=== PATIENT | male | born 1990 | race American Indian/Alaskan Native ===

== ENCOUNTER 2018-04-15 04:46 | Emergency (ER) | payer SELFPAY ==
[2018-04-15 05:45] VITALS: BP 117/71
[2018-04-15 06:18] LABS: Basophils # (Auto) 0.1 K/mm3 (0.0-0.1); Basophils % (Auto) 0.5 % (0.0-1.8); Eosinophils # (Auto) 0.3 K/mm3 (0.0-0.4); Eosinophils % (Auto) 2.4 % (0.0-4.3); Hematocrit 40.1 % (35.5-45.6); Hemoglobin 13.5 gm/dl (11.8-15.2); Lymphocytes # (Auto) 2.1 K/mm3 (1.2-5.4); Lymphocytes % (Auto) 19.4 % (13.4-35.0); Mean Corpuscular HGB Conc 34 % (32-34); Mean Corpuscular Hemoglobin 29 pg (28-32); Mean Corpuscular Volume 87 fl (84-94); Monocytes # (Auto) 0.8 K/mm3 (0.0-0.8); Monocytes % (Auto) 7.3 % (0.0-7.3); Platelet Count 321 K/mm3 (140-440); Red Blood Count 4.61 M/mm3 (3.65-5.03); Red Cell Distribution Width 13.9 % (13.2-15.2)
[2018-04-15 06:30] LABS: BUN/Creatinine Ratio 9; Blood Urea Nitrogen 9 mg/dL (9-20); Calcium 9.2 mg/dL (8.4-10.2); Hemolysis Index 5
== END 2018-04-15 09:00 | disposition left against medical advice (07) ==
LOC: EDBD → ED 04:46
DX: R56.9 Unspecified convulsions (principal); Z53.21 Procedure and treatment not carried out due to patient leaving prior to being seen by health care provider
CPT/HCPCS: 36415; 80048; 85025; G0480; 80320

== ENCOUNTER 2018-04-15 09:00 | Inpatient (IN) | payer MEDICARE, OTHER ==
[2018-04-15 09:45] LABS: Basophils # (Auto) 0.1 K/mm3 (0.0-0.1); Basophils % (Auto) 0.5 % (0.0-1.8); Eosinophils % (Auto) 0.2 % (0.0-4.3); Hematocrit 42.3 % (35.5-45.6); Lymphocytes # (Auto) 0.9 K/mm3 (1.2-5.4); Lymphocytes % (Auto) 8.7 % (13.4-35.0); Mean Corpuscular HGB Conc 33 % (32-34); Mean Corpuscular Hemoglobin 29 pg (28-32); Mean Corpuscular Volume 88 fl (84-94); Monocytes # (Auto) 0.5 K/mm3 (0.0-0.8); Platelet Count 343 K/mm3 (140-440); Red Blood Count 4.82 M/mm3 (3.65-5.03)
[2018-04-15 09:58] LABS: BUN/Creatinine Ratio 13; Blood Urea Nitrogen 13 mg/dL (9-20); Hemolysis Index 5
--- NOTE | 2018-04-15 10:32 | Emergency Department Report ---
ED General Adult HPI - General Chief complaint: Dyspnea/Respdistress Stated complaint: ROLANDO/CP Time Seen by Provider: 04/15/18 10:26 Source: patient, EMS Mode of arrival: Wheelchair Limitations: Altered Mental Status - History of Present Illness Initial comments: A 27-year-old male who presents after being brought in by EMS after patient was picked up at [facility]. Patient initially presented with a complaint of anxiety and was outside of the emergency department. Patient then went over to [facility] and called 911 and EMS states that he was sweating. Patient began breathing heavily and had an elevated heart rate. Patient currently is not answering questions. At 0745 patient was able to hold a conversation with security and patient was able to hold a conversation. Patient states that he is short of breath. Patient was answering in "yes sir" and "no sir" when asked questions. Patient was noted to be diaphoretic however. I spoke with patient's mother and states that he has a history of asthma and panic attacks and patient takes clonazepam. Patient's mother states that he has been on this therapy for the five months and his psychiatrist wants to take him off of this medication. - Related Data Allergies Allergy/AdvReac Type Severity Reaction Status Date / Time No Known Allergies Allergy Unverified 04/15/18 05:37 ED Review of Systems ROS: Stated complaint: ROLANDO/CP Other details as noted in HPI Constitutional: denies: chills, fever Eyes: denies: eye pain, eye discharge, vision change ENT: denies: ear pain, throat pain Respiratory: shortness of breath. denies: cough, wheezing Cardiovascular: denies: chest pain, palpitations Endocrine: no symptoms reported Gastrointestinal: denies: abdominal pain, nausea, diarrhea Genitourinary: denies: urgency, dysuria Musculoskeletal: denies: back pain, joint swelling, arthralgia Skin: denies: rash, lesions Neurological: denies: headache, weakness, paresthesias Psychiatric: denies: anxiety, depression Hematological/Lymphatic: denies: easy bleeding, easy bruising ED Past Medical Hx - Past Medical History Previous Medical History?: No Hx Seizures: Yes Hx Psychiatric Treatment: Yes (anxiety) - Surgical History Past Surgical History?: No - Social History Smoking Status: Never Smoker Substance Use Type: None ED Physical Exam - General Limitations: Altered Mental Status General appearance: alert, other (not answering questions; breathing heavily and periodically looks around room) - Head Head exam: Present: atraumatic, normocephalic - Eye Eye exam: Present: normal appearance - ENT ENT exam: Present: mucous membranes dry - Neck Neck exam: Present: normal inspection - Respiratory Respiratory exam: Present: normal lung sounds bilaterally. Absent: respiratory distress - Cardiovascular Cardiovascular Exam: Present: normal rhythm, tachycardia. Absent: systolic murmur, diastolic murmur, rubs, gallop - GI/Abdominal GI/Abdominal exam: Present: soft, normal bowel sounds - Rectal Rectal exam: Present: deferred - Extremities Exam Extremities exam: Present: normal inspection - Back Exam Back exam: Present: normal inspection - Neurological Exam Neurological exam: Present: other (patient moving upper and lower extremities without difficulty) - Psychiatric Psychiatric exam: Present: anxious, flat affect - Skin Skin exam: Present: warm, dry, intact, normal color. Absent: rash ED Course Vital Signs 04/15/18 04/15/18 04/15/18 09:16 12:06 13:00 Temperature 98.9 F Pulse Rate 133 H 116 H 118 H Respiratory 38 H 38 H 38 H Rate Blood Pressure 130/69 Blood Pressure 125/78 124/68 [Right] O2 Sat by Pulse 97 100 100 Oximetry O2 Sat by Pulse Oximetry [ Anterior Bilateral Throughout] 04/15/18 04/15/18 04/15/18 14:00 15:00 16:32 Temperature 98.5 F Pulse Rate 130 H 122 H 143 H Respiratory 30 H 28 H Rate Blood Pressure Blood Pressure 121/71 121/78 [Right] O2 Sat by Pulse 99 99 98 Oximetry O2 Sat by Pulse Oximetry [ Anterior Bilateral Throughout] 04/15/18 04/15/18 04/15/18 16:46 17:00 17:16 Temperature Pulse Rate 146 H 150 H 151 H Respiratory Rate Blood Pressure 120/77 132/68 128/77 Blood Pressure [Right] O2 Sat by Pulse 98 98 99 Oximetry O2 Sat by Pulse Oximetry [ Anterior Bilateral Throughout] 04/15/18 04/15/18 04/15/18 17:30 17:46 17:50 Temperature 98.0 F Pulse Rate 151 H 157 H 140 H Respiratory 30 H Rate Blood Pressure 128/77 148/92 106/50 Blood Pressure [Right] O2 Sat by Pulse 99 98 Oximetry O2 Sat by Pulse 97 Oximetry [ Anterior Bilateral Throughout] 04/15/18 04/15/18 04/15/18 17:56 18:00 18:15 Temperature Pulse Rate 141 H 138 H 148 H Respiratory Rate Blood Pressure 110/45 106/50 104/38 Blood Pressure [Right] O2 Sat by Pulse 97 Oximetry O2 Sat by Pulse Oximetry [ Anterior Bilateral Throughout] 04/15/18 04/15/18 04/15/18 18:16 18:30 18:46 Temperature Pulse Rate 141 H 152 H 157 H Respiratory Rate Blood Pressure 110/45 104/38 103/40 Blood Pressure [Right] O2 Sat by Pulse 97 98 97 Oximetry O2 Sat by Pulse Oximetry [ Anterior Bilateral Throughout] 04/15/18 04/15/18 04/15/18 19:00 19:15 19:16 Temperature Pulse Rate 146 H 152 H 153 H Respiratory Rate Blood Pressure 92/34 90/35 90/35 Blood Pressure [Right] O2 Sat by Pulse 97 97 Oximetry O2 Sat by Pulse Oximetry [ Anterior Bilateral Throughout] 04/15/18 04/15/18 04/15/18 19:30 19:45 19:46 Temperature Pulse Rate 162 H 167 H 167 H Respiratory Rate Blood Pressure 92/40 115/43 102/39 Blood Pressure [Right] O2 Sat by Pulse 98 97 Oximetry O2 Sat by Pulse Oximetry [ Anterior Bilateral Throughout] 04/15/18 04/15/18 04/15/18 20:00 20:15 20:16 Temperature Pulse Rate 169 H 168 H 169 H Respiratory Rate Blood Pressure 115/43 70/39 115/43 Blood Pressure [Right] O2 Sat by Pulse 97 97 Oximetry O2 Sat by Pulse Oximetry [ Anterior Bilateral Throughout] 04/15/18 20:28 Temperature Pulse Rate 169 H Respiratory Rate Blood Pressure 55/29 Blood Pressure [Right] O2 Sat by Pulse Oximetry O2 Sat by Pulse Oximetry [ Anterior Bilateral Throughout] - Reevaluation(s) Reevaluation #1: 04/15/18 11:51 Patient urinated in the emergency department and began to urinate in other patient's rooms. Patient continues to not speak. Patient's mother presented to the emergency department and states the patient received an Invega shot 1 week previously. Mother states that patient has a diagnoses of bipolar disorder but is not in agreement with that diagnoses. Mother also states the patient was admitted to an inpatient psych facility in [place] 6 months ago. patient has been placed on a 1013. - Central Line Placement Left Femoral Time Out Performed: Yes MD Prep: mask, gown, gloves Central Line Prep: Chlorhexidine scrub Ultrasound Used for Placement: No Central Line Lumen Inserted: triple Bloods Obtained for Lab: Yes Central Line Position: good blood return, all ports aspirated, flus, sutured in place with 3-0, sutured in place with nyl Dressing Applied: Tegaderm - Intubation Sedative: Etomidate Mg Given: 30 Laryngoscope: Stewart Size: 4 ET Tube Size: 7.5 Tube Placement Confirmation: visualized tube passing t, equal breath sounds bilat, confirmation by capnometr Patient Tolerated Procedure: well ED Medical Decision Making - Lab Data Result diagrams: 04/15/18 09:25 04/15/18 09:25 - EKG Data -: EKG Interpreted by Me EKG shows normal: sinus rhythm Rate: tachycardia - EKG Data Interpretation: normal EKG - Radiology Data Radiology results: image reviewed - Medical Decision Making Patient was noted to have an elevated salicylate level. Poison control was consulted. Patient was given an amp of bicarbonate and was started on a bicarbonate drip with 3 amps of bicarbonate in a liter bag going at 150 mL per hour. Poison control also states to hold off on intubation. Poison Control was made aware of the patient's mental status and his tachypnea being present. Patient however remains having a normal O2 saturation on room air of 99%. Poison control and specifically the longwall headgate operator recommends if possible to hold off on intubation stating that the increased respiratory rate that the patient has will be more beneficial to the patient than the patient being on the ventilator. [employer] Field Technician also states that it patient does require ventilator patient will need to have an excessive respiratory rate that matches his current respiratory rate which is currently now 38.. Nephrology was consulted regarding the patient as well. Patient had a Vas-Cath placed in right femoral region and we will be set up for dialysis. Patient to be admitted to the ICU setting. In speaking with poison control they recommended patient to have every hourly labs. These labs include a urine pH, a blood pH, salicylate level, and a CMP level. The potassium level should be 4.0 and if it is under this level that meq of potassium can be added to the bicarbonate drip. Patient also is to meet the parameter of having a urine pH of 7.5-8.0. Patient is to have a serum pH of 7.55 as well. Poison control states to continue to check a salicylate level every hourly until patient's salicylate level normalizes. Poison control will continue to check in on the patient as well. Patient continued to have tachypnea but became less responsive despite having normal oxygen saturation. patient was intubated by myself. ' Dialysis then arrived and after 20 minutes of dialysis. Patient's tachycardia worsened and patient had no pressure to correlate. patient was immediately started on levophed and this was maximed. patient then needed a second pressor and his blood pressure returned. patient to be admitted to the ICU for continued managment and treatment. - Differential Diagnosis STEMI; NSTEMI; Arrythmia; Dehdyration; electrolyte abnormality Critical Care Time: Yes Critical care time in (mins) excluding proc time.: 72 Critical care attestation.: If time is entered above; I have spent that time in minutes in the direct care of this critically ill patient, excluding procedure time. Critical care time includes time spent on direct bedside care, physician consultation, and frequent reassessments. ED Disposition Clinical Impression: Salicylate overdose, Encephalopathy Respiratory failure Qualifiers: Chronicity: acute Respiratory failure complication: hypoxia Qualified Code(s): J96.01 - Acute respiratory failure with hypoxia Disposition: 09 OP ADMIT IP TO THIS HOSP Is pt being admited?: Yes Condition: Stable Time of Disposition: 20:54
[2018-04-15] MEDS ORDERED: NACL 0.9% 1000 ML 1,000 ML IV ONE ×4 (10:47→20:13)
[2018-04-15] MEDS ORDERED: PROVENTIL IH ONE (11:01)
[2018-04-15] MEDS ORDERED: ATIVAN IV ONE ×3 (11:38→14:20)
[2018-04-15] MEDS ORDERED: ATIVAN IM STA (11:46)
[2018-04-15] MEDS ORDERED: ATIVAN ONE (11:49)
[2018-04-15] MEDS ORDERED: SODIUM BICARBONATE 150 MEQ in D5W 1,000 ML IV ONE (13:15)
[2018-04-15] MEDS ORDERED: SODIUM BICARBONATE IV STA (13:25)
[2018-04-15] MEDS ORDERED: SODIUM BICARBONATE IV ONE ×2 (14:00→18:36)
[2018-04-15 14:37] LABS: Amphetamine Screen,Urine PRESUMPTIVE NEGATIVE; Benzodiazepines Screen,Urine PRESUMPTIVE NEGATIVE; Cannabinoid Screen,Urine PRESUMPTIVE NEGATIVE; Cocaine Screen,Urine PRESUMPTIVE NEGATIVE; Methadone Screen,Urine PRESUMPTIVE NEGATIVE; Opiate Screen,Urine PRESUMPTIVE NEGATIVE
--- NOTE | 2018-04-15 14:46 | History and Physical Report ---
History of Present Illness Chief complaint: confused, unresponsive History of present illness: 27 YO Male with Bipolar Disorder, Seizure Disorder, Anxiety presents to ED for evaluation. Pt is confused, and unresponsive at time of exam. Pt is unable to provide history. Pt mother is at bedside during exam and provides history. As per mother, the patient has been under the care of a psychiatrist for the past 5 months for Panic Attacks. EMS was notified after patient was found confused, and wandering in parking lot at [facility]. Pt was confused, and diaphoretic. Pt transported to ED for further care and evaluation. Pt seen and evaluated in ED and found to have Encephalopathy, Salicylate Toxicity,Acidosis, and Acute Respiratory Failure. Pt underwent emergent dialysis catheter placement. Pt admitted to ICU. Nephrology consulted in ED for urgent dialysis. Pulmonary consulted in ED. Pt intubated, sedated and placed on vent support. Poison control notified in ED. Past History Past Medical History: other (bipolar, seizure, anxiety) Past Surgical History: No surgical history, Other (reviewed) Social history: single. denies: smoking, alcohol abuse, prescription drug abuse Medications and Allergies Allergies Allergy/AdvReac Type Severity Reaction Status Date / Time No Known Allergies Allergy Unverified 04/15/18 05:37 Active Meds: Active Medications Sodium Bicarbonate 150 meq/ (Dextrose) 1,150 mls @ 150 mls/hr IV DIRECT ONE Stop: 04/15/18 20:54 Sodium Chloride (Nacl 0.9% 1000 Ml) 1,000 mls @ 999 mls/hr IV BOLUS ONE Stop: 04/15/18 14:46 Review of Systems ROS unobtainable: due to mental status Exam - Constitutional Vitals: Temp Pulse Resp BP Pulse Ox 98.9 F 118 H 38 H 124/68 100 04/15/18 09:16 04/15/18 13:00 04/15/18 13:00 04/15/18 13:00 04/15/18 13:00 General appearance: Present: severe distress, obese - EENT Eyes: Present: miosis - Neck Neck: Present: supple, normal ROM - Respiratory Respiratory effort: labored Respiratory: bilateral: diminished, rhonchi - Cardiovascular Rhythm: other (tachycardia) Heart Sounds: Present: S1 & S2. Absent: rub, click - Extremities Extremities: pulses symmetrical, No edema Peripheral Pulses: within normal limits - Abdominal General gastrointestinal: Present: soft, non-tender, non-distended, normal bowel sounds Male genitourinary: Present: normal - Integumentary Integumentary: Present: clear, dry, clammy, decreased turgor - Musculoskeletal Musculoskeletal: generalized weakness - Psychiatric Psychiatric: no appropriate mood/affect, no intact judgment & insight, no memory intact - Neurologic Neurologic: no gait normal Results - Labs CBC & Chem 7: 04/15/18 09:25 04/15/18 09:25 Labs: Abnormal lab results 04/15/18 04/15/18 04/15/18 Range/Units 09:15 09:25 09:25 Lymph % (Auto) 8.7 L (13.4-35.0) % Lymph # 0.9 L (1.2-5.4) K/mm3 Seg Neutrophils % 85.6 H (40.0-70.0) % Seg Neutrophils # 9.3 H (1.8-7.7) K/mm3 POC ABG pH (7.35-7.45) POC ABG pCO2 (35-45) POC ABG pO2 (80-105) Sodium 136 L (137-145) mmol/L Carbon Dioxide 15 L (22-30) mmol/L Glucose 133 H (75-100) mg/dL POC Glucose 110 H (70-105) Total Creatine Kinase (55-170) units/L Salicylates (2.8-20.0) mg/dL Acetaminophen (10.0-30.0) ug/mL 04/15/18 04/15/18 04/15/18 Range/Units 10:54 10:57 10:57 Lymph % (Auto) (13.4-35.0) % Lymph # (1.2-5.4) K/mm3 Seg Neutrophils % (40.0-70.0) % Seg Neutrophils # (1.8-7.7) K/mm3 POC ABG pH (7.35-7.45) POC ABG pCO2 (35-45) POC ABG pO2 (80-105) Sodium (137-145) mmol/L Carbon Dioxide (22-30) mmol/L Glucose (75-100) mg/dL POC Glucose (70-105) Total Creatine Kinase 190 H (55-170) units/L Salicylates 104.5 H (2.8-20.0) mg/dL Acetaminophen < 5.0 L (10.0-30.0) ug/mL 04/15/18 Range/Units 14:16 Lymph % (Auto) (13.4-35.0) % Lymph # (1.2-5.4) K/mm3 Seg Neutrophils % (40.0-70.0) % Seg Neutrophils # (1.8-7.7) K/mm3 POC ABG pH 7.546 H (7.35-7.45) POC ABG pCO2 14.8 L (35-45) POC ABG pO2 112 H (80-105) Sodium (137-145) mmol/L Carbon Dioxide (22-30) mmol/L Glucose (75-100) mg/dL POC Glucose (70-105) Total Creatine Kinase (55-170) units/L Salicylates (2.8-20.0) mg/dL Acetaminophen (10.0-30.0) ug/mL Assessment and Plan - Patient Problems (1) Encephalopathy Current Visit: Yes Status: Acute Plan to address problem: CT head, neuro checks, supportive care, (2) Respiratory failure Current Visit: Yes Status: Acute Qualifiers: Chronicity: acute Respiratory failure complication: hypoxia Qualified Code(s): J96.01 - Acute respiratory failure with hypoxia Plan to address problem: Pt intubated for airway protection, Pt sedated. Pulmonary consulted in ED, wean vent as tolerated, daily SBT, The high probability of a clinically significant, sudden or life threatening deterioration of the [pulmonary, neuro, renal] system(s) required my full and direct attention, intervention and personal management. The aggregate critical care time was [65] minutes. This time is in addition to time spent performing reported procedures but includes the following: [x] Data Review and interpretation [x] Patient assessment and monitoring of vital signs [x] Documentation [x] Medication orders and management (3) Salicylate poisoning syndrome Current Visit: Yes Status: Acute Qualifiers: Encounter type: initial encounter Plan to address problem: Poison Control consulted in ED, supportive care, IV bicarbonate, serial ABG, BMP , Nephrology consulted for dialysis, Vascular service consulted for urgent dialysis catheter placement. Poison contol recommended labs: urine pH, a blood pH, salicylate level, and CMP level. Serum potassium goal: greater than or equal to 4.0. If less than 4.) then add potassium to the bicarbonate drip. A urine pH of 7.5-8.0. Patient is to have a serum pH of 7.55 as well. Poison control states to continue to check a salicylate level every hourly until patient's salicylate level normalizes. Poison control will continue to check in on the patient as well. (4) Metabolic acidosis Current Visit: Yes Status: Acute Plan to address problem: IVF resuscitation therapy, IV bicarbonate therapy, serial BMP, (5) DVT prophylaxis Current Visit: Yes Status: Acute Plan to address problem: SCD to ble while in bed.
--- NOTE | 2018-04-15 14:50 | XRay Report ---
AP CHEST: HISTORY: Shortness of breath AP view of the chest demonstrates a normal mediastinal and cardiac contour with clear lungs and normal bony and soft tissue structures. IMPRESSION: Unremarkable AP chest.
[2018-04-15] MEDS ORDERED: HEPARIN/NS 5000 UNIT/500ML(CATH LAB) 1,000 ML IR ONE (15:14)
[2018-04-15] MEDS ORDERED: VERSED ONE (15:14)
[2018-04-15] MEDS ORDERED: SUBLIMAZE ONE (15:14)
[2018-04-15] MEDS ORDERED: HEPARIN 10,000 UNITS/10 ML ONE (15:14)
[2018-04-15] MEDS ORDERED: NITROGLYCERIN SYRINGE 0 ML ONE (15:15)
[2018-04-15] MEDS ORDERED: XYLOCAINE 2% INFILTRATI ONE (15:15)
--- NOTE | 2018-04-15 15:29 | Operative Report ---
Operative Report Operative Report: Exam: Ultrasound and fluoroscopic guided placement of Vas-Cath Clinical indication: Patient with a history of altered mental status and electrolyte imbalances, combative Date: 04/15/2018 Procedure: Following an explanation of the risks, benefits and alternatives; written informed consent was obtained. Patient was brought to the injury graphic suite and placed in supine position on the examination table. Initial ultrasound evaluation of his groin demonstrated a patent right common femoral vein. Patient's groin was prepped and draped in usual sterile fashion. 1% lidocaine was used for anesthesia. Under ultrasound guidance, the right common femoral vein was cannulated with a 7 cm 18-gauge needle. A 0.035 guidewire was advanced into the IVC under fluoroscopy to document intravenous positioning. The needle was removed and following serial dilation, a 30 cm dialysis catheter was placed over the guidewire and advance centrally. The guidewire was removed. All 3 ports flushed and aspirated easily and were then locked with appropriate volumes of heparin. The catheter was securely fastened of the skin surface using 2-0 Ethilon suture and a sterile dressing applied. Patient tolerated the procedure well. There were no immediate post procedure complications. Sedation was not utilize secondary to patient's obtunded status. Continuous cardiopulmonary monitoring was utilized. Impression: 1) Ultrasound and fluoroscopic guided placement of vas cath via the right common femoral vein secondary to patient's combative state and altered mental status.
[2018-04-15] MEDS ORDERED: NACL 0.9% 100 ML IV PRN (16:14)
--- NOTE | 2018-04-15 16:15 | Consultation ---
History of Present Illness - History of Present Illness Thank you for the consultation ! Patient was evaluated today My assessment and plan are as follows; Altered mental status with elevated acetyl salicylic acid level, and a patient who deliberately took significant amount of aspirin, though difficult to find how many according to patient's mother she noticed he was taking too many aspirin tablets in the last 48 hours patient also does have metabolic acidosis hyperventilation[facility] been recommended Had a long discussion with patient's mother at the bedside at this time dialysis catheter has been placed we'll start the patient on hemodialysis for at least 4 hours At the same time I would recommend alkalization of the urine with bicarbonate containing fluid aggressive hydration and close follow-up on the renal function His prognosis is currently guarded this was clearly explained to the patient's mother Altered mental status: Slowly improving at this time aggressive hydration close monitoring of electrolytes We'll continue to follow and make recommendations from renal standpoint Patient's mother was adequately counseled and educated regarding multiple renal related issues. overall prognosis remains guarded at this time All renal related questions were answered and simple Macedonian pertinent lab studies as well as imaging results were also discussed with patient's mother We will continue to follow and make recommendations from renal standpoint. Thank you for the consultation Author: Ulysses Chu M.D. [facility], [address] [place] [address] Tel; [phone] Source of information: From patient History of present illness Patient is a 27-year-old -Tongan male with history of underlying bipolar disorder and anxiety asthma, will also has been experiencing chronic back pain for which he has been followed by Dr. Manjeet Taylor. Patient also follows up with [facility], where he is being treated for bipolar disorder, according to patient's mother who is here at the bedside, she found him taking too many aspirin tablets which were in generic form, but she does not know how many she took is breathing started becoming labored and he was brought into the ER where he was noted to have metabolic acidosis hyperventilation altered mental status and elevated acetyl salicylic acid, by the time I came to see the patient he was somewhat arousable but still was hyperventilating, and his mother was at the bedside According to the mother he has no prior history of any suicidal gesture, other than taking aspirin tablets she does not think that it did anything else His sensorium when he came in was quite altered but he is slowly waking up Poison center has been contacted, dialysis has been recommended Past medical history significant for Bipolar disorder Asthma Anxiety Current allergies: None Home medication: Reviewed Social history patient has psychiatric problems Family history unable to obtain due to altered mental status Review of systems: Patient has altered mental status Labored breathing mild tachycardia on the monitor approximately 125/minute all other review of systems negativ Physical examination General: Well-built -Tongan male Vitals: Reviewed General: No acute distress, but patient has mildly labored sherlyn HEENT: Oral mucosa moist no pallor or icterus Neck: Supple without any JVD thyromegaly or nodular mass Chest: Clear to auscultation Heart: Regular rate and rhythm S1-S2 heard no S3-S4 Abdomen: Soft nontender, bowel sounds present no renal bruit no suprapubic masses no CVA tenderness noted Extremity: Minimal edema dry skin no peripheral cyanosis Endocrine: Thyroid not enlarged Psychiatric: No agitation and aggression noted Musculoskeletal: No joint effusion noted Labs and x-rays: Reviewed from this admission Medications and Allergies Allergies Allergy/AdvReac Type Severity Reaction Status Date / Time No Known Allergies Allergy Unverified 04/15/18 05:37 Active Meds: Active Medications Albuterol (Proventil) 2.5 mg IH Q3HRT PRN PRN Reason: Shortness Of Breath Sodium Bicarbonate 150 meq/ (Dextrose) 1,150 mls @ 150 mls/hr IV DIRECT ONE Stop: 04/15/18 20:54 Last Admin: 04/15/18 13:30 Dose: 150 mls/hr Sodium Chloride (Sodium Chloride Flush Syringe 10 Ml) 10 ml IV BID ANASTASIA Sodium Chloride (Sodium Chloride Flush Syringe 10 Ml) 10 ml IV PRN PRN PRN Reason: LINE FLUSH Exam - Vital Signs Vital signs: Vital Signs Temp Pulse Resp BP Pulse Ox 98.9 F 133 H 38 H 130/69 97 04/15/18 09:16 04/15/18 09:16 04/15/18 09:16 04/15/18 09:16 04/15/18 09:16 Results - Lab Results 04/15/18 09:25 04/15/18 09:25 Most recent lab results Calcium 9.0 mg/dL (8.4-10.2) 04/15/18 09:25
[2018-04-15] MEDS ORDERED: DIPRIVAN 10 MG/ML 0 MG/0 ML BOTTLE IV ONE (17:25)
[2018-04-15] MEDS ORDERED: DIPRIVAN 10 MG/ML 1,000 MG/100 ML BOTTLE IV ONE (17:28)
[2018-04-15] MEDS: DIPRIVAN 10 MG/ML 1,000 MG/100 ML BOTTLE IV SCH (17:30)
--- NOTE | 2018-04-15 18:28 | XRay Report ---
FINAL REPORT EXAM: XR CHEST 1V AP HISTORY: s/p intubation TECHNIQUE: Frontal portable view of the chest Comparison: None FINDINGS: The tip of the endotracheal tube is projected at the inferior aspect of the clavicles. There is no evidence of focal infiltrate, pneumothorax or pleural fluid collection. The cardiac silhouette appears to be enlarged. This may be exaggerated by portable technique. The thoracic aorta and bony structures are unremarkable. IMPRESSION: 1. Tip of endotracheal tube projected in satisfactory position at the inferior aspect of the clavicles. 2. The cardiac silhouette appears to be enlarged. This may be exaggerated by portable technique.
[2018-04-15] MEDS: LEVOPHED 8 MG in NACL 0.9% 250ML 242 ML IV SCH (18:30)
[2018-04-15] MEDS ORDERED: LEVOPHED DRIP 4 MG/NS 250 ML 4 MG/250 ML BAG IV ONE ×2 (18:48→21:33)
[2018-04-15] MEDS ORDERED: NACL 0.9% 1000 ML 1,000 ML ONE ×2 (18:58→19:36)
[2018-04-15] MEDS ORDERED: INTROPIN DRIP 800 MG/D5W 250 ML 800 MG/250 ML BAG IV ONE (19:17)
[2018-04-15] MEDS ORDERED: AMIDATE IV ONE ×2 (19:19→20:14)
[2018-04-15] MEDS: Vasostrict 20 UNIT in NACL 0.9% 100 ML IV SCH (19:20)
[2018-04-15] MEDS ORDERED: NACL 0.9% 1000 ML 4,000 ML ONE (19:58)
[2018-04-15] MEDS ORDERED: INTROPIN DRIP 800 MG/D5W 250 ML 800 MG/250 ML BAG IV SCH (20:00)
[2018-04-15] MEDS ORDERED: ADRENALIN 8 MG in NACL 0.9% 250ML 242 ML IV SCH (20:00)
[2018-04-15] MEDS ORDERED: QUELICIN ONE (20:14)
[2018-04-15] MEDS ORDERED: ROMAZICON IV ONE (20:14)
[2018-04-15] MEDS ORDERED: NACL 0.9% 1000 ML 4,000 ML IV SCH (21:00)
[2018-04-16] MEDS: LEVOPHED 8 MG in NACL 0.9% 250ML 242 ML IV SCH ×4 (00:07→13:48)
[2018-04-16] MEDS: SODIUM CHLORIDE FLUSH SYRINGE 10 ML IV SCH ×2 (00:08→09:05)
[2018-04-16] MEDS: DIPRIVAN 10 MG/ML 1,000 MG/100 ML BOTTLE IV SCH ×2 (00:14→04:35)
[2018-04-16 00:42] LABS: Alanine Aminotransferase 38 units/L (7-56); Albumin 2.9 g/dL (3.9-5); BUN/Creatinine Ratio 13; Blood Urea Nitrogen 21 mg/dL (9-20); Calcium 6.3 mg/dL (8.4-10.2); Hemolysis Index 3
[2018-04-16] MEDS ORDERED: K-DUR PO ONE ×2 (01:08→21:30)
[2018-04-16] MEDS ORDERED: MOTRIN PO ONE (01:10)
--- NOTE | 2018-04-16 01:15 | Event Note ---
Case discussed with poison control Will check salicylate level q4h and other parameters as outlined in [facility] note salicylate Level came back at 50, start bicarb drip, replete potassium SIRS, start emperic antibiotics, check lactate, blood culture, give 1 dose of motrin Keep glucose between 150-200, check fingersticks q1h Case discussed with poison control The high probability of a clinically significant, sudden or life threatening deterioration of the [respiratory, hemodynamic and neurological] system(s) required my full and direct attention, intervention and personal management. The aggregate critical care time was [40] minutes. This time is in addition to time spent performing reported procedures but includes the following: [x] Data Review and interpretation [x] Patient assessment and monitoring of vital signs [x] Documentation [x] Medication orders and management Addendum Spoke with poison control again Adoption Coordinator suggested another round of hemodialysis would be appropriate salicylate levels decreasing, increased bicarbonate drip
[2018-04-16 01:27] LABS: Bilirubin,Urine NEG (Negative); Blood,Urine NEG (Negative); Color,Urine Yellow (Yellow); Urobilinogen,Urine < 2.0 mg/dL (<2.0)
[2018-04-16] MEDS: KCL 10MEQ/100ML 10 MEQ/100 ML BAG IV SCH ×4 (01:51→05:46)
[2018-04-16] MEDS ORDERED: VANCOMYCIN 2,000 MG in NACL 0.9% 500 ML 500 ML IV ONE (02:00)
[2018-04-16] MEDS ORDERED: VANCOMYCIN/NS 1 GM/250 ML 1 GM/250 ML BAG IV SCH (02:00)
[2018-04-16] MEDS: ZOSYN/NS 4.5GM/100ML 4.5 GM/100 ML VIAL IV SCH ×2 (02:08→09:14)
[2018-04-16] MEDS: SODIUM BICARBONATE 150 MEQ in D5W 1,000 ML IV SCH ×3 (02:31→19:25)
[2018-04-16] MEDS ORDERED: D50W (25GM) Syringe IV PRN (03:03)
[2018-04-16 03:20] LABS: Calcium 6.4 mg/dL (8.4-10.2)
[2018-04-16] MEDS ORDERED: POTASSIUM CHLORIDE FEEDTUBE ONE ×3 (03:20→14:00)
[2018-04-16] MEDS: D50W (25GM) Syringe IV PRN ×14 (03:35→22:57)
[2018-04-16] MEDS: Vasostrict 20 UNIT in NACL 0.9% 100 ML IV SCH (06:05)
[2018-04-16] MEDS: NACL 0.9% 1000 ML 1,000 ML IV SCH ×5 (06:09→21:40)
[2018-04-16 07:13] LABS: Calcium 6.5 mg/dL (8.4-10.2)
--- NOTE | 2018-04-16 08:47 | Progress Note ---
Subjective Interval history: Patient was seen today for follow-up on multiple renal related issues Events of this hospitalization noted Has had hemodialysis yesterday, Patient has had profound hypotension tachycardia received IV fluid Salicylate level still elevated, poison Center has already been contacted Patient denies having any chest pain pressure or shortness of breath Vitals labs intake output medications were reviewed Social history: Reviewed Allergies: Reviewed Family history: Reviewed Physical examination HEENT: Oral mucosa moist no pallor or icterus Neck: Supple no JVD Chest: Clear to auscultation anteriorly CVS: Regular rate and rhythm S1 and S2 heard Abdomen: Soft nontender no suprapubic masses no organomegaly appreciable Extremity: Dry skin less than 1+ peripheral edema Musculoskeletal: No joint effusion noted in knees and ankle Neurological: Alert awake Dermatology: No petechial rashes Psychiatry: No evidence of any agitation and aggression noted Assessment and plan Salicylate intoxication, status post hemodialysis Acute renal failure likely due to above, continue to follow and monitor renal function patient also has had profound hypotension volume depletion likely has developed acute tubular necrosis Continue with urine alkalinization, at the same time correct the potassium Please avoid Motrin with acute kidney injury Hypocalcemia continue to monitor, will give IV calcium today Hypokalemia goal potassium was around 4 check magnesium level as well Would also like to check a lactic acid level today Prognosis is guarded to poor with current comorbidities this has been clearly explained to patient's mother as of yesterday as well Continue with the supportive care for now we'll continue to follow and make recommendation from renal standpoint We'll continue to follow and make recommendation from renal standpoint Objective - Vital Signs Vital signs: Vital Signs - 12hr 04/15/18 04/15/18 04/15/18 20:48 21:00 21:15 Temperature Pulse Rate 164 H 163 H 160 H Pulse Rate [ From Monitor] Respiratory Rate Blood Pressure 68/27 68/27 71/32 O2 Sat by Pulse 98 Oximetry O2 Sat by Pulse Oximetry [ Anterior Bilateral Throughout] 04/15/18 04/15/18 04/15/18 21:16 21:30 21:45 Temperature Pulse Rate 163 H 159 H 151 H Pulse Rate [ From Monitor] Respiratory Rate Blood Pressure 67/25 71/32 77/34 O2 Sat by Pulse 98 98 Oximetry O2 Sat by Pulse Oximetry [ Anterior Bilateral Throughout] 09/19/18 09/19/18 09/19/18 21:46 22:00 22:14 Temperature 97.0 F L Pulse Rate 151 H 147 H 148 H Pulse Rate [ From Monitor] Respiratory 20 Rate Blood Pressure 70/31 77/34 95/38 O2 Sat by Pulse 98 98 Oximetry O2 Sat by Pulse 97 Oximetry [ Anterior Bilateral Throughout] 04/15/18 04/15/18 04/15/18 22:16 23:00 23:07 Temperature Pulse Rate 146 H 142 H Pulse Rate [ 140 H From Monitor] Respiratory 35 H 35 H Rate Blood Pressure 95/38 O2 Sat by Pulse 98 99 99 Oximetry O2 Sat by Pulse Oximetry [ Anterior Bilateral Throughout] 04/15/18 04/15/18 04/15/18 23:10 23:20 23:30 Temperature Pulse Rate 141 H 139 H 138 H Pulse Rate [ From Monitor] Respiratory 35 H 35 H 35 H Rate Blood Pressure 102/39 102/44 O2 Sat by Pulse 99 99 99 Oximetry O2 Sat by Pulse Oximetry [ Anterior Bilateral Throughout] 04/15/18 04/15/18 04/15/18 23:40 23:43 23:50 Temperature Pulse Rate 139 H 139 H 138 H Pulse Rate [ From Monitor] Respiratory 35 H 36 H 36 H Rate Blood Pressure 105/44 105/44 110/45 O2 Sat by Pulse 99 99 99 Oximetry O2 Sat by Pulse Oximetry [ Anterior Bilateral Throughout] 04/16/18 04/16/18 04/16/18 00:00 00:03 00:06 Temperature 101.6 F H Pulse Rate 138 H 138 H 139 H Pulse Rate [ 142 H From Monitor] Respiratory 37 H 37 H Rate Blood Pressure 110/45 104/45 109/46 O2 Sat by Pulse 99 99 99 Oximetry O2 Sat by Pulse Oximetry [ Anterior Bilateral Throughout] 04/16/18 04/16/18 04/16/18 00:10 00:20 00:30 Temperature Pulse Rate 140 H 141 H 142 H Pulse Rate [ From Monitor] Respiratory 37 H 35 H 37 H Rate Blood Pressure 107/44 107/44 109/48 O2 Sat by Pulse 99 97 98 Oximetry O2 Sat by Pulse Oximetry [ Anterior Bilateral Throughout] 04/16/18 04/16/18 04/16/18 00:40 00:50 01:00 Temperature Pulse Rate 142 H 142 H 142 H Pulse Rate [ From Monitor] Respiratory 37 H 38 H 37 H Rate Blood Pressure 111/52 111/52 112/51 O2 Sat by Pulse 97 97 97 Oximetry O2 Sat by Pulse Oximetry [ Anterior Bilateral Throughout] 04/16/18 04/16/18 04/16/18 01:10 01:20 01:30 Temperature Pulse Rate 141 H 142 H 140 H Pulse Rate [ From Monitor] Respiratory 37 H 39 H 38 H Rate Blood Pressure 115/49 113/52 101/37 O2 Sat by Pulse 97 97 97 Oximetry O2 Sat by Pulse Oximetry [ Anterior Bilateral Throughout] 04/16/18 04/16/18 04/16/18 01:40 01:50 02:00 Temperature Pulse Rate 139 H 140 H 138 H Pulse Rate [ 142 H From Monitor] Respiratory 37 H 37 H 37 H Rate Blood Pressure 102/46 109/45 102/47 O2 Sat by Pulse 97 97 97 Oximetry O2 Sat by Pulse Oximetry [ Anterior Bilateral Throughout] 04/16/18 04/16/18 04/16/18 02:10 02:20 02:30 Temperature Pulse Rate 139 H 139 H 139 H Pulse Rate [ From Monitor] Respiratory 37 H 38 H 37 H Rate Blood Pressure 102/47 108/46 104/43 O2 Sat by Pulse 96 96 96 Oximetry O2 Sat by Pulse Oximetry [ Anterior Bilateral Throughout] 04/16/18 04/16/18 04/16/18 02:40 02:50 03:00 Temperature Pulse Rate 138 H 136 H 136 H Pulse Rate [ From Monitor] Respiratory 36 H 38 H 38 H Rate Blood Pressure 114/42 106/48 116/46 O2 Sat by Pulse 97 97 97 Oximetry O2 Sat by Pulse Oximetry [ Anterior Bilateral Throughout] 04/16/18 04/16/18 04/16/18 03:10 03:20 03:30 Temperature Pulse Rate 135 H 136 H 134 H Pulse Rate [ From Monitor] Respiratory 38 H 39 H 36 H Rate Blood Pressure 107/46 111/47 111/49 O2 Sat by Pulse 97 97 97 Oximetry O2 Sat by Pulse Oximetry [ Anterior Bilateral Throughout] 04/16/18 04/16/18 04/16/18 03:35 03:40 03:50 Temperature Pulse Rate 133 H 132 H Pulse Rate [ From Monitor] Respiratory 39 H 38 H Rate Blood Pressure 111/49 118/50 116/51 O2 Sat by Pulse 97 96 96 Oximetry O2 Sat by Pulse Oximetry [ Anterior Bilateral Throughout] 04/16/18 04/16/18 04/16/18 04:00 04:10 04:20 Temperature Pulse Rate 129 H 126 H 127 H Pulse Rate [ From Monitor] Respiratory 37 H 38 H 36 H Rate Blood Pressure 119/47 110/50 112/49 O2 Sat by Pulse 96 96 96 Oximetry O2 Sat by Pulse Oximetry [ Anterior Bilateral Throughout] 04/16/18 04/16/18 04/16/18 04:30 04:40 04:50 Temperature Pulse Rate 128 H 126 H 126 H Pulse Rate [ From Monitor] Respiratory 37 H 36 H 37 H Rate Blood Pressure 110/45 102/46 106/46 O2 Sat by Pulse 95 96 96 Oximetry O2 Sat by Pulse Oximetry [ Anterior Bilateral Throughout] 04/16/18 04/16/18 04/16/18 05:00 05:10 05:20 Temperature Pulse Rate 125 H 122 H 122 H Pulse Rate [ From Monitor] Respiratory 36 H 37 H 37 H Rate Blood Pressure 107/45 103/50 107/49 O2 Sat by Pulse 96 97 96 Oximetry O2 Sat by Pulse Oximetry [ Anterior Bilateral Throughout] 04/16/18 04/16/18 04/16/18 05:30 05:40 05:50 Temperature Pulse Rate 124 H 123 H 123 H Pulse Rate [ From Monitor] Respiratory 37 H 37 H 37 H Rate Blood Pressure 106/48 101/47 100/49 O2 Sat by Pulse 96 96 96 Oximetry O2 Sat by Pulse Oximetry [ Anterior Bilateral Throughout] 04/16/18 04/16/18 04/16/18 06:00 06:10 06:20 Temperature 99.1 F Pulse Rate 123 H 123 H 123 H Pulse Rate [ 142 H From Monitor] Respiratory 36 H 37 H 38 H Rate Blood Pressure 91/46 109/49 109/49 O2 Sat by Pulse 96 96 95 Oximetry O2 Sat by Pulse Oximetry [ Anterior Bilateral Throughout] 04/16/18 04/16/18 04/16/18 06:30 06:40 06:50 Temperature Pulse Rate 123 H 123 H 121 H Pulse Rate [ From Monitor] Respiratory 36 H 37 H 38 H Rate Blood Pressure 112/48 113/49 112/50 O2 Sat by Pulse 95 95 96 Oximetry O2 Sat by Pulse Oximetry [ Anterior Bilateral Throughout] 04/16/18 04/16/18 04/16/18 07:00 07:10 07:20 Temperature Pulse Rate 122 H 123 H 124 H Pulse Rate [ From Monitor] Respiratory 37 H 36 H 38 H Rate Blood Pressure 110/50 110/50 100/55 O2 Sat by Pulse 96 95 95 Oximetry O2 Sat by Pulse Oximetry [ Anterior Bilateral Throughout] 04/16/18 04/16/18 04/16/18 07:31 07:40 07:50 Temperature Pulse Rate 124 H 124 H 123 H Pulse Rate [ From Monitor] Respiratory 36 H 36 H 38 H Rate Blood Pressure 97/46 101/50 102/52 O2 Sat by Pulse 95 95 95 Oximetry O2 Sat by Pulse Oximetry [ Anterior Bilateral Throughout] 04/16/18 04/16/18 08:00 08:10 Temperature 100.2 F H Pulse Rate 121 H 121 H Pulse Rate [ 118 H From Monitor] Respiratory 35 H 36 H Rate Blood Pressure 108/52 113/49 O2 Sat by Pulse 97 96 Oximetry O2 Sat by Pulse Oximetry [ Anterior Bilateral Throughout] - Lab 04/15/18 09:25 04/16/18 06:34 Most recent lab results Calcium 6.5 mg/dL (8.4-10.2) L 04/16/18 06:34
--- NOTE | 2018-04-16 09:28 | Progress Note ---
Assessment and Plan Assessment and plan: 1. Ventilator dependent Respiratory failure Pt intubated for airway protection/sedated Pulmonary following 2. Encephalopathy CT head neuro checks, supportive care 3. Salicylate poisoning syndrome Continue Poison Control recommendation IV bicarbonate, serial ABG, BMP Nephrology following 4. Acute Metabolic acidosis IVF resuscitation therapy IV bicarbonate therapy, serial BMP 5. Acute renal failure HD today Monitor urine output IV fluid for hydration/renal perfusion 6. Hypokalemia Replace potassium and magnesium Recheck potassium/mag level post HD GI/ DVT prophylaxis The high probability of a clinically significant, sudden or life threatening deterioration of the [pulmonary, neuro, renal] system(s) required my full and direct attention, intervention and personal management. The aggregate critical care time was [65] minutes. This time is in addition to time spent performing reported procedures but includes the following: [x] Data Review and interpretation [x] Patient assessment and monitoring of vital signs [x] Documentation [x] Medication orders and management History Interval history: Pt is intubated and sedated Hospitalist Physical - Constitutional Vitals: Temp Pulse Resp BP Pulse Ox 100.2 F H 118 H 35 H 104/47 96 04/16/18 08:00 04/16/18 09:10 04/16/18 09:10 04/16/18 09:10 04/16/18 09:10 General appearance: Present: severe distress, obese, other (intubated) - Respiratory Respiratory effort: normal, other (mild labor breathing) Respiratory: bilateral: CTA - Cardiovascular Rhythm: regular (tachy) - Extremities Extremity abnormal: edema (trace) Peripheral Pulses: within normal limits - Integumentary Integumentary: Present: clear, warm, dry - Psychiatric Psychiatric: other (unable to evaluate) Results - Labs CBC & Chem 7: 04/15/18 09:25 04/16/18 10:42 Labs: Laboratory Last Values WBC 10.9 K/mm3 (4.5-11.0) 04/15/18 09:25 RBC 4.82 M/mm3 (3.65-5.03) 04/15/18 09:25 Hgb 14.0 gm/dl (11.8-15.2) 04/15/18 09:25 Hct 42.3 % (35.5-45.6) 04/15/18 09:25 MCV 88 fl (84-94) 04/15/18 09:25 MCH 29 pg (28-32) 04/15/18 09:25 MCHC 33 % (32-34) 04/15/18 09:25 RDW 14.0 % (13.2-15.2) 04/15/18 09:25 Plt Count 343 K/mm3 (140-440) 04/15/18 09:25 Lymph % (Auto) 8.7 % (13.4-35.0) L 04/15/18 09:25 [place] % (Auto) 5.0 % (0.0-7.3) 04/15/18 09:25 Eos % (Auto) 0.2 % (0.0-4.3) 04/15/18 09:25 Baso % (Auto) 0.5 % (0.0-1.8) 04/15/18 09:25 Lymph # 0.9 K/mm3 (1.2-5.4) L 04/15/18 09:25 [place] # 0.5 K/mm3 (0.0-0.8) 04/15/18 09:25 Eos # 0.0 K/mm3 (0.0-0.4) 04/15/18 09:25 Baso # 0.1 K/mm3 (0.0-0.1) 04/15/18 09:25 Seg Neutrophils % 85.6 % (40.0-70.0) H 04/15/18 09:25 Seg Neutrophils # 9.3 K/mm3 (1.8-7.7) H 04/15/18 09:25 POC ABG pH 7.430 (7.35-7.45) 04/16/18 06:20 POC ABG pCO2 34.9 (35-45) L 04/16/18 06:20 POC ABG pO2 93 (80-105) 04/16/18 06:20 POC ABG HCO3 23.2 04/16/18 06:20 POC ABG Total CO2 24 04/16/18 06:20 POC ABG O2 Sat 98 04/16/18 06:20 POC ABG Base Excess -1 04/16/18 06:20 FiO2 30 % 04/16/18 06:20 Sodium 142 mmol/L (137-145) 04/16/18 06:34 Potassium 3.2 mmol/L (3.6-5.0) L 04/16/18 06:34 Chloride 103.5 mmol/L (98-107) 04/16/18 06:34 Carbon Dioxide 23 mmol/L (22-30) 04/16/18 06:34 Anion Gap 19 mmol/L 04/16/18 06:34 BUN 29 mg/dL (9-20) H 04/16/18 06:34 Creatinine 2.2 mg/dL (0.8-1.5) H 04/16/18 06:34 Estimated GFR 43 ml/min 04/16/18 06:34 BUN/Creatinine Ratio 13 % 04/16/18 06:34 Glucose 129 mg/dL (75-100) H 04/16/18 06:34 POC Glucose 121 (70-105) H 04/16/18 08:19 Calcium 6.5 mg/dL (8.4-10.2) L 04/16/18 06:34 Total Bilirubin < 0.20 mg/dL (0.1-1.2) 04/15/18 23:55 AST 85 units/L (5-40) H 04/15/18 23:55 ALT 38 units/L (7-56) 04/15/18 23:55 Alkaline Phosphatase 42 units/L (35-129) 04/15/18 23:55 Total Creatine Kinase 190 units/L (55-170) H 04/15/18 10:57 Troponin T < 0.010 ng/mL (0.00-0.029) 04/15/18 10:57 Total Protein 4.9 g/dL (6.3-8.2) L 04/15/18 23:55 Albumin 2.9 g/dL (3.9-5) L 04/15/18 23:55 Albumin/Globulin Ratio 1.5 % 04/15/18 23:55 Urine Color Yellow (Yellow) 04/15/18 Unknown Urine Turbidity Clear (Clear) 04/15/18 Unknown Urine pH 6.0 (5.0-7.0) 04/15/18 Unknown Ur Specific [place] 1.015 (1.003-1.030) 04/15/18 Unknown Urine Protein 100 mg/dl mg/dL (Negative) 04/15/18 Unknown Urine Glucose (UA) 50 mg/dL (Negative) 04/15/18 Unknown Urine Ketones 20 mg/dL (Negative) 04/15/18 Unknown Urine Blood Neg (Negative) 04/15/18 Unknown Urine Nitrite Neg (Negative) 04/15/18 Unknown Urine Bilirubin Neg (Negative) 04/15/18 Unknown Urine Urobilinogen < 2.0 mg/dL (<2.0) 04/15/18 Unknown Ur Leukocyte Esterase Neg (Negative) 04/15/18 Unknown Urine WBC (Auto) 4.0 /HPF (0.0-6.0) 04/15/18 Unknown Urine RBC (Auto) 2.0 /HPF (0.0-6.0) 04/15/18 Unknown Salicylates 49.2 mg/dL (2.8-20.0) H 04/16/18 06:34 Urine Opiates Screen Presumptive negative 04/15/18 Unknown Urine Methadone Screen Presumptive negative 04/15/18 Unknown Acetaminophen < 5.0 ug/mL (10.0-30.0) L 04/15/18 10:54 Ur Barbiturates Screen Presumptive negative 04/15/18 Unknown Ur Phencyclidine Scrn Presumptive negative 04/15/18 Unknown Ur Amphetamines Screen Presumptive negative 04/15/18 Unknown U Benzodiazepines Scrn Presumptive negative 04/15/18 Unknown Urine Cocaine Screen Presumptive negative 04/15/18 Unknown U Marijuana (THC) Screen Presumptive negative 04/15/18 Unknown Drugs of Abuse Note Disclamer 04/15/18 Unknown Plasma/Serum Alcohol < 0.01 % (0-0.07) 04/15/18 10:56
[2018-04-16] MEDS ORDERED: PEPCID IV SCH (10:00)
--- NOTE | 2018-04-16 10:09 | Progress Note ---
Subjective Date of service: 04/16/18 Objective Vital Signs - 12hr 04/15/18 04/15/18 04/15/18 22:14 22:16 23:00 Temperature 97.0 F L Pulse Rate 148 H 146 H Pulse Rate [ 140 H From Monitor] Respiratory 20 35 H Rate Blood Pressure 95/38 95/38 O2 Sat by Pulse 98 99 Oximetry O2 Sat by Pulse 97 Oximetry [ Anterior Bilateral Throughout] 04/15/18 04/15/18 04/15/18 23:07 23:10 23:20 Temperature Pulse Rate 142 H 141 H 139 H Pulse Rate [ From Monitor] Respiratory 35 H 35 H 35 H Rate Blood Pressure 102/39 O2 Sat by Pulse 99 99 99 Oximetry O2 Sat by Pulse Oximetry [ Anterior Bilateral Throughout] 04/15/18 04/15/18 04/15/18 23:30 23:40 23:43 Temperature Pulse Rate 138 H 139 H 139 H Pulse Rate [ From Monitor] Respiratory 35 H 35 H 36 H Rate Blood Pressure 102/44 105/44 105/44 O2 Sat by Pulse 99 99 99 Oximetry O2 Sat by Pulse Oximetry [ Anterior Bilateral Throughout] 04/15/18 04/16/18 04/16/18 23:50 00:00 00:03 Temperature 101.6 F H Pulse Rate 138 H 138 H 138 H Pulse Rate [ 142 H From Monitor] Respiratory 36 H 37 H Rate Blood Pressure 110/45 110/45 104/45 O2 Sat by Pulse 99 99 99 Oximetry O2 Sat by Pulse Oximetry [ Anterior Bilateral Throughout] 04/16/18 04/16/18 04/16/18 00:06 00:10 00:20 Temperature Pulse Rate 139 H 140 H 141 H Pulse Rate [ From Monitor] Respiratory 37 H 37 H 35 H Rate Blood Pressure 109/46 107/44 107/44 O2 Sat by Pulse 99 99 97 Oximetry O2 Sat by Pulse Oximetry [ Anterior Bilateral Throughout] 04/16/18 04/16/18 04/16/18 00:30 00:40 00:50 Temperature Pulse Rate 142 H 142 H 142 H Pulse Rate [ From Monitor] Respiratory 37 H 37 H 38 H Rate Blood Pressure 109/48 111/52 111/52 O2 Sat by Pulse 98 97 97 Oximetry O2 Sat by Pulse Oximetry [ Anterior Bilateral Throughout] 04/16/18 04/16/18 04/16/18 01:00 01:10 01:20 Temperature Pulse Rate 142 H 141 H 142 H Pulse Rate [ From Monitor] Respiratory 37 H 37 H 39 H Rate Blood Pressure 112/51 115/49 113/52 O2 Sat by Pulse 97 97 97 Oximetry O2 Sat by Pulse Oximetry [ Anterior Bilateral Throughout] 04/16/18 04/16/18 04/16/18 01:30 01:40 01:50 Temperature Pulse Rate 140 H 139 H 140 H Pulse Rate [ From Monitor] Respiratory 38 H 37 H 37 H Rate Blood Pressure 101/37 102/46 109/45 O2 Sat by Pulse 97 97 97 Oximetry O2 Sat by Pulse Oximetry [ Anterior Bilateral Throughout] 04/16/18 04/16/18 04/16/18 02:00 02:10 02:20 Temperature Pulse Rate 138 H 139 H 139 H Pulse Rate [ 142 H From Monitor] Respiratory 37 H 37 H 38 H Rate Blood Pressure 102/47 102/47 108/46 O2 Sat by Pulse 97 96 96 Oximetry O2 Sat by Pulse Oximetry [ Anterior Bilateral Throughout] 04/16/18 04/16/18 04/16/18 02:30 02:40 02:50 Temperature Pulse Rate 139 H 138 H 136 H Pulse Rate [ From Monitor] Respiratory 37 H 36 H 38 H Rate Blood Pressure 104/43 114/42 106/48 O2 Sat by Pulse 96 97 97 Oximetry O2 Sat by Pulse Oximetry [ Anterior Bilateral Throughout] 04/16/18 04/16/18 04/16/18 03:00 03:10 03:20 Temperature Pulse Rate 136 H 135 H 136 H Pulse Rate [ From Monitor] Respiratory 38 H 38 H 39 H Rate Blood Pressure 116/46 107/46 111/47 O2 Sat by Pulse 97 97 97 Oximetry O2 Sat by Pulse Oximetry [ Anterior Bilateral Throughout] 04/16/18 04/16/18 04/16/18 03:30 03:35 03:40 Temperature Pulse Rate 134 H 133 H Pulse Rate [ From Monitor] Respiratory 36 H 39 H Rate Blood Pressure 111/49 111/49 118/50 O2 Sat by Pulse 97 97 96 Oximetry O2 Sat by Pulse Oximetry [ Anterior Bilateral Throughout] 04/16/18 04/16/18 04/16/18 03:50 04:00 04:10 Temperature Pulse Rate 132 H 129 H 126 H Pulse Rate [ From Monitor] Respiratory 38 H 37 H 38 H Rate Blood Pressure 116/51 119/47 110/50 O2 Sat by Pulse 96 96 96 Oximetry O2 Sat by Pulse Oximetry [ Anterior Bilateral Throughout] 04/16/18 04/16/18 04/16/18 04:20 04:30 04:40 Temperature Pulse Rate 127 H 128 H 126 H Pulse Rate [ From Monitor] Respiratory 36 H 37 H 36 H Rate Blood Pressure 112/49 110/45 102/46 O2 Sat by Pulse 96 95 96 Oximetry O2 Sat by Pulse Oximetry [ Anterior Bilateral Throughout] 04/16/18 04/16/18 04/16/18 04:50 05:00 05:10 Temperature Pulse Rate 126 H 125 H 122 H Pulse Rate [ From Monitor] Respiratory 37 H 36 H 37 H Rate Blood Pressure 106/46 107/45 103/50 O2 Sat by Pulse 96 96 97 Oximetry O2 Sat by Pulse Oximetry [ Anterior Bilateral Throughout] 04/16/18 04/16/18 04/16/18 05:20 05:30 05:40 Temperature Pulse Rate 122 H 124 H 123 H Pulse Rate [ From Monitor] Respiratory 37 H 37 H 37 H Rate Blood Pressure 107/49 106/48 101/47 O2 Sat by Pulse 96 96 96 Oximetry O2 Sat by Pulse Oximetry [ Anterior Bilateral Throughout] 04/16/18 04/16/18 04/16/18 05:50 06:00 06:10 Temperature 99.1 F Pulse Rate 123 H 123 H 123 H Pulse Rate [ 142 H From Monitor] Respiratory 37 H 36 H 37 H Rate Blood Pressure 100/49 91/46 109/49 O2 Sat by Pulse 96 96 96 Oximetry O2 Sat by Pulse Oximetry [ Anterior Bilateral Throughout] 04/16/18 04/16/18 04/16/18 06:20 06:30 06:40 Temperature Pulse Rate 123 H 123 H 123 H Pulse Rate [ From Monitor] Respiratory 38 H 36 H 37 H Rate Blood Pressure 109/49 112/48 113/49 O2 Sat by Pulse 95 95 95 Oximetry O2 Sat by Pulse Oximetry [ Anterior Bilateral Throughout] 04/16/18 04/16/18 04/16/18 06:50 07:00 07:10 Temperature Pulse Rate 121 H 122 H 123 H Pulse Rate [ From Monitor] Respiratory 38 H 37 H 36 H Rate Blood Pressure 112/50 110/50 110/50 O2 Sat by Pulse 96 96 95 Oximetry O2 Sat by Pulse Oximetry [ Anterior Bilateral Throughout] 04/16/18 04/16/18 04/16/18 07:20 07:31 07:40 Temperature Pulse Rate 124 H 124 H 124 H Pulse Rate [ From Monitor] Respiratory 38 H 36 H 36 H Rate Blood Pressure 100/55 97/46 101/50 O2 Sat by Pulse 95 95 95 Oximetry O2 Sat by Pulse Oximetry [ Anterior Bilateral Throughout] 04/16/18 04/16/18 04/16/18 07:50 08:00 08:10 Temperature 100.2 F H Pulse Rate 123 H 121 H 121 H Pulse Rate [ 118 H From Monitor] Respiratory 38 H 35 H 36 H Rate Blood Pressure 102/52 108/52 113/49 O2 Sat by Pulse 95 97 96 Oximetry O2 Sat by Pulse Oximetry [ Anterior Bilateral Throughout] 04/16/18 04/16/18 04/16/18 08:20 08:30 08:40 Temperature Pulse Rate 121 H 120 H 118 H Pulse Rate [ From Monitor] Respiratory 37 H 36 H 35 H Rate Blood Pressure 110/48 106/52 109/57 O2 Sat by Pulse 96 96 97 Oximetry O2 Sat by Pulse Oximetry [ Anterior Bilateral Throughout] 04/16/18 04/16/18 04/16/18 08:50 09:00 09:10 Temperature Pulse Rate 119 H 120 H 118 H Pulse Rate [ From Monitor] Respiratory 37 H 38 H 35 H Rate Blood Pressure 106/53 102/51 104/47 O2 Sat by Pulse 96 96 96 Oximetry O2 Sat by Pulse Oximetry [ Anterior Bilateral Throughout] 04/16/18 04/16/18 04/16/18 09:20 09:30 09:40 Temperature Pulse Rate 117 H 117 H 118 H Pulse Rate [ From Monitor] Respiratory 36 H 36 H 36 H Rate Blood Pressure 103/50 100/59 115/52 O2 Sat by Pulse 96 97 97 Oximetry O2 Sat by Pulse Oximetry [ Anterior Bilateral Throughout] CBC and BMP: 04/15/18 09:25 04/16/18 06:34 ABG, PT/INR, D-dimer: ABG POC ABG pH 7.430 (7.35-7.45) 04/16/18 06:20 POC ABG pCO2 34.9 (35-45) L 04/16/18 06:20 POC ABG pO2 93 (80-105) 04/16/18 06:20 POC ABG HCO3 23.2 04/16/18 06:20 POC ABG Total CO2 24 04/16/18 06:20 POC ABG O2 Sat 98 04/16/18 06:20 Abnormal lab findings: Abnormal Labs 04/15/18 04/15/18 04/15/18 09:15 09:25 09:25 Lymph % (Auto) 8.7 L Lymph # 0.9 L Seg Neutrophils % 85.6 H Seg Neutrophils # 9.3 H POC ABG pH POC ABG pCO2 POC ABG pO2 Sodium 136 L Potassium Carbon Dioxide 15 L BUN Creatinine Glucose 133 H POC Glucose 110 H Calcium AST Total Creatine Kinase Total Protein Albumin Salicylates Acetaminophen 04/15/18 04/15/18 04/15/18 10:54 10:57 10:57 Lymph % (Auto) Lymph # Seg Neutrophils % Seg Neutrophils # POC ABG pH POC ABG pCO2 POC ABG pO2 Sodium Potassium Carbon Dioxide BUN Creatinine Glucose POC Glucose Calcium AST Total Creatine Kinase 190 H Total Protein Albumin Salicylates 104.5 H Acetaminophen < 5.0 L 04/15/18 04/15/18 04/15/18 14:16 15:45 18:17 Lymph % (Auto) Lymph # Seg Neutrophils % Seg Neutrophils # POC ABG pH 7.546 H 7.277 L POC ABG pCO2 14.8 L 54.1 H POC ABG pO2 112 H 153 H Sodium Potassium Carbon Dioxide BUN Creatinine Glucose POC Glucose Calcium AST Total Creatine Kinase Total Protein Albumin Salicylates 107.9 H Acetaminophen 04/15/18 04/15/18 04/15/18 20:38 23:55 23:55 Lymph % (Auto) Lymph # Seg Neutrophils % Seg Neutrophils # POC ABG pH POC ABG pCO2 POC ABG pO2 Sodium Potassium 3.0 L D Carbon Dioxide 18 L BUN 21 H Creatinine 1.6 H D Glucose POC Glucose 110 H Calcium 6.3 L D AST 85 H Total Creatine Kinase Total Protein 4.9 L Albumin 2.9 L Salicylates 50.3 H Acetaminophen 04/16/18 04/16/18 04/16/18 00:00 02:03 02:03 Lymph % (Auto) Lymph # Seg Neutrophils % Seg Neutrophils # POC ABG pH 7.517 H POC ABG pCO2 26.3 L POC ABG pO2 173 H Sodium Potassium 3.4 L Carbon Dioxide 17 L BUN 24 H Creatinine 1.8 H Glucose POC Glucose Calcium 6.4 L AST Total Creatine Kinase Total Protein Albumin Salicylates 52.4 H Acetaminophen 04/16/18 04/16/18 04/16/18 04:57 06:06 06:20 Lymph % (Auto) Lymph # Seg Neutrophils % Seg Neutrophils # POC ABG pH POC ABG pCO2 34.9 L POC ABG pO2 Sodium Potassium Carbon Dioxide BUN Creatinine Glucose POC Glucose 121 H 136 H Calcium AST Total Creatine Kinase Total Protein Albumin Salicylates Acetaminophen 04/16/18 04/16/18 04/16/18 06:34 06:34 07:08 Lymph % (Auto) Lymph # Seg Neutrophils % Seg Neutrophils # POC ABG pH POC ABG pCO2 POC ABG pO2 Sodium Potassium 3.2 L Carbon Dioxide BUN 29 H Creatinine 2.2 H Glucose 129 H POC Glucose 168 H Calcium 6.5 L AST Total Creatine Kinase Total Protein Albumin Salicylates 49.2 H Acetaminophen 04/16/18 08:19 Lymph % (Auto) Lymph # Seg Neutrophils % Seg Neutrophils # POC ABG pH POC ABG pCO2 POC ABG pO2 Sodium Potassium Carbon Dioxide BUN Creatinine Glucose POC Glucose 121 H Calcium AST Total Creatine Kinase Total Protein Albumin Salicylates Acetaminophen
--- NOTE | 2018-04-16 10:10 | Consultation ---
History of Present Illness Consult date: 04/16/18 Requesting physician: JENNIFER FINE Reason for consult: other (acute encephalopathy, salicylate poisoning, acute metabolic acidosis, THOMAS) History of present illness: History per Admitting physician, patient is intubated and cannot give a history. 27 YO Male with Bipolar Disorder, Seizure Disorder, Anxiety presents to ED for evaluation. Pt is confused, and unresponsive at time of exam. Pt is unable to provide history. Pt mother is at bedside during exam and provides history. As per mother, the patient has been under the care of a psychiatrist for the past 5 months for Panic Attacks. EMS was notified after patient was found confused, and wandering in parking lot at [facility]. Pt was confused, and diaphoretic. Pt transported to ED for further care and evaluation. Pt seen and evaluated in ED and found to have Encephalopathy, Salicylate Toxicity,Acidosis, and Acute Respiratory Failure. Pt underwent emergent dialysis catheter placement. Pt admitted to ICU. Nephrology consulted in ED for urgent dialysis. Pulmonary consulted in ED. Pt intubated, sedated and placed on vent support. Poison control notified in ED. Patient was seen and examined. Vitals, labs, medications, chart and imaging reviewed. Critically ill intubated, on multiple infusions, encephaloapthic in the ICU Discussed during bedside ICU-IDT rounds with mother in attendance. Briefly, 27 year old man with bipolar disorder, intubated for salicylate toxicity, s/p emergent HD. Past History Past Medical History: other (bipolar, seizure, anxiety) Past Surgical History: No surgical history, Other (reviewed) Social history: single. denies: smoking, alcohol abuse, prescription drug abuse Medications and Allergies Allergies Allergy/AdvReac Type Severity Reaction Status Date / Time No Known Allergies Allergy Unverified 04/15/18 05:37 Home Medications Medication Instructions Recorded Confirmed Last Taken Type Invega Sustenna IM QMONTH 04/16/18 04/09/18 History Klonopin 1 mg PO TID 04/16/18 04/16/18 04/15/18 08:00 History Active Meds: Active Medications Albuterol (Proventil) 2.5 mg IH Q3HRT PRN PRN Reason: Shortness Of Breath Dextrose (D50w (25gm) Syringe) 50 ml IV PRN PRN PRN Reason: Hypoglycemia Last Admin: 04/16/18 08:24 Dose: 50 ml Famotidine (Pepcid) 20 mg IV DAILY ANASTASIA Last Admin: 04/16/18 09:01 Dose: 20 mg Sodium Chloride (Nacl 0.9%) 100 mls @ 999 mls/hr IV CECE PRN PRN Reason: Hypotension Dopamine HCl/Dextrose (Intropin Drip 800 Mg/D5w 250 Ml) 800 mg in 250 mls @ 4.031 mls/hr IV TITR ANASTASIA; Protocol Epinephrine 8 mg/ Sodium (Chloride) 250 mls @ 3.75 mls/hr IV TITR ANASTASIA; Protocol Last Titration: 04/16/18 03:45 Dose: 0 mcg/min, 0 mls/hr Vasopressin 20 unit/ Sodium (Chloride) 101 mls @ 9.09 mls/hr IV TITR ANASTASIA; Protocol Last Admin: 04/16/18 06:05 Dose: 0.03 units/min, 9.09 mls/hr Norepinephrine 8 mg/ Sodium (Chloride) 250 mls @ 3.75 mls/hr IV TITR ANATSASIA; Protocol Last Titration: 04/16/18 08:57 Dose: 28 mcg/min, 52.5 mls/hr Propofol (Diprivan 10 Mg/Ml) 1,000 mg in 100 mls @ 3.225 mls/hr IV TITR ANASTASIA; Protocol Last Titration: 04/16/18 09:42 Dose: Infused Sodium Bicarbonate 150 meq/ (Dextrose) 1,150 mls @ 150 mls/hr IV DIRECT ANASTASIA Last Infusion: 04/16/18 06:40 Dose: 150 mls/hr Piperacillin Sod/Tazobactam Sod (Zosyn/Ns 4.5gm/100ml) 4.5 gm in 100 mls @ 200 mls/hr IV Q8H ANASTASIA; Protocol Last Admin: 04/16/18 09:14 Dose: 200 mls/hr Sodium Chloride (Nacl 0.9% 1000 Ml) 1,000 mls @ 150 mls/hr IV DIRECT ANASTASIA Last Admin: 04/16/18 08:54 Dose: 150 mls/hr Magnesium Sulfate (Magnesium Sulfate 2gm/50ml) 2 gm in 50 mls @ 25 mls/hr IV ONCE ONE Stop: 04/16/18 11:16 Sodium Chloride (Sodium Chloride Flush Syringe 10 Ml) 10 ml IV BID ANASTASIA Last Admin: 09/20/18 09:05 Dose: 10 ml Sodium Chloride (Sodium Chloride Flush Syringe 10 Ml) 10 ml IV PRN PRN PRN Reason: LINE FLUSH Review of Systems ROS unobtainable: due to endotracheal tube, due to mental status Physical Examination Vital signs: Vital Signs Temp Pulse Resp BP Pulse Ox 98.9 F 133 H 38 H 130/69 97 04/15/18 09:16 04/15/18 09:16 04/15/18 09:16 04/15/18 09:16 04/15/18 09:16 General appearance: other (tachypnic, ETT to MVS, unresponsive) Eyes: non-icteric ENT: oropharynx dry Neck: supple, no lymphadenopathy, no JVD Effort: mildly labored Ascultation: Bilateral: diminished breath sounds, rhonchi Cardiovascular: other (Tachycardia, S1,S2, no murmurs, gallops or rubs) Gastrointestinal: normoactive bowel sounds, soft, non-tender, non-distended Integumentary: normal, other (Femoral vascath and femoral CVC) Extremities: no cyanosis, no edema, pulses normal, no ischemia or petechiae Musculoskeletal: no deformities unable to assess other (unable to assess) Results - Laboratory Findings CBC and BMP: 04/15/18 09:25 04/16/18 22:50 ABG POC ABG pH 7.430 (7.35-7.45) 04/16/18 06:20 POC ABG pCO2 34.9 (35-45) L 04/16/18 06:20 POC ABG pO2 93 (80-105) 04/16/18 06:20 POC ABG HCO3 23.2 04/16/18 06:20 POC ABG Total CO2 24 04/16/18 06:20 POC ABG O2 Sat 98 04/16/18 06:20 Abnormal lab findings: Abnormal Labs 04/15/18 04/15/18 04/15/18 09:15 09:25 09:25 Lymph % (Auto) 8.7 L Lymph # 0.9 L Seg Neutrophils % 85.6 H Seg Neutrophils # 9.3 H POC ABG pH POC ABG pCO2 POC ABG pO2 Sodium 136 L Potassium Carbon Dioxide 15 L BUN Creatinine Glucose 133 H POC Glucose 110 H Calcium AST Total Creatine Kinase Total Protein Albumin Salicylates Acetaminophen 04/15/18 04/15/18 04/15/18 10:54 10:57 10:57 Lymph % (Auto) Lymph # Seg Neutrophils % Seg Neutrophils # POC ABG pH POC ABG pCO2 POC ABG pO2 Sodium Potassium Carbon Dioxide BUN Creatinine Glucose POC Glucose Calcium AST Total Creatine Kinase 190 H Total Protein Albumin Salicylates 104.5 H Acetaminophen < 5.0 L 04/15/18 04/15/18 04/15/18 14:16 15:45 18:17 Lymph % (Auto) Lymph # Seg Neutrophils % Seg Neutrophils # POC ABG pH 7.546 H 7.277 L POC ABG pCO2 14.8 L 54.1 H POC ABG pO2 112 H 153 H Sodium Potassium Carbon Dioxide BUN Creatinine Glucose POC Glucose Calcium AST Total Creatine Kinase Total Protein Albumin Salicylates 107.9 H Acetaminophen 04/15/18 04/15/18 04/15/18 20:38 23:55 23:55 Lymph % (Auto) Lymph # Seg Neutrophils % Seg Neutrophils # POC ABG pH POC ABG pCO2 POC ABG pO2 Sodium Potassium 3.0 L D Carbon Dioxide 18 L BUN 21 H Creatinine 1.6 H D Glucose POC Glucose 110 H Calcium 6.3 L D AST 85 H Total Creatine Kinase Total Protein 4.9 L Albumin 2.9 L Salicylates 50.3 H Acetaminophen 04/16/18 04/16/18 04/16/18 00:00 02:03 02:03 Lymph % (Auto) Lymph # Seg Neutrophils % Seg Neutrophils # POC ABG pH 7.517 H POC ABG pCO2 26.3 L POC ABG pO2 173 H Sodium Potassium 3.4 L Carbon Dioxide 17 L BUN 24 H Creatinine 1.8 H Glucose POC Glucose Calcium 6.4 L AST Total Creatine Kinase Total Protein Albumin Salicylates 52.4 H Acetaminophen 04/16/18 04/16/18 04/16/18 04:57 06:06 06:20 Lymph % (Auto) Lymph # Seg Neutrophils % Seg Neutrophils # POC ABG pH POC ABG pCO2 34.9 L POC ABG pO2 Sodium Potassium Carbon Dioxide BUN Creatinine Glucose POC Glucose 121 H 136 H Calcium AST Total Creatine Kinase Total Protein Albumin Salicylates Acetaminophen 04/16/18 04/16/18 04/16/18 06:34 06:34 07:08 Lymph % (Auto) Lymph # Seg Neutrophils % Seg Neutrophils # POC ABG pH POC ABG pCO2 POC ABG pO2 Sodium Potassium 3.2 L Carbon Dioxide BUN 29 H Creatinine 2.2 H Glucose 129 H POC Glucose 168 H Calcium 6.5 L AST Total Creatine Kinase Total Protein Albumin Salicylates 49.2 H Acetaminophen 04/16/18 08:19 Lymph % (Auto) Lymph # Seg Neutrophils % Seg Neutrophils # POC ABG pH POC ABG pCO2 POC ABG pO2 Sodium Potassium Carbon Dioxide BUN Creatinine Glucose POC Glucose 121 H Calcium AST Total Creatine Kinase Total Protein Albumin Salicylates Acetaminophen - Diagnostic Findings Chest x-ray: image reviewed (Bilateral alveolar edema, ETT in good position) Assessment and Plan -Acute hypoxemic respiratory failure -Salicylate poisoning -Metabolic acidosis -Acute encephalopathy -Acute renal failure -SIRS, does not appear to be sepsis related -h/o Bipolar disorder -Unclear as to intentional OD -Obesity -VAP bundle addressed -Adjust minute ventilation to keep pH 7.5, once salicylate levels normalize will resume lung protective strategies -Continue with alkalization of the urine -Serial ABGs, keep Ph 7.5 -Continue to monitor renal function -Serial CMPs, monitor closely for hepatotoxicity -All critical care bundles addressed -Turner catheter for accurate intake and output monitoring, in this critically ill patient with acute renal failure -CXRs prn -Accucheck, keep blood glucose 150-200 -Avoid hypoglycemia, hourly accuchecks -Hourly salicylate monitoring -Bicarbonate infusion -VTE prophylaxis -Stress ulcer prophylaxis -Follow blood cultures, sputum and urine cultures -Discontinue antibiotics -RD for tube feeding recommendations for nutritional support -Vasopressor support for MAP< 65 -Keep on full MVS today, will initiate SBTs in the morning -Agitation management -Replete electrolytes as indicated FULL CODE STATUS Updated mother at the bedside and all her questions were answered. The high probability of a clinically significant, sudden or life threatening deterioration of the [respiratory, renal, hemodynamic and neurological] system(s ) required my full and direct attention, intervention and personal management. The aggregate critical care time was [75] minutes. This time is in addition to time spent performing reported procedures but includes the following: [x] Data Review and interpretation [x] Patient assessment and monitoring of vital signs [x] Documentation [x] Medication orders and management
[2018-04-16] MEDS ORDERED: HEPARIN 10,000 UNITS/10 ML IV PRN (10:42)
[2018-04-16] MEDS ORDERED: NACL 0.9% 100 ML IV PRN (10:42)
[2018-04-16] MEDS ORDERED: NACL 0.9% 1000 ML 1,000 ML IV ONE (10:44)
[2018-04-16 10:45] LABS: Hepatitis B Core IgM Non-Reactive (NonReactive); Hepatitis C Virus Antibody Non-Reactive (NonReactive)
[2018-04-16 11:34] LABS: Calcium 5.8 mg/dL (8.4-10.2)
--- NOTE | 2018-04-16 11:57 | Consultation ---
History of Present Illness - Reason for Consult Consult date: 04/16/18 Reason for consult: Mental Health Evaluation Requesting physician: MARSHAL SARAVIA - Chief Complaint Chief complaint: "The patient is intubated" - History of Present Psychiatric Illness 27-year-old male who presents after being brought in by EMS after patient was picked up at [facility]. The patient initially presented with a complaint of anxiety. He left the ER and went over to [facility], called 911, and EMS stated that he was sweating. Today the patient is intubated. The patient has elevated Salicylate levels (overdose). Per collateral information from his mother Ms Chelsea Nguyen who was at the bedside, she stated that her son has a hx of Bipolar DO. She denies any previous suicide attempts by her son. Per the patient's assign nurse, he stated that the patient maybe extubated in 24 hours. Medications and Allergies Allergies Allergy/AdvReac Type Severity Reaction Status Date / Time No Known Allergies Allergy Unverified 04/15/18 05:37 Active Meds: Active Medications Albuterol (Proventil) 2.5 mg IH Q3HRT PRN PRN Reason: Shortness Of Breath Dextrose (D50w (25gm) Syringe) 50 ml IV PRN PRN PRN Reason: Hypoglycemia Last Admin: 04/16/18 10:16 Dose: 50 ml Famotidine (Pepcid) 20 mg IV DAILY ANASTASIA Last Admin: 04/16/18 09:01 Dose: 20 mg Heparin Sodium (Porcine) (Heparin) 5,000 unit SUB-Q Q8HR ANASTASIA Heparin Sodium (Porcine) (Heparin 10,000 Units/10 Ml) 1,000 unit IV CECE PRN PRN Reason: hemodialysis Sodium Chloride (Nacl 0.9%) 100 mls @ 999 mls/hr IV CECE PRN PRN Reason: Hypotension Dopamine HCl/Dextrose (Intropin Drip 800 Mg/D5w 250 Ml) 800 mg in 250 mls @ 4.031 mls/hr IV TITR ANASTASIA; Protocol Epinephrine 8 mg/ Sodium (Chloride) 250 mls @ 3.75 mls/hr IV TITR ANASTASIA; Protocol Last Titration: 04/16/18 03:45 Dose: 0 mcg/min, 0 mls/hr Vasopressin 20 unit/ Sodium (Chloride) 101 mls @ 9.09 mls/hr IV TITR ANASTASIA; Protocol Last Admin: 04/16/18 06:05 Dose: 0.03 units/min, 9.09 mls/hr Norepinephrine 8 mg/ Sodium (Chloride) 250 mls @ 3.75 mls/hr IV TITR ANASTASIA; Protocol Last Titration: 04/16/18 11:55 Dose: 24 mcg/min, 45 mls/hr Sodium Bicarbonate 150 meq/ (Dextrose) 1,150 mls @ 150 mls/hr IV DIRECT ANASTASIA Last Admin: 04/16/18 11:51 Dose: 150 mls/hr Sodium Chloride (Nacl 0.9% 1000 Ml) 1,000 mls @ 150 mls/hr IV DIRECT ANASTASIA Last Admin: 04/16/18 10:58 Dose: 150 mls/hr Magnesium Sulfate (Magnesium Sulfate 2gm/50ml) 2 gm in 50 mls @ 25 mls/hr IV ONCE ONE Stop: 04/16/18 13:59 Last Admin: 04/16/18 11:46 Dose: 25 mls/hr Fentanyl Citrate (Fentanyl Drip Premix) 2,000 mcg in 100 mls @ 5.375 mls/hr IV TITR ANASTASIA; Protocol Sodium Chloride (Nacl 0.9%) 100 mls @ 999 mls/hr IV CECE PRN PRN Reason: Hypotension Sodium Chloride (Sodium Chloride Flush Syringe 10 Ml) 10 ml IV BID ANASTASIA Last Admin: 04/16/18 09:05 Dose: 10 ml Sodium Chloride (Sodium Chloride Flush Syringe 10 Ml) 10 ml IV PRN PRN PRN Reason: LINE FLUSH Past psychiatric history - Past Medical History Past Medical History: other (Unable to obtain) Past Surgical History: Other (Unable to obtain) - past Psychiatric treatment and history psychiatric treatment history: Per his mother Ms Chelsea Nguyen, she stated that the patient has a hx of Bipolar DO. She denies a fam psy hx. - Social History Social history: lives with family (Per his mother Ms Chelsea Nguyen) Mental Status Exam - Vital signs Last Vital Signs Temp 100.2 F H 04/16/18 08:00 Pulse 116 H 04/16/18 11:50 Resp 37 H 04/16/18 11:50 BP 122/65 04/16/18 11:50 Pulse Ox 97 04/16/18 11:50 - Exam Narrative exam: Unable to complete the MSE because of the patient's condition. Results Result Diagrams: 04/15/18 09:25 04/16/18 10:42 Abnormal lab results 04/15/18 04/15/18 04/15/18 Range/Units 14:16 15:45 18:17 POC ABG pH 7.546 H 7.277 L (7.35-7.45) POC ABG pCO2 14.8 L 54.1 H (35-45) POC ABG pO2 112 H 153 H (80-105) Potassium (3.6-5.0) mmol/L Carbon Dioxide (22-30) mmol/L BUN (9-20) mg/dL Creatinine (0.8-1.5) mg/dL Glucose (75-100) mg/dL POC Glucose (70-105) Calcium (8.4-10.2) mg/dL Magnesium (1.7-2.3) mg/dL AST (5-40) units/L Total Protein (6.3-8.2) g/dL Albumin (3.9-5) g/dL Salicylates 107.9 H (2.8-20.0) mg/dL 04/15/18 04/15/18 04/15/18 Range/Units 20:38 23:55 23:55 POC ABG pH (7.35-7.45) POC ABG pCO2 (35-45) POC ABG pO2 (80-105) Potassium 3.0 L D (3.6-5.0) mmol/L Carbon Dioxide 18 L (22-30) mmol/L BUN 21 H (9-20) mg/dL Creatinine 1.6 H D (0.8-1.5) mg/dL Glucose (75-100) mg/dL POC Glucose 110 H (70-105) Calcium 6.3 L D (8.4-10.2) mg/dL Magnesium (1.7-2.3) mg/dL AST 85 H (5-40) units/L Total Protein 4.9 L (6.3-8.2) g/dL Albumin 2.9 L (3.9-5) g/dL Salicylates 50.3 H (2.8-20.0) mg/dL 04/16/18 04/16/18 04/16/18 Range/Units 00:00 02:03 02:03 POC ABG pH 7.517 H (7.35-7.45) POC ABG pCO2 26.3 L (35-45) POC ABG pO2 173 H (80-105) Potassium 3.4 L (3.6-5.0) mmol/L Carbon Dioxide 17 L (22-30) mmol/L BUN 24 H (9-20) mg/dL Creatinine 1.8 H (0.8-1.5) mg/dL Glucose (75-100) mg/dL POC Glucose (70-105) Calcium 6.4 L (8.4-10.2) mg/dL Magnesium (1.7-2.3) mg/dL AST (5-40) units/L Total Protein (6.3-8.2) g/dL Albumin (3.9-5) g/dL Salicylates 52.4 H (2.8-20.0) mg/dL 04/16/18 04/16/18 04/16/18 Range/Units 04:57 06:06 06:20 POC ABG pH (7.35-7.45) POC ABG pCO2 34.9 L (35-45) POC ABG pO2 (80-105) Potassium (3.6-5.0) mmol/L Carbon Dioxide (22-30) mmol/L BUN (9-20) mg/dL Creatinine (0.8-1.5) mg/dL Glucose (75-100) mg/dL POC Glucose 121 H 136 H (70-105) Calcium (8.4-10.2) mg/dL Magnesium (1.7-2.3) mg/dL AST (5-40) units/L Total Protein (6.3-8.2) g/dL Albumin (3.9-5) g/dL Salicylates (2.8-20.0) mg/dL 04/16/18 04/16/18 04/16/18 Range/Units 06:34 06:34 07:08 POC ABG pH (7.35-7.45) POC ABG pCO2 (35-45) POC ABG pO2 (80-105) Potassium 3.2 L (3.6-5.0) mmol/L Carbon Dioxide (22-30) mmol/L BUN 29 H (9-20) mg/dL Creatinine 2.2 H (0.8-1.5) mg/dL Glucose 129 H (75-100) mg/dL POC Glucose 168 H (70-105) Calcium 6.5 L (8.4-10.2) mg/dL Magnesium (1.7-2.3) mg/dL AST (5-40) units/L Total Protein (6.3-8.2) g/dL Albumin (3.9-5) g/dL Salicylates 49.2 H (2.8-20.0) mg/dL 04/16/18 04/16/18 04/16/18 Range/Units 08:19 10:11 10:42 POC ABG pH (7.35-7.45) POC ABG pCO2 (35-45) POC ABG pO2 (80-105) Potassium 2.8 L* (3.6-5.0) mmol/L Carbon Dioxide (22-30) mmol/L BUN 29 H (9-20) mg/dL Creatinine 2.1 H (0.8-1.5) mg/dL Glucose 171 H (75-100) mg/dL POC Glucose 121 H 133 H (70-105) Calcium 5.8 L* (8.4-10.2) mg/dL Magnesium (1.7-2.3) mg/dL AST (5-40) units/L Total Protein (6.3-8.2) g/dL Albumin (3.9-5) g/dL Salicylates (2.8-20.0) mg/dL 04/16/18 04/16/18 Range/Units 10:42 10:42 POC ABG pH (7.35-7.45) POC ABG pCO2 (35-45) POC ABG pO2 (80-105) Potassium (3.6-5.0) mmol/L Carbon Dioxide (22-30) mmol/L BUN (9-20) mg/dL Creatinine (0.8-1.5) mg/dL Glucose (75-100) mg/dL POC Glucose (70-105) Calcium (8.4-10.2) mg/dL Magnesium 1.40 L (1.7-2.3) mg/dL AST (5-40) units/L Total Protein (6.3-8.2) g/dL Albumin (3.9-5) g/dL Salicylates 45.2 H (2.8-20.0) mg/dL All other labs normal. Assessment and Plan Assessment and plan: Impression: Hx of Bipolar DO per collateral information from his mother Chelsea Nguyen. Elevated Salicylate levels (overdose). Recommendation/Plan: Continue 1013 and assess the patient in 24 hours if extubated.
[2018-04-16] MEDS ORDERED: MAGNESIUM SULFATE 2GM/50ML 2 GM/50 ML BAG IV ONE (12:00)
[2018-04-16] MEDS ORDERED: SIMPLE SYRUP FEEDTUBE PRN ×2 (13:36)
[2018-04-16] MEDS ORDERED: PANCREAZE DR 10,500 UNIT FEEDTUBE PRN (13:36)
[2018-04-16] MEDS ORDERED: SODIUM BICARBONATE FEEDTUBE PRN (13:36)
[2018-04-16] MEDS: HEPARIN SUB-Q SCH ×2 (14:00→21:40)
[2018-04-16 14:42] LABS: Hepatitis B Surface Antigen Non-Reactive (Negative)
[2018-04-16] MEDS ORDERED: CALCIUM GLUCONATE 1,000 MG in NACL 0.9% 100 ML IV ONE (15:00)
[2018-04-16] MEDS: SODIUM CHLORIDE FLUSH SYRINGE 10 ML IV PRN (18:00)
[2018-04-16] MEDS: fentaNYL DRIP Premix 2,000 MCG/100 ML BAG IV SCH (19:05)
[2018-04-16 19:53] LABS: BUN/Creatinine Ratio 12; Blood Urea Nitrogen 12 mg/dL (9-20); Hemolysis Index 5
[2018-04-17] MEDS: D50W (25GM) Syringe IV PRN ×21 (00:04→23:04)
[2018-04-17] MEDS: SODIUM CHLORIDE FLUSH SYRINGE 10 ML IV SCH ×2 (01:34→09:36)
[2018-04-17 02:25] LABS: BUN/Creatinine Ratio 10; Blood Urea Nitrogen 12 mg/dL (9-20); Calcium 7.6 mg/dL (8.4-10.2); Hemolysis Index 8
[2018-04-17] MEDS ORDERED: POTASSIUM CHLORIDE FEEDTUBE ONE ×2 (02:51→11:30)
[2018-04-17] MEDS: SODIUM BICARBONATE 150 MEQ in D5W 1,000 ML IV SCH ×2 (03:10→10:13)
[2018-04-17 03:16] LABS: BUN/Creatinine Ratio 9; Blood Urea Nitrogen 12 mg/dL (9-20); Calcium 7.1 mg/dL (8.4-10.2); Hemolysis Index 5
[2018-04-17] MEDS: NACL 0.9% 1000 ML 1,000 ML IV SCH ×2 (05:00→19:07)
[2018-04-17] MEDS: HEPARIN SUB-Q SCH ×2 (05:50→13:54)
[2018-04-17] MEDS: fentaNYL DRIP Premix 2,000 MCG/100 ML BAG IV SCH (06:02)
[2018-04-17 07:26] LABS: BUN/Creatinine Ratio 9; Blood Urea Nitrogen 11 mg/dL (9-20); Calcium 7.5 mg/dL (8.4-10.2); Hemolysis Index 6
--- NOTE | 2018-04-17 08:18 | Progress Note ---
Assessment and Plan Acute hypoxemic respiratory failure Salicylate poisoning Metabolic acidosis Acute encephalopathy Acute renal failure SIRS, does not appear to be sepsis related h/o Bipolar disorder Unclear as to intentional OD Obesity Hypokelemia - hold tube feeds - extubate - replaced potassium - discontinue groin CVL - Avoid hypoglycemia, continue hourly accuchecks, keep blood glucose 150-200 - ASA levels to q4h - discontinue bicarbonate infusion - PT/OT evaluate and treat - VAP bundle addressed - discontinue with alkalization of the urine - Stop serial ABG's - Continue to monitor renal function - All critical care bundles addressed - continue duong catheter for accurate intake and output monitoring, in this critically ill patient with acute renal failure - CXRs prn at this point - VTE prophylaxis - Stress ulcer prophylaxis - Follow blood cultures, sputum and urine cultures - Discontinued antibiotics - Agitation management - Replete electrolytes as indicated ....... FULL CODE STATUS Updated mother at the bedside and all her questions were answered. The high probability of a clinically significant, sudden or life threatening deterioration of the [respiratory, renal, hemodynamic and neurological] system(s ) required my full and direct attention, intervention and personal management. The aggregate critical care time was [40] minutes. This time is in addition to time spent performing reported procedures but includes the following: [x] Data Review and interpretation [x] Patient assessment and monitoring of vital signs [x] Documentation [x] Medication orders and management Subjective Date of service: 04/17/18 Principal diagnosis: Acute hypoxemic respiratory failure; Salicylate poisoning ; THOMAS Interval history: Patient is seen today for: Acute hypoxemic respiratory failure; Salicylate poisoning; Metabolic acidosis; Acute encephalopathy; Acute renal failure Seen and examined at bedside; 24hour events reviewed; nursing and respiratory care staff consulted; no adverse overnight events reported to me; on PSV trial and tolerating well; denies acute chest pains; mother in room; tolerating tube feeds; making urine; s/p HD/UF yesterday; ASA level now WNL; No N/V/F/C Objective Vital Signs - 12hr 04/16/18 04/16/18 04/16/18 20:20 20:31 20:40 Temperature Pulse Rate 98 H 100 H 112 H Pulse Rate [ From Monitor] Respiratory 19 14 21 Rate Blood Pressure 108/52 108/52 113/61 O2 Sat by Pulse 100 96 98 Oximetry 04/16/18 04/16/18 04/16/18 20:51 21:00 21:11 Temperature Pulse Rate 109 H 95 H 97 H Pulse Rate [ From Monitor] Respiratory 19 13 28 H Rate Blood Pressure 113/61 105/53 105/53 O2 Sat by Pulse 99 97 95 Oximetry 04/16/18 04/16/18 04/16/18 21:20 21:31 21:40 Temperature Pulse Rate 98 H 108 H 97 H Pulse Rate [ From Monitor] Respiratory 16 16 23 Rate Blood Pressure 107/55 113/61 102/49 O2 Sat by Pulse 96 96 95 Oximetry 04/16/18 04/16/18 04/16/18 21:51 22:00 22:11 Temperature Pulse Rate 100 H 93 H 97 H Pulse Rate [ 121 H From Monitor] Respiratory 24 21 19 Rate Blood Pressure 102/49 111/53 111/53 O2 Sat by Pulse 96 96 96 Oximetry 04/16/18 04/16/18 04/16/18 22:20 22:31 22:40 Temperature Pulse Rate 98 H 98 H 96 H Pulse Rate [ From Monitor] Respiratory 22 22 26 H Rate Blood Pressure 106/59 106/59 109/55 O2 Sat by Pulse 96 96 96 Oximetry 04/16/18 04/16/18 04/16/18 22:51 22:53 23:00 Temperature Pulse Rate 102 H 100 H Pulse Rate [ From Monitor] Respiratory 14 13 Rate Blood Pressure 109/55 109/55 117/60 O2 Sat by Pulse 97 97 97 Oximetry 04/16/18 04/16/18 04/16/18 23:11 23:20 23:31 Temperature Pulse Rate 98 H 96 H Pulse Rate [ From Monitor] Respiratory 18 24 Rate Blood Pressure 117/60 106/56 106/56 O2 Sat by Pulse 97 96 98 Oximetry 04/16/18 04/16/18 04/17/18 23:41 23:51 00:00 Temperature 98.1 F Pulse Rate 113 H Pulse Rate [ 126 H From Monitor] Respiratory 21 Rate Blood Pressure 132/31 132/31 108/76 O2 Sat by Pulse 100 98 97 Oximetry 04/17/18 04/17/18 04/17/18 00:11 00:20 00:31 Temperature Pulse Rate 121 H 101 H 100 H Pulse Rate [ From Monitor] Respiratory 23 16 15 Rate Blood Pressure 108/76 106/49 106/49 O2 Sat by Pulse 95 92 94 Oximetry 04/17/18 04/17/18 04/17/18 00:38 00:40 00:51 Temperature Pulse Rate 99 H 100 H Pulse Rate [ From Monitor] Respiratory 15 13 Rate Blood Pressure 106/49 106/50 106/50 O2 Sat by Pulse 96 94 95 Oximetry 04/17/18 04/17/18 04/17/18 01:00 01:11 01:20 Temperature Pulse Rate 97 H 96 H 97 H Pulse Rate [ From Monitor] Respiratory 15 15 11 L Rate Blood Pressure 114/54 114/54 105/53 O2 Sat by Pulse 95 95 95 Oximetry 04/17/18 04/17/18 04/17/18 01:31 01:40 01:51 Temperature Pulse Rate 95 H 95 H 95 H Pulse Rate [ From Monitor] Respiratory 14 17 12 Rate Blood Pressure 105/53 109/55 109/55 O2 Sat by Pulse 95 95 97 Oximetry 04/17/18 04/17/18 04/17/18 02:00 02:11 02:20 Temperature Pulse Rate 95 H 93 H 91 H Pulse Rate [ 94 H From Monitor] Respiratory 11 L 14 11 L Rate Blood Pressure 114/56 114/56 107/58 O2 Sat by Pulse 97 97 97 Oximetry 04/17/18 04/17/18 04/17/18 02:30 02:40 02:51 Temperature Pulse Rate 96 H 94 H 98 H Pulse Rate [ From Monitor] Respiratory 14 21 20 Rate Blood Pressure 107/58 113/70 113/70 O2 Sat by Pulse 97 98 100 Oximetry 04/17/18 04/17/18 04/17/18 03:00 03:11 03:20 Temperature Pulse Rate 96 H 99 H 100 H Pulse Rate [ From Monitor] Respiratory 20 12 14 Rate Blood Pressure 127/78 113/70 133/74 O2 Sat by Pulse 99 100 99 Oximetry 04/17/18 04/17/18 04/17/18 03:31 03:40 03:51 Temperature Pulse Rate 102 H 97 H 98 H Pulse Rate [ From Monitor] Respiratory 11 L 14 9 L Rate Blood Pressure 133/74 124/78 124/78 O2 Sat by Pulse 98 98 97 Oximetry 04/17/18 04/17/18 04/17/18 04:00 04:11 04:20 Temperature Pulse Rate 97 H 101 H 104 H Pulse Rate [ 131 H From Monitor] Respiratory 15 13 12 Rate Blood Pressure 122/67 122/67 122/73 O2 Sat by Pulse 98 95 98 Oximetry 04/17/18 04/17/18 04/17/18 04:31 04:36 04:40 Temperature Pulse Rate 126 H 126 H Pulse Rate [ From Monitor] Respiratory 19 17 Rate Blood Pressure 122/73 122/73 137/89 O2 Sat by Pulse 100 97 98 Oximetry 04/17/18 04/17/18 04/17/18 04:51 05:00 05:11 Temperature Pulse Rate 129 H 124 H 131 H Pulse Rate [ From Monitor] Respiratory 22 18 16 Rate Blood Pressure 137/89 137/93 137/93 O2 Sat by Pulse 98 98 97 Oximetry 04/17/18 04/17/18 04/17/18 05:20 05:31 05:40 Temperature Pulse Rate 118 H 107 H 116 H Pulse Rate [ From Monitor] Respiratory 10 L 11 L 12 Rate Blood Pressure 116/67 116/67 113/67 O2 Sat by Pulse 93 93 95 Oximetry 04/17/18 04/17/18 04/17/18 05:41 05:51 06:00 Temperature Pulse Rate 116 H 115 H 105 H Pulse Rate [ 129 H From Monitor] Respiratory 17 9 L Rate Blood Pressure 113/67 113/67 112/54 O2 Sat by Pulse 115 H 98 97 Oximetry 04/17/18 04/17/18 04/17/18 06:11 06:20 06:31 Temperature Pulse Rate 129 H 118 H 113 H Pulse Rate [ From Monitor] Respiratory 20 12 18 Rate Blood Pressure 112/54 121/61 121/61 O2 Sat by Pulse 100 97 95 Oximetry 04/17/18 04/17/18 04/17/18 06:41 06:51 07:00 Temperature Pulse Rate 131 H 120 H 111 H Pulse Rate [ From Monitor] Respiratory 19 18 20 Rate Blood Pressure 121/61 116/88 109/70 O2 Sat by Pulse 99 99 96 Oximetry 04/17/18 04/17/18 04/17/18 07:11 07:20 07:31 Temperature Pulse Rate 109 H 107 H 105 H Pulse Rate [ From Monitor] Respiratory 12 11 L 16 Rate Blood Pressure 116/88 113/65 113/65 O2 Sat by Pulse 97 97 96 Oximetry 04/17/18 04/17/18 04/17/18 07:40 07:51 08:00 Temperature 98.1 F Pulse Rate 104 H 108 H 104 H Pulse Rate [ From Monitor] Respiratory 16 14 19 Rate Blood Pressure 122/61 119/65 113/74 O2 Sat by Pulse 97 98 98 Oximetry Constitutional: other (young obese AAM, normocephalic and atraumatic without increased respiratory effort) Eyes: non-icteric ENT: oropharynx moist, other (ETT 23 cm RICK) Neck: supple, no lymphadenopathy, no JVD Effort: mildly labored Ascultation: Bilateral: diminished breath sounds, rhonchi (scant) Percussion: Bilateral: not dull Cardiovascular: regular rate and rhythm, other (S1,S2, no murmurs, gallops or rubs) Gastrointestinal: normoactive bowel sounds, soft, non-tender, non-distended, other (No palpable HSM) Integumentary: normal, other (Femoral vascath and femoral CVC) Extremities: no cyanosis, no edema, pulses normal, no ischemia or petechiae Neurologic: non-focal exam (grossly), pupils equal and round, CN II-XII normal, motor strength normal and Psychiatric: other (deppressed) CBC and BMP: 04/15/18 09:25 04/17/18 04:37 ABG, PT/INR, D-dimer: ABG POC ABG pH 7.443 (7.35-7.45) 04/17/18 05:42 POC ABG pCO2 48.3 (35-45) H 04/17/18 05:42 POC ABG pO2 68 (80-105) L 04/17/18 05:42 POC ABG HCO3 33.0 04/17/18 05:42 POC ABG Total CO2 34 04/17/18 05:42 POC ABG O2 Sat 94 04/17/18 05:42 Abnormal lab findings: Abnormal Labs 04/15/18 04/15/18 04/15/18 09:15 09:25 09:25 Lymph % (Auto) 8.7 L Lymph # 0.9 L Seg Neutrophils % 85.6 H Seg Neutrophils # 9.3 H POC ABG pH POC ABG pCO2 POC ABG pO2 Sodium 136 L Potassium Carbon Dioxide 15 L BUN Creatinine Glucose 133 H POC Glucose 110 H Calcium Magnesium AST Lactate Dehydrogenase Total Creatine Kinase Total Protein Albumin Salicylates Acetaminophen 04/15/18 04/15/18 04/15/18 10:54 10:57 10:57 Lymph % (Auto) Lymph # Seg Neutrophils % Seg Neutrophils # POC ABG pH POC ABG pCO2 POC ABG pO2 Sodium Potassium Carbon Dioxide BUN Creatinine Glucose POC Glucose Calcium Magnesium AST Lactate Dehydrogenase Total Creatine Kinase 190 H Total Protein Albumin Salicylates 104.5 H Acetaminophen < 5.0 L 04/15/18 04/15/18 04/15/18 14:16 15:45 18:17 Lymph % (Auto) Lymph # Seg Neutrophils % Seg Neutrophils # POC ABG pH 7.546 H 7.277 L POC ABG pCO2 14.8 L 54.1 H POC ABG pO2 112 H 153 H Sodium Potassium Carbon Dioxide BUN Creatinine Glucose POC Glucose Calcium Magnesium AST Lactate Dehydrogenase Total Creatine Kinase Total Protein Albumin Salicylates 107.9 H Acetaminophen 04/15/18 04/15/18 04/15/18 20:38 23:55 23:55 Lymph % (Auto) Lymph # Seg Neutrophils % Seg Neutrophils # POC ABG pH POC ABG pCO2 POC ABG pO2 Sodium Potassium 3.0 L D Carbon Dioxide 18 L BUN 21 H Creatinine 1.6 H D Glucose POC Glucose 110 H Calcium 6.3 L D Magnesium AST 85 H Lactate Dehydrogenase Total Creatine Kinase Total Protein 4.9 L Albumin 2.9 L Salicylates 50.3 H Acetaminophen 04/16/18 04/16/18 04/16/18 00:00 02:03 02:03 Lymph % (Auto) Lymph # Seg Neutrophils % Seg Neutrophils # POC ABG pH 7.517 H POC ABG pCO2 26.3 L POC ABG pO2 173 H Sodium Potassium 3.4 L Carbon Dioxide 17 L BUN 24 H Creatinine 1.8 H Glucose POC Glucose Calcium 6.4 L Magnesium AST Lactate Dehydrogenase Total Creatine Kinase Total Protein Albumin Salicylates 52.4 H Acetaminophen 04/16/18 04/16/18 04/16/18 04:57 06:06 06:20 Lymph % (Auto) Lymph # Seg Neutrophils % Seg Neutrophils # POC ABG pH POC ABG pCO2 34.9 L POC ABG pO2 Sodium Potassium Carbon Dioxide BUN Creatinine Glucose POC Glucose 121 H 136 H Calcium Magnesium AST Lactate Dehydrogenase Total Creatine Kinase Total Protein Albumin Salicylates Acetaminophen 04/16/18 04/16/18 04/16/18 06:34 06:34 07:08 Lymph % (Auto) Lymph # Seg Neutrophils % Seg Neutrophils # POC ABG pH POC ABG pCO2 POC ABG pO2 Sodium Potassium 3.2 L Carbon Dioxide BUN 29 H Creatinine 2.2 H Glucose 129 H POC Glucose 168 H Calcium 6.5 L Magnesium AST Lactate Dehydrogenase Total Creatine Kinase Total Protein Albumin Salicylates 49.2 H Acetaminophen 04/16/18 04/16/18 04/16/18 08:19 09:01 10:11 Lymph % (Auto) Lymph # Seg Neutrophils % Seg Neutrophils # POC ABG pH POC ABG pCO2 POC ABG pO2 Sodium Potassium Carbon Dioxide BUN Creatinine Glucose POC Glucose 121 H 166 H 133 H Calcium Magnesium AST Lactate Dehydrogenase Total Creatine Kinase Total Protein Albumin Salicylates Acetaminophen 04/16/18 04/16/18 04/16/18 10:42 10:42 10:42 Lymph % (Auto) Lymph # Seg Neutrophils % Seg Neutrophils # POC ABG pH POC ABG pCO2 POC ABG pO2 Sodium Potassium 2.8 L* Carbon Dioxide BUN 29 H Creatinine 2.1 H Glucose 171 H POC Glucose Calcium 5.8 L* Magnesium 1.40 L AST Lactate Dehydrogenase Total Creatine Kinase Total Protein Albumin Salicylates 45.2 H Acetaminophen 04/16/18 04/16/18 04/16/18 12:00 13:06 14:00 Lymph % (Auto) Lymph # Seg Neutrophils % Seg Neutrophils # POC ABG pH POC ABG pCO2 POC ABG pO2 Sodium Potassium Carbon Dioxide BUN Creatinine Glucose POC Glucose 134 H 133 H 151 H Calcium Magnesium AST Lactate Dehydrogenase Total Creatine Kinase Total Protein Albumin Salicylates Acetaminophen 04/16/18 04/16/18 04/16/18 15:48 17:15 17:53 Lymph % (Auto) Lymph # Seg Neutrophils % Seg Neutrophils # POC ABG pH POC ABG pCO2 POC ABG pO2 Sodium Potassium Carbon Dioxide BUN Creatinine Glucose POC Glucose 128 H 119 H 140 H Calcium Magnesium AST Lactate Dehydrogenase Total Creatine Kinase Total Protein Albumin Salicylates Acetaminophen 04/16/18 04/16/18 04/16/18 19:00 19:03 19:10 Lymph % (Auto) Lymph # Seg Neutrophils % Seg Neutrophils # POC ABG pH POC ABG pCO2 POC ABG pO2 Sodium Potassium 2.8 L* 3.0 L Carbon Dioxide BUN Creatinine Glucose 103 H POC Glucose Calcium 8.0 L D Magnesium 1.50 L AST Lactate Dehydrogenase 556 H Total Creatine Kinase Total Protein Albumin Salicylates Acetaminophen 04/16/18 04/16/18 04/16/18 19:21 20:21 21:35 Lymph % (Auto) Lymph # Seg Neutrophils % Seg Neutrophils # POC ABG pH POC ABG pCO2 POC ABG pO2 Sodium Potassium Carbon Dioxide BUN Creatinine Glucose POC Glucose 114 H 116 H 128 H Calcium Magnesium AST Lactate Dehydrogenase Total Creatine Kinase Total Protein Albumin Salicylates Acetaminophen 04/16/18 04/16/18 04/16/18 22:43 22:50 22:53 Lymph % (Auto) Lymph # Seg Neutrophils % Seg Neutrophils # POC ABG pH 7.471 H POC ABG pCO2 46.9 H POC ABG pO2 Sodium Potassium 2.7 L* Carbon Dioxide 31 H BUN Creatinine Glucose 113 H POC Glucose 114 H Calcium 7.6 L Magnesium AST Lactate Dehydrogenase Total Creatine Kinase Total Protein Albumin Salicylates Acetaminophen 04/17/18 04/17/18 04/17/18 01:23 01:32 02:23 Lymph % (Auto) Lymph # Seg Neutrophils % Seg Neutrophils # POC ABG pH POC ABG pCO2 POC ABG pO2 Sodium Potassium 2.7 L* Carbon Dioxide 33 H BUN Creatinine Glucose 126 H POC Glucose 125 H 140 H Calcium 7.1 L Magnesium AST Lactate Dehydrogenase Total Creatine Kinase Total Protein Albumin Salicylates Acetaminophen 04/17/18 04/17/18 04/17/18 03:21 04:37 05:42 Lymph % (Auto) Lymph # Seg Neutrophils % Seg Neutrophils # POC ABG pH POC ABG pCO2 48.3 H POC ABG pO2 68 L Sodium Potassium 3.0 L Carbon Dioxide 33 H BUN Creatinine Glucose POC Glucose 149 H Calcium 7.5 L Magnesium AST Lactate Dehydrogenase Total Creatine Kinase Total Protein Albumin Salicylates Acetaminophen 04/17/18 06:23 Lymph % (Auto) Lymph # Seg Neutrophils % Seg Neutrophils # POC ABG pH POC ABG pCO2 POC ABG pO2 Sodium Potassium Carbon Dioxide BUN Creatinine Glucose POC Glucose 113 H Calcium Magnesium AST Lactate Dehydrogenase Total Creatine Kinase Total Protein Albumin Salicylates Acetaminophen Chest x-ray: image reviewed (ETT riding a little high; no focal infiltrate) Allied health notes reviewed: nursing
--- NOTE | 2018-04-17 08:19 | Progress Note ---
Assessment and Plan Assessment and plan: 1. Ventilator dependent Respiratory failure Pulm following, weaning trial started plan for extubation today 2. Encephalopathy continue neuro checks Decrease sedation 3. Salicylate poisoning syndrome Continue Poison Control recommendation IV bicarbonate, serial ABG, BMP 4. Acute Metabolic acidosis (due to sallicylate poisoning) IV bicarbonate therapy Monitor daily BMP 5. Acute renal failure (resolved) Continue IV fluid for hydration/renal perfusion 6. Hypokalemia Replace potassium and magnesium Recheck potassium/mag level post HD GI/ DVT prophylaxis The high probability of a clinically significant, sudden or life threatening deterioration of the system(s) required my full and direct attention, intervention and personal management. The aggregate critical care time was [35] minutes. This time is in addition to time spent performing reported procedures but includes the following: [x] Data Review and interpretation [x] Patient assessment and monitoring of vital signs [x] Documentation [x] Medication orders and management History Interval history: Pt is intubated and anxious in bed, pulling in restraint, attempt to pull out tube Hospitalist Physical - Constitutional Vitals: Temp Pulse Resp BP Pulse Ox 98.1 F 104 H 19 113/74 98 04/17/18 08:00 04/17/18 08:00 04/17/18 08:00 04/17/18 08:00 04/17/18 08:00 General appearance: Present: severe distress, obese, other (intubated) - EENT Eyes: Present: EOM intact - Neck Neck: Present: normal ROM - Respiratory Respiratory effort: normal - Cardiovascular Rhythm: regular Heart Sounds: Present: S1 & S2 - Extremities Extremities: normal color Extremity abnormal: edema (trace) Peripheral Pulses: within normal limits - Abdominal General gastrointestinal: tender, non-distended - Integumentary Integumentary: Present: warm, dry - Psychiatric Psychiatric: agitated - Neurologic Neurologic: moves all extremities Results - Labs CBC & Chem 7: 04/15/18 09:25 04/17/18 04:37 Labs: Laboratory Last Values WBC 10.9 K/mm3 (4.5-11.0) 04/15/18 09:25 RBC 4.82 M/mm3 (3.65-5.03) 04/15/18 09:25 Hgb 14.0 gm/dl (11.8-15.2) 04/15/18 09:25 Hct 42.3 % (35.5-45.6) 04/15/18 09:25 MCV 88 fl (84-94) 04/15/18 09:25 MCH 29 pg (28-32) 04/15/18 09:25 MCHC 33 % (32-34) 04/15/18 09:25 RDW 14.0 % (13.2-15.2) 04/15/18 09:25 Plt Count 343 K/mm3 (140-440) 04/15/18 09:25 Lymph % (Auto) 8.7 % (13.4-35.0) L 04/15/18 09:25 [place] % (Auto) 5.0 % (0.0-7.3) 04/15/18 09:25 Eos % (Auto) 0.2 % (0.0-4.3) 04/15/18 09:25 Baso % (Auto) 0.5 % (0.0-1.8) 04/15/18 09:25 Lymph # 0.9 K/mm3 (1.2-5.4) L 04/15/18 09:25 [place] # 0.5 K/mm3 (0.0-0.8) 04/15/18 09:25 Eos # 0.0 K/mm3 (0.0-0.4) 04/15/18 09:25 Baso # 0.1 K/mm3 (0.0-0.1) 04/15/18 09:25 Seg Neutrophils % 85.6 % (40.0-70.0) H 04/15/18 09:25 Seg Neutrophils # 9.3 K/mm3 (1.8-7.7) H 04/15/18 09:25 POC ABG pH 7.443 (7.35-7.45) 04/17/18 05:42 POC ABG pCO2 48.3 (35-45) H 04/17/18 05:42 POC ABG pO2 68 (80-105) L 04/17/18 05:42 POC ABG HCO3 33.0 04/17/18 05:42 POC ABG Total CO2 34 04/17/18 05:42 POC ABG O2 Sat 94 04/17/18 05:42 POC ABG Base Excess 9 04/17/18 05:42 FiO2 30 % 04/17/18 05:42 Sodium 142 mmol/L (137-145) 04/17/18 04:37 Potassium 3.0 mmol/L (3.6-5.0) L 04/17/18 04:37 Chloride 101.9 mmol/L (98-107) 04/17/18 04:37 Carbon Dioxide 33 mmol/L (22-30) H 04/17/18 04:37 Anion Gap 10 mmol/L 04/17/18 04:37 BUN 11 mg/dL (9-20) 04/17/18 04:37 Creatinine 1.2 mg/dL (0.8-1.5) 04/17/18 04:37 Estimated GFR > 60 ml/min 04/17/18 04:37 BUN/Creatinine Ratio 9 % 04/17/18 04:37 Glucose 91 mg/dL (75-100) 04/17/18 04:37 POC Glucose 113 (70-105) H 04/17/18 06:23 Lactic Acid 1.60 mmol/L (0.7-2.0) 04/16/18 10:42 Calcium 7.5 mg/dL (8.4-10.2) L 04/17/18 04:37 Magnesium 1.50 mg/dL (1.7-2.3) L 04/16/18 19:03 Total Bilirubin < 0.20 mg/dL (0.1-1.2) 04/15/18 23:55 AST 85 units/L (5-40) H 04/15/18 23:55 ALT 38 units/L (7-56) 04/15/18 23:55 Alkaline Phosphatase 42 units/L (35-129) 04/15/18 23:55 Lactate Dehydrogenase 556 units/L (91-180) H 04/16/18 19:00 Total Creatine Kinase 190 units/L (55-170) H 04/15/18 10:57 Troponin T < 0.010 ng/mL (0.00-0.029) 04/15/18 10:57 Total Protein 4.9 g/dL (6.3-8.2) L 04/15/18 23:55 Albumin 2.9 g/dL (3.9-5) L 04/15/18 23:55 Albumin/Globulin Ratio 1.5 % 04/15/18 23:55 Urine Color Yellow (Yellow) 04/15/18 Unknown Urine Turbidity Clear (Clear) 04/15/18 Unknown Urine pH 6.0 (5.0-7.0) 04/15/18 Unknown Ur Specific [place] 1.015 (1.003-1.030) 04/15/18 Unknown Urine Protein 100 mg/dl mg/dL (Negative) 04/15/18 Unknown Urine Glucose (UA) 50 mg/dL (Negative) 04/15/18 Unknown Urine Ketones 20 mg/dL (Negative) 04/15/18 Unknown Urine Blood Neg (Negative) 04/15/18 Unknown Urine Nitrite Neg (Negative) 04/15/18 Unknown Urine Bilirubin Neg (Negative) 04/15/18 Unknown Urine Urobilinogen < 2.0 mg/dL (<2.0) 04/15/18 Unknown Ur Leukocyte Esterase Neg (Negative) 04/15/18 Unknown Urine WBC (Auto) 4.0 /HPF (0.0-6.0) 04/15/18 Unknown Urine RBC (Auto) 2.0 /HPF (0.0-6.0) 04/15/18 Unknown Salicylates 15.1 mg/dL (2.8-20.0) 04/17/18 04:37 Urine Opiates Screen Presumptive negative 04/15/18 Unknown Urine Methadone Screen Presumptive negative 04/15/18 Unknown Acetaminophen < 5.0 ug/mL (10.0-30.0) L 04/15/18 10:54 Ur Barbiturates Screen Presumptive negative 04/15/18 Unknown Ur Phencyclidine Scrn Presumptive negative 04/15/18 Unknown Ur Amphetamines Screen Presumptive negative 04/15/18 Unknown U Benzodiazepines Scrn Presumptive negative 04/15/18 Unknown Urine Cocaine Screen Presumptive negative 04/15/18 Unknown U Marijuana (THC) Screen Presumptive negative 04/15/18 Unknown Drugs of Abuse Note Disclamer 04/15/18 Unknown Plasma/Serum Alcohol < 0.01 % (0-0.07) 04/15/18 10:56 Hep Bs Antigen Non-reactive (Negative) 04/15/18 15:45 Hep B Core IgM Ab Non-reactive (NonReactive) 04/15/18 15:45 Hepatitis C Antibody Non-reactive (NonReactive) 04/15/18 15:45
--- NOTE | 2018-04-17 08:56 | XRay Report ---
AP CHEST: HISTORY: Endotracheal tube position The endotracheal tube terminates 6 cm superior to the tomasa. A nasogastric tube is followed to the mid stomach. Minor segmental atelectasis has developed since 04/15/18. Otherwise, the lungs are clear. Normal heart and mediastinal structures. IMPRESSION: Adequate positioning of lines and tubes. Minor segmental atelectasis in the left lower lobe.
[2018-04-17] MEDS: PEPCID IV SCH (09:07)
[2018-04-17] MEDS ORDERED: ATIVAN IV PRN (10:48)
[2018-04-17] MEDS ORDERED: DILAUDID IV PRN (10:48)
[2018-04-17] MEDS ORDERED: VASELINE LIP THERAPY TP PRN (10:48)
[2018-04-17] MEDS ORDERED: ARTIFICIAL TEARS OPHTH OINT OU PRN (10:48)
--- NOTE | 2018-04-17 11:19 | Progress Note ---
Subjective Principal diagnosis: Acute hypoxemic respiratory failure; Salicylate poisoning ; THOMAS Interval history: Patient was seen today for follow-up on multiple renal related issues Events of this hospitalization noted, remains on vent Mother at the bedside Received 2 dialysis treatments Vitals labs intake output medications were reviewed Social history: Reviewed Allergies: Reviewed Family history: Reviewed Physical examination HEENT: Oral mucosa moist no pallor or icterus Neck: Supple no JVD Chest: Clear to auscultation anteriorly CVS: Regular rate and rhythm S1 and S2 heard Abdomen: Soft nontender no suprapubic masses no organomegaly appreciable Extremity: Dry skin less than 1+ peripheral edema Musculoskeletal: No joint effusion noted in knees and ankle Neurological: Alert awake Dermatology: No petechial rashes Psychiatry: No evidence of any agitation and aggression noted Assessment and plan Salicylate intoxication status post to hemodialysis treatment patient is clinically doing better Acute kidney injury due to hypotension volume depletion salicylate intoxication renal function appears to be stable patient is nonoliguric Had a long discussion with patient's mother who was counseled and educated about the renal care plan I do not see any indication for renal replacement therapy today Will need to monitor renal function Hypotension: Currently doing better Respiratory failure intubated clinically more stable Hypokalemia: To monitor and follow, suggest correction to around 4.0 please replace and follow History of bipolar disorder admitted with salicylate toxicity metabolic acidosis , We'll continue to follow and make recommendation from renal standpoint Objective - Vital Signs Vital signs: Vital Signs - 12hr 04/16/18 04/16/18 04/16/18 23:20 23:31 23:41 Temperature Pulse Rate 96 H Pulse Rate [ From Monitor] Respiratory 24 Rate Blood Pressure 106/56 106/56 132/31 O2 Sat by Pulse 96 98 100 Oximetry 04/16/18 04/17/18 04/17/18 23:51 00:00 00:11 Temperature 98.1 F Pulse Rate 113 H 121 H Pulse Rate [ 126 H From Monitor] Respiratory 21 23 Rate Blood Pressure 132/31 108/76 108/76 O2 Sat by Pulse 98 97 95 Oximetry 04/17/18 04/17/18 04/17/18 00:20 00:31 00:38 Temperature Pulse Rate 101 H 100 H Pulse Rate [ From Monitor] Respiratory 16 15 Rate Blood Pressure 106/49 106/49 106/49 O2 Sat by Pulse 92 94 96 Oximetry 04/17/18 04/17/1818 00:40 00:51 01:00 Temperature Pulse Rate 99 H 100 H 97 H Pulse Rate [ From Monitor] Respiratory 15 13 15 Rate Blood Pressure 106/50 106/50 114/54 O2 Sat by Pulse 94 95 95 Oximetry 04/17/18 04/17/18 04/17/18 01:11 01:20 01:31 Temperature Pulse Rate 96 H 97 H 95 H Pulse Rate [ From Monitor] Respiratory 15 11 L 14 Rate Blood Pressure 114/54 105/53 105/53 O2 Sat by Pulse 95 95 95 Oximetry 04/17/18 04/17/18 04/17/18 01:40 01:51 02:00 Temperature Pulse Rate 95 H 95 H 95 H Pulse Rate [ 94 H From Monitor] Respiratory 17 12 11 L Rate Blood Pressure 109/55 109/55 114/56 O2 Sat by Pulse 95 97 97 Oximetry 04/17/18 04/17/18 04/17/18 02:11 02:20 02:30 Temperature Pulse Rate 93 H 91 H 96 H Pulse Rate [ From Monitor] Respiratory 14 11 L 14 Rate Blood Pressure 114/56 107/58 107/58 O2 Sat by Pulse 97 97 97 Oximetry 04/17/18 04/17/18 04/17/18 02:40 02:51 03:00 Temperature Pulse Rate 94 H 98 H 96 H Pulse Rate [ From Monitor] Respiratory 21 20 20 Rate Blood Pressure 113/70 113/70 127/78 O2 Sat by Pulse 98 100 99 Oximetry 04/17/18 04/17/18 04/17/18 03:11 03:20 03:31 Temperature Pulse Rate 99 H 100 H 102 H Pulse Rate [ From Monitor] Respiratory 12 14 11 L Rate Blood Pressure 113/70 133/74 133/74 O2 Sat by Pulse 100 99 98 Oximetry 04/17/18 04/17/18 04/17/18 03:40 03:51 04:00 Temperature Pulse Rate 97 H 98 H 97 H Pulse Rate [ 131 H From Monitor] Respiratory 14 9 L 15 Rate Blood Pressure 124/78 124/78 122/67 O2 Sat by Pulse 98 97 98 Oximetry 04/17/18 04/17/18 04/17/18 04:11 04:20 04:31 Temperature Pulse Rate 101 H 104 H 126 H Pulse Rate [ From Monitor] Respiratory 13 12 19 Rate Blood Pressure 122/67 122/73 122/73 O2 Sat by Pulse 95 98 100 Oximetry 04/17/18 04/17/18 04/17/18 04:36 04:40 04:51 Temperature Pulse Rate 126 H 129 H Pulse Rate [ From Monitor] Respiratory 17 22 Rate Blood Pressure 122/73 137/89 137/89 O2 Sat by Pulse 97 98 98 Oximetry 04/17/18 04/17/18 04/17/18 05:00 05:11 05:20 Temperature Pulse Rate 124 H 131 H 118 H Pulse Rate [ From Monitor] Respiratory 18 16 10 L Rate Blood Pressure 137/93 137/93 116/67 O2 Sat by Pulse 98 97 93 Oximetry 04/17/18 04/17/18 04/17/18 05:31 05:40 05:41 Temperature Pulse Rate 107 H 116 H 116 H Pulse Rate [ From Monitor] Respiratory 11 L 12 Rate Blood Pressure 116/67 113/67 113/67 O2 Sat by Pulse 93 95 115 H Oximetry 04/17/18 04/17/18 04/17/18 05:51 06:00 06:11 Temperature Pulse Rate 115 H 105 H 129 H Pulse Rate [ 129 H From Monitor] Respiratory 17 9 L 20 Rate Blood Pressure 113/67 112/54 112/54 O2 Sat by Pulse 98 97 100 Oximetry 04/17/18 04/17/18 04/17/18 06:20 06:31 06:41 Temperature Pulse Rate 118 H 113 H 131 H Pulse Rate [ From Monitor] Respiratory 12 18 19 Rate Blood Pressure 121/61 121/61 121/61 O2 Sat by Pulse 97 95 99 Oximetry 04/17/18 04/17/18 04/17/18 06:51 07:00 07:11 Temperature Pulse Rate 120 H 111 H 109 H Pulse Rate [ From Monitor] Respiratory 18 20 12 Rate Blood Pressure 116/88 109/70 116/88 O2 Sat by Pulse 99 96 97 Oximetry 04/17/18 04/17/18 04/17/18 07:20 07:31 07:40 Temperature Pulse Rate 107 H 105 H 104 H Pulse Rate [ From Monitor] Respiratory 11 L 16 16 Rate Blood Pressure 113/65 113/65 122/61 O2 Sat by Pulse 97 96 97 Oximetry 04/17/18 04/17/18 04/17/18 07:51 08:00 08:11 Temperature 98.1 F Pulse Rate 108 H 104 H 106 H Pulse Rate [ 111 H From Monitor] Respiratory 14 19 15 Rate Blood Pressure 119/65 113/74 113/74 O2 Sat by Pulse 98 98 97 Oximetry 04/17/18 04/17/18 04/17/18 08:20 08:31 08:40 Temperature Pulse Rate 105 H 102 H 114 H Pulse Rate [ From Monitor] Respiratory 18 17 12 Rate Blood Pressure 118/76 118/76 128/74 O2 Sat by Pulse 99 97 Oximetry 04/17/18 04/17/18 04/17/18 08:51 09:00 09:11 Temperature Pulse Rate 99 H 107 H 117 H Pulse Rate [ From Monitor] Respiratory 16 19 13 Rate Blood Pressure 128/74 136/70 128/74 O2 Sat by Pulse 98 98 100 Oximetry 04/17/18 04/17/18 04/17/18 09:20 09:31 09:40 Temperature Pulse Rate 114 H 117 H 112 H Pulse Rate [ From Monitor] Respiratory 15 18 16 Rate Blood Pressure 141/81 141/81 142/77 O2 Sat by Pulse 100 100 98 Oximetry 04/17/18 04/17/18 04/17/18 09:51 10:00 10:11 Temperature Pulse Rate 119 H 118 H 113 H Pulse Rate [ 115 H From Monitor] Respiratory 16 16 14 Rate Blood Pressure 142/77 139/78 139/78 O2 Sat by Pulse 99 99 98 Oximetry 04/17/18 04/17/18 04/17/18 10:20 10:31 10:40 Temperature Pulse Rate 105 H 102 H 107 H Pulse Rate [ From Monitor] Respiratory 11 L 13 14 Rate Blood Pressure 134/71 134/71 137/81 O2 Sat by Pulse 97 98 100 Oximetry 04/17/18 04/17/18 10:51 11:00 Temperature Pulse Rate 115 H 111 H Pulse Rate [ From Monitor] Respiratory 16 14 Rate Blood Pressure 137/81 132/72 O2 Sat by Pulse 99 98 Oximetry - Lab 04/15/18 09:25 04/17/18 04:37 Most recent lab results Calcium 7.5 mg/dL (8.4-10.2) L 04/17/18 04:37 Magnesium 1.50 mg/dL (1.7-2.3) L 04/16/18 19:03
[2018-04-17] MEDS ORDERED: HALDOL IV PRN (12:31)
--- NOTE | 2018-04-17 13:25 | Progress Note ---
Subjective - Reason for Consult Consult date: 04/17/18 Reason for consult: Psychiatry Follow-up - Chief Complaint Chief complaint: "The patient is lethargic" 27-year-old male who presents after being brought in by EMS after patient was picked up at [facility]. The patient initially presented with a complaint of anxiety. He left the ER and went over to [facility], called 911, and EMS stated that he was sweating. Today the patient is lethargic. Per the patient's assigned nurse, he stated that the patient was recently extubated. Currently, the patient was receiving O2 by face mask. Mental Status Exam - Vital signs Last Vital Signs Temp 98.8 F 04/17/18 12:00 Pulse 116 H 04/17/18 12:00 Resp 19 04/17/18 12:00 BP 125/74 04/17/18 12:00 Pulse Ox 98 04/17/18 12:00 - Exam Narrative exam: Unable to complete the MSE because of the patient's condition. Assessment and Plan Impression: Hx of Bipolar DO per collateral information from his mother Chelsea Nguyen. Elevated Salicylate levels (overdose). Today the patient is lethargic and was recently extubated. The patient is receiving O2 by face mask. Recommendation/Plan: Continue 1013 and assess the patient in 24 hours.
[2018-04-17] MEDS: SODIUM CHLORIDE FLUSH SYRINGE 10 ML IV PRN (13:54)
[2018-04-17] MEDS ORDERED: D10W 1,000 ML IV SCH (16:00)
[2018-04-17] MEDS: ATIVAN IV PRN (20:39)
[2018-04-18] MEDS: PEPCID IV SCH ×3 (00:51→23:50)
[2018-04-18] MEDS: HEPARIN SUB-Q SCH ×4 (00:52→23:49)
[2018-04-18] MEDS: D50W (25GM) Syringe IV PRN (01:04)
[2018-04-18] MEDS: NACL 0.9% 1000 ML 1,000 ML IV SCH (01:21)
[2018-04-18] MEDS: ATIVAN IV PRN ×2 (04:39→06:02)
[2018-04-18 05:08] LABS: BUN/Creatinine Ratio 6; Blood Urea Nitrogen 5 mg/dL (9-20); Calcium 7.3 mg/dL (8.4-10.2); Hemolysis Index 3
[2018-04-18] MEDS ORDERED: MAGNESIUM SULFATE 3 GM in NACL 0.9% 100 ML IV ONE (05:48)
[2018-04-18] MEDS: KCL 10MEQ/100ML 10 MEQ/100 ML BAG IV SCH ×2 (06:00→09:25)
--- NOTE | 2018-04-18 07:43 | Progress Note ---
Assessment and Plan Impression: * Salicylate toxicity secondary to intention overdose * Acute kidney injury secondary to #1 * Metabolic acidosis/respiratory alkalosis secondary to #1 * Hypokalemia * Bipolar disorder Plan: * No further indication for dialysis at present - last treatment was 2 days ago * Will d/c bicarb gtt; start NS 75ml/hour - ?po intake * Replete lytes prn - note order for K IV and po replacement * Will remove femoral vascath today - discussed with HD RN * Avoid potential nephrotoxins * Dose medications for renal function * Mother at bedside - updated Subjective Date of service: 04/18/18 Principal diagnosis: Acute hypoxemic respiratory failure; Salicylate poisoning ; THOMAS Interval history: No acute events overnight. Objective - Vital Signs Vital signs: Vital Signs - 12hr 04/17/18 04/17/18 04/17/18 19:51 20:00 20:10 Temperature 100 F H Pulse Rate 107 H 102 H 133 H Pulse Rate [ 108 H From Monitor] Respiratory 20 19 23 Rate Blood Pressure 143/84 139/88 139/88 O2 Sat by Pulse 100 100 99 Oximetry 04/17/18 04/17/18 04/17/18 20:20 20:31 20:40 Temperature Pulse Rate 121 H 128 H 114 H Pulse Rate [ From Monitor] Respiratory 22 23 22 Rate Blood Pressure 151/94 139/88 129/73 O2 Sat by Pulse 97 95 97 Oximetry 04/17/18 04/17/18 04/17/18 20:51 21:00 21:11 Temperature Pulse Rate 106 H 107 H 110 H Pulse Rate [ From Monitor] Respiratory 21 21 19 Rate Blood Pressure 129/73 133/81 133/81 O2 Sat by Pulse 99 100 100 Oximetry 04/17/18 04/17/18 04/17/18 21:20 21:31 21:40 Temperature Pulse Rate 115 H 106 H 111 H Pulse Rate [ From Monitor] Respiratory 24 22 22 Rate Blood Pressure 139/88 133/81 144/78 O2 Sat by Pulse 97 99 99 Oximetry 04/17/18 04/17/18 04/17/18 21:51 22:00 22:11 Temperature Pulse Rate 105 H 109 H 111 H Pulse Rate [ 110 H From Monitor] Respiratory 21 20 22 Rate Blood Pressure 144/78 141/75 141/75 O2 Sat by Pulse 99 95 99 Oximetry 04/17/18 04/17/18 04/17/18 22:20 22:31 22:40 Temperature Pulse Rate 106 H 113 H 107 H Pulse Rate [ From Monitor] Respiratory 21 22 21 Rate Blood Pressure 136/71 136/71 139/76 O2 Sat by Pulse 98 99 97 Oximetry 04/17/18 04/17/18 04/17/18 22:51 23:01 23:11 Temperature Pulse Rate 109 H 129 H 120 H Pulse Rate [ From Monitor] Respiratory 21 22 25 H Rate Blood Pressure 139/76 142/75 142/75 O2 Sat by Pulse 99 97 98 Oximetry 04/17/18 04/17/18 04/17/18 23:20 23:31 23:40 Temperature Pulse Rate 120 H 119 H 116 H Pulse Rate [ From Monitor] Respiratory 25 H 23 23 Rate Blood Pressure 134/82 134/82 133/84 O2 Sat by Pulse 99 98 98 Oximetry 04/17/18 04/18/18 04/18/18 23:51 00:00 00:03 Temperature 98.6 F Pulse Rate 109 H 115 H 111 H Pulse Rate [ 115 H From Monitor] Respiratory 22 24 21 Rate Blood Pressure 133/84 141/88 133/84 O2 Sat by Pulse 98 100 98 Oximetry 04/18/18 04/18/18 04/18/18 00:11 00:20 00:31 Temperature Pulse Rate 116 H 113 H 105 H Pulse Rate [ From Monitor] Respiratory 22 23 21 Rate Blood Pressure 133/84 133/97 141/88 O2 Sat by Pulse 99 100 100 Oximetry 04/18/18 04/18/18 04/18/18 00:41 00:51 01:00 Temperature Pulse Rate 125 H 111 H 110 H Pulse Rate [ From Monitor] Respiratory 20 23 21 Rate Blood Pressure 140/83 140/83 140/83 O2 Sat by Pulse 97 98 100 Oximetry 04/18/18 04/18/18 04/18/18 01:11 01:20 01:31 Temperature Pulse Rate 123 H 123 H 121 H Pulse Rate [ From Monitor] Respiratory 22 25 H 25 H Rate Blood Pressure 140/83 135/84 135/84 O2 Sat by Pulse 97 97 95 Oximetry 04/18/18 04/18/18 04/18/18 01:40 01:51 02:00 Temperature 100 F H Pulse Rate 117 H 117 H 115 H Pulse Rate [ From Monitor] Respiratory 22 21 21 Rate Blood Pressure 138/69 138/69 137/75 O2 Sat by Pulse 96 97 97 Oximetry 04/18/18 04/18/18 04/18/18 02:11 02:20 02:31 Temperature Pulse Rate 119 H 105 H 105 H Pulse Rate [ From Monitor] Respiratory 18 19 21 Rate Blood Pressure 138/69 145/81 145/81 O2 Sat by Pulse 99 98 99 Oximetry 04/18/18 04/18/18 04/18/18 02:40 02:51 03:00 Temperature Pulse Rate 101 H 102 H 112 H Pulse Rate [ From Monitor] Respiratory 21 20 22 Rate Blood Pressure 139/82 139/82 153/93 O2 Sat by Pulse 100 100 98 Oximetry 04/18/18 04/18/18 04/18/18 03:11 03:21 03:30 Temperature Pulse Rate 123 H 122 H 111 H Pulse Rate [ From Monitor] Respiratory 23 33 H 20 Rate Blood Pressure 153/93 153/93 146/75 O2 Sat by Pulse 97 97 97 Oximetry 04/18/18 04/18/18 04/18/18 03:40 03:51 04:00 Temperature 100.1 F H Pulse Rate 107 H 110 H 112 H Pulse Rate [ 102 H From Monitor] Respiratory 21 20 20 Rate Blood Pressure 130/72 130/72 133/64 O2 Sat by Pulse 99 99 98 Oximetry 04/18/18 04/18/18 04/18/18 04:11 04:20 04:31 Temperature Pulse Rate 110 H 104 H 100 H Pulse Rate [ From Monitor] Respiratory 20 21 20 Rate Blood Pressure 133/64 132/71 132/71 O2 Sat by Pulse 98 99 100 Oximetry 04/18/18 04/18/18 04/18/18 04:40 04:51 05:00 Temperature Pulse Rate 99 H 107 H 103 H Pulse Rate [ From Monitor] Respiratory 20 22 21 Rate Blood Pressure 134/77 134/77 129/81 O2 Sat by Pulse 100 97 100 Oximetry 04/18/18 04/18/18 04/18/18 05:11 05:20 05:31 Temperature Pulse Rate 102 H 102 H 100 H Pulse Rate [ From Monitor] Respiratory 22 21 20 Rate Blood Pressure 134/77 126/77 126/77 O2 Sat by Pulse 99 100 100 Oximetry 04/18/18 04/18/18 04/18/18 05:40 05:51 06:01 Temperature Pulse Rate 101 H 99 H 123 H Pulse Rate [ From Monitor] Respiratory 20 21 26 H Rate Blood Pressure 135/82 135/82 157/80 O2 Sat by Pulse 100 100 95 Oximetry 04/18/18 04/18/18 04/18/18 06:11 06:20 06:31 Temperature Pulse Rate 110 H 109 H 136 H Pulse Rate [ From Monitor] Respiratory 25 H 23 27 H Rate Blood Pressure 157/80 126/65 126/65 O2 Sat by Pulse 95 95 96 Oximetry 04/18/18 04/18/18 04/18/18 06:40 06:51 07:00 Temperature Pulse Rate 106 H 102 H 105 H Pulse Rate [ From Monitor] Respiratory 22 22 28 H Rate Blood Pressure 126/57 126/57 133/64 O2 Sat by Pulse 96 97 97 Oximetry - General Appearance General appearance: well-developed, well-nourished EENT: ATNC Respiratory: Present: Clear to Ascultation Cardiology: regular, S1S2 Gastrointestinal: normal, no tenderness, no distended Integumentary: no rash, warm and dry Neurologic: other (lethargic) Psychiatric: cooperative - Lab 04/15/18 09:25 04/18/18 04:25 Most recent lab results Calcium 7.3 mg/dL (8.4-10.2) L 04/18/18 04:25 Magnesium 1.60 mg/dL (1.7-2.3) L 04/18/18 04:25
[2018-04-18] MEDS: SODIUM CHLORIDE FLUSH SYRINGE 10 ML IV SCH ×3 (09:39→23:50)
--- NOTE | 2018-04-18 10:14 | Progress Note ---
Assessment and Plan Assessment and plan: 1. s/p extubation day 2 (O2 sat stable in 3L via NC) 2. Encephalopathy/lethargy continue neuro checks Decrease sedation 3. Salicylate poisoning syndrome Continue Poison Control recommendation IV bicarbonate, serial ABG, BMP 4. Hypokalemia Replace potassium and magnesium Recheck potassium/mag level today 5. H/o bipolar disorder Resume home meds GI/ DVT prophylaxis The high probability of a clinically significant, sudden or life threatening deterioration of the system(s) required my full and direct attention, intervention and personal management. The aggregate critical care time was [30] minutes. This time is in addition to time spent performing reported procedures but includes the following: [x] Data Review and interpretation [x] Patient assessment and monitoring of vital signs [x] Documentation [x] Medication orders and management History Interval history: Pt is lethargic and disoriented, O2 at 3L NC, sat stable Hospitalist Physical - Constitutional Vitals: Temp Pulse Resp BP Pulse Ox 98.1 F 97 H 26 H 125/76 100 04/18/18 08:00 04/18/18 09:00 04/18/18 09:00 04/18/18 09:00 04/18/18 10:00 General appearance: Present: mild distress, obese, other (intubated) - EENT Eyes: Present: PERRL, EOM intact - Neck Neck: Present: normal ROM - Respiratory Respiratory effort: normal (even and unlabor ) - Cardiovascular Rhythm: regular - Extremities Extremities: No edema - Abdominal General gastrointestinal: non-tender, non-distended - Integumentary Integumentary: Present: warm, dry - Psychiatric Psychiatric: other (unable to evaluate) - Neurologic Neurologic: moves all extremities Results - Labs CBC & Chem 7: 04/15/18 09:25 04/18/18 04:25 Labs: Laboratory Last Values WBC 10.9 K/mm3 (4.5-11.0) 04/15/18 09:25 RBC 4.82 M/mm3 (3.65-5.03) 04/15/18 09:25 Hgb 14.0 gm/dl (11.8-15.2) 04/15/18 09:25 Hct 42.3 % (35.5-45.6) 04/15/18 09:25 MCV 88 fl (84-94) 04/15/18 09:25 MCH 29 pg (28-32) 04/15/18 09:25 MCHC 33 % (32-34) 04/15/18 09:25 RDW 14.0 % (13.2-15.2) 04/15/18 09:25 Plt Count 343 K/mm3 (140-440) 04/15/18 09:25 Lymph % (Auto) 8.7 % (13.4-35.0) L 04/15/18 09:25 [place] % (Auto) 5.0 % (0.0-7.3) 04/15/18 09:25 Eos % (Auto) 0.2 % (0.0-4.3) 04/15/18 09:25 Baso % (Auto) 0.5 % (0.0-1.8) 04/15/18 09:25 Lymph # 0.9 K/mm3 (1.2-5.4) L 04/15/18 09:25 [place] # 0.5 K/mm3 (0.0-0.8) 04/15/18 09:25 Eos # 0.0 K/mm3 (0.0-0.4) 04/15/18 09:25 Baso # 0.1 K/mm3 (0.0-0.1) 04/15/18 09:25 Seg Neutrophils % 85.6 % (40.0-70.0) H 04/15/18 09:25 Seg Neutrophils # 9.3 K/mm3 (1.8-7.7) H 04/15/18 09:25 POC ABG pH 7.443 (7.35-7.45) 04/17/18 05:42 POC ABG pCO2 48.3 (35-45) H 04/17/18 05:42 POC ABG pO2 68 (80-105) L 04/17/18 05:42 POC ABG HCO3 33.0 04/17/18 05:42 POC ABG Total CO2 34 04/17/18 05:42 POC ABG O2 Sat 94 04/17/18 05:42 POC ABG Base Excess 9 04/17/18 05:42 FiO2 30 % 04/17/18 05:42 Sodium 145 mmol/L (137-145) 04/18/18 04:25 Potassium 2.8 mmol/L (3.6-5.0) L* 04/18/18 04:25 Chloride 106.9 mmol/L (98-107) 04/18/18 04:25 Carbon Dioxide 31 mmol/L (22-30) H 04/18/18 04:25 Anion Gap 10 mmol/L 04/18/18 04:25 BUN 5 mg/dL (9-20) L 04/18/18 04:25 Creatinine 0.9 mg/dL (0.8-1.5) 04/18/18 04:25 Estimated GFR > 60 ml/min 04/18/18 04:25 BUN/Creatinine Ratio 6 % 04/18/18 04:25 Glucose 87 mg/dL (75-100) 04/18/18 04:25 POC Glucose 83 (70-105) 04/18/18 06:15 Lactic Acid 1.60 mmol/L (0.7-2.0) 04/16/18 10:42 Calcium 7.3 mg/dL (8.4-10.2) L 04/18/18 04:25 Magnesium 1.60 mg/dL (1.7-2.3) L 04/18/18 04:25 Total Bilirubin < 0.20 mg/dL (0.1-1.2) 04/15/18 23:55 AST 85 units/L (5-40) H 04/15/18 23:55 ALT 38 units/L (7-56) 04/15/18 23:55 Alkaline Phosphatase 42 units/L (35-129) 04/15/18 23:55 Lactate Dehydrogenase 556 units/L (91-180) H 04/16/18 19:00 Total Creatine Kinase 190 units/L (55-170) H 04/15/18 10:57 Troponin T < 0.010 ng/mL (0.00-0.029) 04/15/18 10:57 Total Protein 4.9 g/dL (6.3-8.2) L 04/15/18 23:55 Albumin 2.9 g/dL (3.9-5) L 04/15/18 23:55 Albumin/Globulin Ratio 1.5 % 04/15/18 23:55 Urine Color Yellow (Yellow) 04/15/18 Unknown Urine Turbidity Clear (Clear) 04/15/18 Unknown Urine pH 6.0 (5.0-7.0) 04/15/18 Unknown Ur Specific [place] 1.015 (1.003-1.030) 04/15/18 Unknown Urine Protein 100 mg/dl mg/dL (Negative) 04/15/18 Unknown Urine Glucose (UA) 50 mg/dL (Negative) 04/15/18 Unknown Urine Ketones 20 mg/dL (Negative) 04/15/18 Unknown Urine Blood Neg (Negative) 04/15/18 Unknown Urine Nitrite Neg (Negative) 04/15/18 Unknown Urine Bilirubin Neg (Negative) 04/15/18 Unknown Urine Urobilinogen < 2.0 mg/dL (<2.0) 04/15/18 Unknown Ur Leukocyte Esterase Neg (Negative) 04/15/18 Unknown Urine WBC (Auto) 4.0 /HPF (0.0-6.0) 04/15/18 Unknown Urine RBC (Auto) 2.0 /HPF (0.0-6.0) 04/15/18 Unknown Salicylates 15.1 mg/dL (2.8-20.0) 04/17/18 04:37 Urine Opiates Screen Presumptive negative 04/15/18 Unknown Urine Methadone Screen Presumptive negative 04/15/18 Unknown Acetaminophen < 5.0 ug/mL (10.0-30.0) L 04/15/18 10:54 Ur Barbiturates Screen Presumptive negative 04/15/18 Unknown Ur Phencyclidine Scrn Presumptive negative 04/15/18 Unknown Ur Amphetamines Screen Presumptive negative 04/15/18 Unknown U Benzodiazepines Scrn Presumptive negative 04/15/18 Unknown Urine Cocaine Screen Presumptive negative 04/15/18 Unknown U Marijuana (THC) Screen Presumptive negative 04/15/18 Unknown Drugs of Abuse Note Disclamer 04/15/18 Unknown Plasma/Serum Alcohol < 0.01 % (0-0.07) 04/15/18 10:56 Hep Bs Antigen Non-reactive (Negative) 04/15/18 15:45 Hep B Core IgM Ab Non-reactive (NonReactive) 04/15/18 15:45 Hepatitis C Antibody Non-reactive (NonReactive) 04/15/18 15:45
[2018-04-18] MEDS: K-DUR PO SCH ×3 (14:38→18:02)
--- NOTE | 2018-04-18 15:56 | Progress Note ---
Assessment and Plan Acute hypoxemic respiratory failure Salicylate poisoning Metabolic acidosis Acute encephalopathy Acute renal failure SIRS, does not appear to be sepsis related h/o Bipolar disorder Unclear as to intentional OD Obesity Hypokelemia - advance diet - discontinued groin CVL - stop hourly accuchecks - ASA levels reducing - discontinued bicarbonate infusion - PT/OT evaluate and treat - VAP bundle addressed - Stopped serial ABG's - Continue to monitor renal function - All critical care bundles addressed - continue duong catheter for accurate intake and output monitoring, in this critically ill patient with acute renal failure (d/c when ok with nephrology) - CXRs prn at this point - VTE prophylaxis - Stress ulcer prophylaxis - Follow blood cultures, sputum and urine cultures - Discontinued antibiotics - Agitation management - Replete electrolytes as indicated ....transfer to medical floor on 101 status ok with sitter ....... FULL CODE STATUS Subjective Date of service: 04/18/18 Principal diagnosis: Acute hypoxemic respiratory failure; Salicylate poisoning ; THOMAS Interval history: Patient is seen today for: Acute hypoxemic respiratory failure; Salicylate poisoning; Metabolic acidosis; Acute encephalopathy; Acute renal failure Seen and examined at bedside; 24hour events reviewed; nursing and respiratory care staff consulted; no adverse overnight events reported to me; doing much better; remains on supplemental oxygen; No N/V/F/C; still with some tangential thoughts. Objective Vital Signs - 12hr 04/18/18 04/18/18 04/18/18 04:00 04:11 04:20 Temperature 100.1 F H Pulse Rate 112 H 110 H 104 H Pulse Rate [ 102 H From Monitor] Respiratory 20 20 21 Rate Blood Pressure 133/64 133/64 132/71 O2 Sat by Pulse 98 98 99 Oximetry 04/18/18 04/18/18 04/18/18 04:31 04:40 04:51 Temperature Pulse Rate 100 H 99 H 107 H Pulse Rate [ From Monitor] Respiratory 20 20 22 Rate Blood Pressure 132/71 134/77 134/77 O2 Sat by Pulse 100 100 97 Oximetry 04/18/18 04/18/18 04/18/18 05:00 05:11 05:20 Temperature Pulse Rate 103 H 102 H 102 H Pulse Rate [ From Monitor] Respiratory 21 22 21 Rate Blood Pressure 129/81 134/77 126/77 O2 Sat by Pulse 100 99 100 Oximetry 04/18/18 04/18/18 04/18/18 05:31 05:40 05:51 Temperature Pulse Rate 100 H 101 H 99 H Pulse Rate [ From Monitor] Respiratory 20 20 21 Rate Blood Pressure 126/77 135/82 135/82 O2 Sat by Pulse 100 100 100 Oximetry 04/18/18 04/18/18 04/18/18 06:01 06:11 06:20 Temperature Pulse Rate 123 H 110 H 109 H Pulse Rate [ From Monitor] Respiratory 26 H 25 H 23 Rate Blood Pressure 157/80 157/80 126/65 O2 Sat by Pulse 95 95 95 Oximetry 04/18/18 04/18/18 04/18/18 06:31 06:40 06:51 Temperature Pulse Rate 136 H 106 H 102 H Pulse Rate [ From Monitor] Respiratory 27 H 22 22 Rate Blood Pressure 126/65 126/57 126/57 O2 Sat by Pulse 96 96 97 Oximetry 04/18/18 04/18/18 04/18/18 07:00 07:31 08:00 Temperature 98.1 F Pulse Rate 105 H 96 H 102 H Pulse Rate [ 94 H From Monitor] Respiratory 28 H 21 22 Rate Blood Pressure 133/64 127/67 128/84 O2 Sat by Pulse 97 99 97 Oximetry 04/18/18 04/18/18 04/18/18 08:31 09:00 09:31 Temperature Pulse Rate 96 H 97 H 92 H Pulse Rate [ From Monitor] Respiratory 24 26 H 22 Rate Blood Pressure 133/88 125/76 122/73 O2 Sat by Pulse 99 97 98 Oximetry 04/18/18 04/18/18 04/18/18 10:00 10:31 11:00 Temperature Pulse Rate 98 H 97 H 96 H Pulse Rate [ From Monitor] Respiratory 18 22 20 Rate Blood Pressure 126/78 129/74 119/71 O2 Sat by Pulse 99 100 99 Oximetry 04/18/18 04/18/18 04/18/18 11:31 12:00 12:31 Temperature 98.9 F Pulse Rate 94 H 111 H 90 Pulse Rate [ From Monitor] Respiratory 22 18 22 Rate Blood Pressure 111/81 112/78 128/71 O2 Sat by Pulse 95 94 94 Oximetry 04/18/18 04/18/18 13:01 13:31 Temperature Pulse Rate 100 H 96 H Pulse Rate [ From Monitor] Respiratory 27 H 25 H Rate Blood Pressure 139/84 142/72 O2 Sat by Pulse 97 93 Oximetry Constitutional: other (young obese AAM, normocephalic and atraumatic without increased respiratory effort) Eyes: non-icteric ENT: oropharynx moist, other (extubated) Neck: supple, no lymphadenopathy, no JVD, other (no thyromegaly) Effort: mildly labored Ascultation: Bilateral: diminished breath sounds, rhonchi (scant) Percussion: Bilateral: not dull Cardiovascular: regular rate and rhythm, other (S1,S2, no murmurs, gallops or rubs) Gastrointestinal: normoactive bowel sounds, soft, non-tender, non-distended, other (No palpable HSM) Integumentary: normal, other (Femoral vascath and femoral CVC) Extremities: no cyanosis, no edema, pulses normal, no ischemia or petechiae Neurologic: non-focal exam (grossly), pupils equal and round, CN II-XII normal, motor strength normal and Psychiatric: mood appropriate CBC and BMP: 04/15/18 09:25 04/19/18 10:39 ABG, PT/INR, D-dimer: ABG POC ABG pH 7.443 (7.35-7.45) 04/17/18 05:42 POC ABG pCO2 48.3 (35-45) H 04/17/18 05:42 POC ABG pO2 68 (80-105) L 04/17/18 05:42 POC ABG HCO3 33.0 04/17/18 05:42 POC ABG Total CO2 34 04/17/18 05:42 POC ABG O2 Sat 94 04/17/18 05:42 Abnormal lab findings: Abnormal Labs 04/15/18 04/15/18 04/15/18 09:15 09:25 09:25 Lymph % (Auto) 8.7 L Lymph # 0.9 L Seg Neutrophils % 85.6 H Seg Neutrophils # 9.3 H POC ABG pH POC ABG pCO2 POC ABG pO2 Sodium 136 L Potassium Carbon Dioxide 15 L BUN Creatinine Glucose 133 H POC Glucose 110 H Calcium Magnesium AST Lactate Dehydrogenase Total Creatine Kinase Total Protein Albumin Salicylates Acetaminophen 04/15/18 04/15/18 04/15/18 10:54 10:57 10:57 Lymph % (Auto) Lymph # Seg Neutrophils % Seg Neutrophils # POC ABG pH POC ABG pCO2 POC ABG pO2 Sodium Potassium Carbon Dioxide BUN Creatinine Glucose POC Glucose Calcium Magnesium AST Lactate Dehydrogenase Total Creatine Kinase 190 H Total Protein Albumin Salicylates 104.5 H Acetaminophen < 5.0 L 04/15/18 04/15/18 04/15/18 14:16 15:45 18:17 Lymph % (Auto) Lymph # Seg Neutrophils % Seg Neutrophils # POC ABG pH 7.546 H 7.277 L POC ABG pCO2 14.8 L 54.1 H POC ABG pO2 112 H 153 H Sodium Potassium Carbon Dioxide BUN Creatinine Glucose POC Glucose Calcium Magnesium AST Lactate Dehydrogenase Total Creatine Kinase Total Protein Albumin Salicylates 107.9 H Acetaminophen 04/15/18 04/15/18 04/15/18 20:38 23:55 23:55 Lymph % (Auto) Lymph # Seg Neutrophils % Seg Neutrophils # POC ABG pH POC ABG pCO2 POC ABG pO2 Sodium Potassium 3.0 L D Carbon Dioxide 18 L BUN 21 H Creatinine 1.6 H D Glucose POC Glucose 110 H Calcium 6.3 L D Magnesium AST 85 H Lactate Dehydrogenase Total Creatine Kinase Total Protein 4.9 L Albumin 2.9 L Salicylates 50.3 H Acetaminophen 04/16/18 04/16/18 04/16/18 00:00 02:03 02:03 Lymph % (Auto) Lymph # Seg Neutrophils % Seg Neutrophils # POC ABG pH 7.517 H POC ABG pCO2 26.3 L POC ABG pO2 173 H Sodium Potassium 3.4 L Carbon Dioxide 17 L BUN 24 H Creatinine 1.8 H Glucose POC Glucose Calcium 6.4 L Magnesium AST Lactate Dehydrogenase Total Creatine Kinase Total Protein Albumin Salicylates 52.4 H Acetaminophen 04/16/18 04/16/18 04/16/18 04:57 06:06 06:20 Lymph % (Auto) Lymph # Seg Neutrophils % Seg Neutrophils # POC ABG pH POC ABG pCO2 34.9 L POC ABG pO2 Sodium Potassium Carbon Dioxide BUN Creatinine Glucose POC Glucose 121 H 136 H Calcium Magnesium AST Lactate Dehydrogenase Total Creatine Kinase Total Protein Albumin Salicylates Acetaminophen 04/16/18 04/16/18 04/16/18 06:34 06:34 07:08 Lymph % (Auto) Lymph # Seg Neutrophils % Seg Neutrophils # POC ABG pH POC ABG pCO2 POC ABG pO2 Sodium Potassium 3.2 L Carbon Dioxide BUN 29 H Creatinine 2.2 H Glucose 129 H POC Glucose 168 H Calcium 6.5 L Magnesium AST Lactate Dehydrogenase Total Creatine Kinase Total Protein Albumin Salicylates 49.2 H Acetaminophen 04/16/18 04/16/18 04/16/18 08:19 09:01 10:11 Lymph % (Auto) Lymph # Seg Neutrophils % Seg Neutrophils # POC ABG pH POC ABG pCO2 POC ABG pO2 Sodium Potassium Carbon Dioxide BUN Creatinine Glucose POC Glucose 121 H 166 H 133 H Calcium Magnesium AST Lactate Dehydrogenase Total Creatine Kinase Total Protein Albumin Salicylates Acetaminophen 04/16/18 04/16/18 04/16/18 10:42 10:42 10:42 Lymph % (Auto) Lymph # Seg Neutrophils % Seg Neutrophils # POC ABG pH POC ABG pCO2 POC ABG pO2 Sodium Potassium 2.8 L* Carbon Dioxide BUN 29 H Creatinine 2.1 H Glucose 171 H POC Glucose Calcium 5.8 L* Magnesium 1.40 L AST Lactate Dehydrogenase Total Creatine Kinase Total Protein Albumin Salicylates 45.2 H Acetaminophen 04/16/18 04/16/18 04/16/18 12:00 13:06 14:00 Lymph % (Auto) Lymph # Seg Neutrophils % Seg Neutrophils # POC ABG pH POC ABG pCO2 POC ABG pO2 Sodium Potassium Carbon Dioxide BUN Creatinine Glucose POC Glucose 134 H 133 H 151 H Calcium Magnesium AST Lactate Dehydrogenase Total Creatine Kinase Total Protein Albumin Salicylates Acetaminophen 04/16/18 04/16/18 04/16/18 15:48 17:15 17:53 Lymph % (Auto) Lymph # Seg Neutrophils % Seg Neutrophils # POC ABG pH POC ABG pCO2 POC ABG pO2 Sodium Potassium Carbon Dioxide BUN Creatinine Glucose POC Glucose 128 H 119 H 140 H Calcium Magnesium AST Lactate Dehydrogenase Total Creatine Kinase Total Protein Albumin Salicylates Acetaminophen 04/16/18 04/16/18 04/16/18 19:00 19:03 19:10 Lymph % (Auto) Lymph # Seg Neutrophils % Seg Neutrophils # POC ABG pH POC ABG pCO2 POC ABG pO2 Sodium Potassium 2.8 L* 3.0 L Carbon Dioxide BUN Creatinine Glucose 103 H POC Glucose Calcium 8.0 L D Magnesium 1.50 L AST Lactate Dehydrogenase 556 H Total Creatine Kinase Total Protein Albumin Salicylates Acetaminophen 04/16/18 04/16/18 04/16/18 19:21 20:21 21:35 Lymph % (Auto) Lymph # Seg Neutrophils % Seg Neutrophils # POC ABG pH POC ABG pCO2 POC ABG pO2 Sodium Potassium Carbon Dioxide BUN Creatinine Glucose POC Glucose 114 H 116 H 128 H Calcium Magnesium AST Lactate Dehydrogenase Total Creatine Kinase Total Protein Albumin Salicylates Acetaminophen 04/16/18 04/16/18 04/16/18 22:43 22:50 22:53 Lymph % (Auto) Lymph # Seg Neutrophils % Seg Neutrophils # POC ABG pH 7.471 H POC ABG pCO2 46.9 H POC ABG pO2 Sodium Potassium 2.7 L* Carbon Dioxide 31 H BUN Creatinine Glucose 113 H POC Glucose 114 H Calcium 7.6 L Magnesium AST Lactate Dehydrogenase Total Creatine Kinase Total Protein Albumin Salicylates Acetaminophen 04/17/18 04/17/18 04/17/18 01:23 01:32 02:23 Lymph % (Auto) Lymph # Seg Neutrophils % Seg Neutrophils # POC ABG pH POC ABG pCO2 POC ABG pO2 Sodium Potassium 2.7 L* Carbon Dioxide 33 H BUN Creatinine Glucose 126 H POC Glucose 125 H 140 H Calcium 7.1 L Magnesium AST Lactate Dehydrogenase Total Creatine Kinase Total Protein Albumin Salicylates Acetaminophen 04/17/18 04/17/18 04/17/18 03:21 04:37 05:42 Lymph % (Auto) Lymph # Seg Neutrophils % Seg Neutrophils # POC ABG pH POC ABG pCO2 48.3 H POC ABG pO2 68 L Sodium Potassium 3.0 L Carbon Dioxide 33 H BUN Creatinine Glucose POC Glucose 149 H Calcium 7.5 L Magnesium AST Lactate Dehydrogenase Total Creatine Kinase Total Protein Albumin Salicylates Acetaminophen 04/17/18 04/17/18 04/17/18 06:23 07:38 08:59 Lymph % (Auto) Lymph # Seg Neutrophils % Seg Neutrophils # POC ABG pH POC ABG pCO2 POC ABG pO2 Sodium Potassium Carbon Dioxide BUN Creatinine Glucose POC Glucose 113 H 113 H 132 H Calcium Magnesium AST Lactate Dehydrogenase Total Creatine Kinase Total Protein Albumin Salicylates Acetaminophen 04/17/18 04/17/18 04/17/18 11:05 11:52 15:50 Lymph % (Auto) Lymph # Seg Neutrophils % Seg Neutrophils # POC ABG pH POC ABG pCO2 POC ABG pO2 Sodium Potassium Carbon Dioxide BUN Creatinine Glucose POC Glucose 114 H 121 H 110 H Calcium Magnesium AST Lactate Dehydrogenase Total Creatine Kinase Total Protein Albumin Salicylates Acetaminophen 04/17/18 04/18/18 04/18/18 19:24 00:03 04:25 Lymph % (Auto) Lymph # Seg Neutrophils % Seg Neutrophils # POC ABG pH POC ABG pCO2 POC ABG pO2 Sodium Potassium 2.8 L* Carbon Dioxide 31 H BUN 5 L Creatinine Glucose POC Glucose 141 H 189 H Calcium 7.3 L Magnesium 1.60 L AST Lactate Dehydrogenase Total Creatine Kinase Total Protein Albumin Salicylates Acetaminophen 04/18/18 09:06 Lymph % (Auto) Lymph # Seg Neutrophils % Seg Neutrophils # POC ABG pH POC ABG pCO2 POC ABG pO2 Sodium Potassium Carbon Dioxide BUN Creatinine Glucose POC Glucose 113 H Calcium Magnesium AST Lactate Dehydrogenase Total Creatine Kinase Total Protein Albumin Salicylates Acetaminophen Chest x-ray: image reviewed (no new infiltrate) Allied health notes reviewed: nursing
--- NOTE | 2018-04-18 20:00 | Progress Note ---
Subjective - Reason for Consult Consult date: 04/18/18 Reason for consult: follow up - Chief Complaint Chief complaint: unintelligible 27-year-old male who presents after being brought in by EMS after patient was picked up at [facility]. The patient initially presented with a complaint of anxiety. He left the ER and went over to [facility], called 911, and EMS stated that he was sweating. He is in the critical care unit. His nurse reports him to be "impulsive." She denies him to be physically aggressive. - Exam Narrative exam: Unable to complete the MSE. He is incoherent and unable to participate in interview. Assessment and Plan Impression: Hx of Bipolar DO per collateral information from his mother Chelsea Nguyen. Elevated Salicylate levels (overdose). Recommendation/Plan: Continue 1013 and assess the patient in 24 hours. Mental Status Exam - Vital signs Last Vital Signs Temp 99.5 F 04/18/18 16:00 Pulse 120 H 04/18/18 18:00 Resp 27 H 04/18/18 18:00 BP 150/96 04/18/18 18:00 Pulse Ox 99 04/18/18 18:00
[2018-04-19] MEDS: HEPARIN SUB-Q SCH ×3 (07:02→21:16)
--- NOTE | 2018-04-19 07:56 | Progress Note ---
Assessment and Plan -Acute hypoxemic respiratory failure, extubated -Salicylate poisoning -Metabolic acidosis -Acute encephalopathy -Acute renal failure -SIRS, does not appear to be sepsis related -h/o Bipolar disorder -Unclear as to intentional OD -Obesity - Psych evaluation for disposition - advance diet - discontinued groin CVL - stop hourly accuchecks - ASA levels reducing - discontinued bicarbonate infusion - PT/OT evaluate and treat - VAP bundle addressed - Stopped serial ABG's - Continue to monitor renal function - CXRs prn at this point - VTE prophylaxis - Stress ulcer prophylaxis - Monitor off antibiotics - Agitation management - Replete electrolytes as indicated FULL CODE STATUS Subjective Date of service: 04/19/18 Principal diagnosis: Acute hypoxemic respiratory failure; Salicylate poisoning ; THOMAS Objective Vital Signs - 12hr 04/18/18 04/18/18 04/18/18 20:00 20:31 21:01 Pulse Rate 98 H 106 H 106 H Respiratory 22 18 26 H Rate Blood Pressure O2 Sat by Pulse 99 98 99 Oximetry 04/18/18 04/18/18 04/18/18 21:31 22:01 22:31 Pulse Rate 105 H 100 H 109 H Respiratory 27 H 18 24 Rate Blood Pressure 124/85 O2 Sat by Pulse 98 99 100 Oximetry 04/18/18 04/18/18 04/18/18 23:00 23:31 23:38 Pulse Rate 120 H 104 H 96 H Respiratory 16 22 Rate Blood Pressure 85/69 O2 Sat by Pulse 99 98 Oximetry 04/19/18 04/19/18 04/19/18 00:01 00:20 06:42 Pulse Rate 102 H 91 H Respiratory 24 Rate Blood Pressure 131/83 141/87 O2 Sat by Pulse 100 98 Oximetry Constitutional: other (young obese AAM, normocephalic and atraumatic without increased respiratory effort) Eyes: non-icteric ENT: oropharynx moist, other (ETT 23 cm RICK) Neck: supple, no lymphadenopathy, no JVD Effort: mildly labored Ascultation: Bilateral: diminished breath sounds, rhonchi (scant) Percussion: Bilateral: not dull Cardiovascular: regular rate and rhythm, other (S1,S2, no murmurs, gallops or rubs) Gastrointestinal: normoactive bowel sounds, soft, non-tender, non-distended, other (No palpable HSM) Integumentary: normal, other (Femoral vascath and femoral CVC) Extremities: no cyanosis, no edema, pulses normal, no ischemia or petechiae Neurologic: non-focal exam (grossly), pupils equal and round, CN II-XII normal, motor strength normal and Psychiatric: other (deppressed) CBC and BMP: 04/15/18 09:25 04/21/18 05:43 ABG, PT/INR, D-dimer: ABG POC ABG pH 7.443 (7.35-7.45) 04/17/18 05:42 POC ABG pCO2 48.3 (35-45) H 04/17/18 05:42 POC ABG pO2 68 (80-105) L 04/17/18 05:42 POC ABG HCO3 33.0 04/17/18 05:42 POC ABG Total CO2 34 04/17/18 05:42 POC ABG O2 Sat 94 04/17/18 05:42 Abnormal lab findings: Abnormal Labs 04/15/18 04/15/18 04/15/18 09:15 09:25 09:25 Lymph % (Auto) 8.7 L Lymph # 0.9 L Seg Neutrophils % 85.6 H Seg Neutrophils # 9.3 H POC ABG pH POC ABG pCO2 POC ABG pO2 Sodium 136 L Potassium Carbon Dioxide 15 L BUN Creatinine Glucose 133 H POC Glucose 110 H Calcium Magnesium AST Lactate Dehydrogenase Total Creatine Kinase Total Protein Albumin Salicylates Acetaminophen 04/15/18 04/15/18 04/15/18 10:54 10:57 10:57 Lymph % (Auto) Lymph # Seg Neutrophils % Seg Neutrophils # POC ABG pH POC ABG pCO2 POC ABG pO2 Sodium Potassium Carbon Dioxide BUN Creatinine Glucose POC Glucose Calcium Magnesium AST Lactate Dehydrogenase Total Creatine Kinase 190 H Total Protein Albumin Salicylates 104.5 H Acetaminophen < 5.0 L 04/15/18 04/15/18 04/15/18 14:16 15:45 18:17 Lymph % (Auto) Lymph # Seg Neutrophils % Seg Neutrophils # POC ABG pH 7.546 H 7.277 L POC ABG pCO2 14.8 L 54.1 H POC ABG pO2 112 H 153 H Sodium Potassium Carbon Dioxide BUN Creatinine Glucose POC Glucose Calcium Magnesium AST Lactate Dehydrogenase Total Creatine Kinase Total Protein Albumin Salicylates 107.9 H Acetaminophen 04/15/18 04/15/18 04/15/18 20:38 23:55 23:55 Lymph % (Auto) Lymph # Seg Neutrophils % Seg Neutrophils # POC ABG pH POC ABG pCO2 POC ABG pO2 Sodium Potassium 3.0 L D Carbon Dioxide 18 L BUN 21 H Creatinine 1.6 H D Glucose POC Glucose 110 H Calcium 6.3 L D Magnesium AST 85 H Lactate Dehydrogenase Total Creatine Kinase Total Protein 4.9 L Albumin 2.9 L Salicylates 50.3 H Acetaminophen 04/16/18 04/16/18 04/16/18 00:00 02:03 02:03 Lymph % (Auto) Lymph # Seg Neutrophils % Seg Neutrophils # POC ABG pH 7.517 H POC ABG pCO2 26.3 L POC ABG pO2 173 H Sodium Potassium 3.4 L Carbon Dioxide 17 L BUN 24 H Creatinine 1.8 H Glucose POC Glucose Calcium 6.4 L Magnesium AST Lactate Dehydrogenase Total Creatine Kinase Total Protein Albumin Salicylates 52.4 H Acetaminophen 04/16/18 04/16/18 04/16/18 04:57 06:06 06:20 Lymph % (Auto) Lymph # Seg Neutrophils % Seg Neutrophils # POC ABG pH POC ABG pCO2 34.9 L POC ABG pO2 Sodium Potassium Carbon Dioxide BUN Creatinine Glucose POC Glucose 121 H 136 H Calcium Magnesium AST Lactate Dehydrogenase Total Creatine Kinase Total Protein Albumin Salicylates Acetaminophen 04/16/18 04/16/18 04/16/18 06:34 06:34 07:08 Lymph % (Auto) Lymph # Seg Neutrophils % Seg Neutrophils # POC ABG pH POC ABG pCO2 POC ABG pO2 Sodium Potassium 3.2 L Carbon Dioxide BUN 29 H Creatinine 2.2 H Glucose 129 H POC Glucose 168 H Calcium 6.5 L Magnesium AST Lactate Dehydrogenase Total Creatine Kinase Total Protein Albumin Salicylates 49.2 H Acetaminophen 04/16/18 04/16/18 04/16/18 08:19 09:01 10:11 Lymph % (Auto) Lymph # Seg Neutrophils % Seg Neutrophils # POC ABG pH POC ABG pCO2 POC ABG pO2 Sodium Potassium Carbon Dioxide BUN Creatinine Glucose POC Glucose 121 H 166 H 133 H Calcium Magnesium AST Lactate Dehydrogenase Total Creatine Kinase Total Protein Albumin Salicylates Acetaminophen 04/16/18 04/16/18 04/16/18 10:42 10:42 10:42 Lymph % (Auto) Lymph # Seg Neutrophils % Seg Neutrophils # POC ABG pH POC ABG pCO2 POC ABG pO2 Sodium Potassium 2.8 L* Carbon Dioxide BUN 29 H Creatinine 2.1 H Glucose 171 H POC Glucose Calcium 5.8 L* Magnesium 1.40 L AST Lactate Dehydrogenase Total Creatine Kinase Total Protein Albumin Salicylates 45.2 H Acetaminophen 04/16/18 04/16/18 04/16/18 12:00 13:06 14:00 Lymph % (Auto) Lymph # Seg Neutrophils % Seg Neutrophils # POC ABG pH POC ABG pCO2 POC ABG pO2 Sodium Potassium Carbon Dioxide BUN Creatinine Glucose POC Glucose 134 H 133 H 151 H Calcium Magnesium AST Lactate Dehydrogenase Total Creatine Kinase Total Protein Albumin Salicylates Acetaminophen 04/16/18 04/16/18 04/16/18 15:48 17:15 17:53 Lymph % (Auto) Lymph # Seg Neutrophils % Seg Neutrophils # POC ABG pH POC ABG pCO2 POC ABG pO2 Sodium Potassium Carbon Dioxide BUN Creatinine Glucose POC Glucose 128 H 119 H 140 H Calcium Magnesium AST Lactate Dehydrogenase Total Creatine Kinase Total Protein Albumin Salicylates Acetaminophen 04/16/18 04/16/18 04/16/18 19:00 19:03 19:10 Lymph % (Auto) Lymph # Seg Neutrophils % Seg Neutrophils # POC ABG pH POC ABG pCO2 POC ABG pO2 Sodium Potassium 2.8 L* 3.0 L Carbon Dioxide BUN Creatinine Glucose 103 H POC Glucose Calcium 8.0 L D Magnesium 1.50 L AST Lactate Dehydrogenase 556 H Total Creatine Kinase Total Protein Albumin Salicylates Acetaminophen 04/16/18 04/16/18 04/16/18 19:21 20:21 21:35 Lymph % (Auto) Lymph # Seg Neutrophils % Seg Neutrophils # POC ABG pH POC ABG pCO2 POC ABG pO2 Sodium Potassium Carbon Dioxide BUN Creatinine Glucose POC Glucose 114 H 116 H 128 H Calcium Magnesium AST Lactate Dehydrogenase Total Creatine Kinase Total Protein Albumin Salicylates Acetaminophen 04/16/18 04/16/18 04/16/18 22:43 22:50 22:53 Lymph % (Auto) Lymph # Seg Neutrophils % Seg Neutrophils # POC ABG pH 7.471 H POC ABG pCO2 46.9 H POC ABG pO2 Sodium Potassium 2.7 L* Carbon Dioxide 31 H BUN Creatinine Glucose 113 H POC Glucose 114 H Calcium 7.6 L Magnesium AST Lactate Dehydrogenase Total Creatine Kinase Total Protein Albumin Salicylates Acetaminophen 09/21/18 09/21/18 09/21/18 01:23 01:32 02:23 Lymph % (Auto) Lymph # Seg Neutrophils % Seg Neutrophils # POC ABG pH POC ABG pCO2 POC ABG pO2 Sodium Potassium 2.7 L* Carbon Dioxide 33 H BUN Creatinine Glucose 126 H POC Glucose 125 H 140 H Calcium 7.1 L Magnesium AST Lactate Dehydrogenase Total Creatine Kinase Total Protein Albumin Salicylates Acetaminophen 04/17/18 04/17/18 04/17/18 03:21 04:37 05:42 Lymph % (Auto) Lymph # Seg Neutrophils % Seg Neutrophils # POC ABG pH POC ABG pCO2 48.3 H POC ABG pO2 68 L Sodium Potassium 3.0 L Carbon Dioxide 33 H BUN Creatinine Glucose POC Glucose 149 H Calcium 7.5 L Magnesium AST Lactate Dehydrogenase Total Creatine Kinase Total Protein Albumin Salicylates Acetaminophen 04/17/18 04/17/18 04/17/18 06:23 07:38 08:59 Lymph % (Auto) Lymph # Seg Neutrophils % Seg Neutrophils # POC ABG pH POC ABG pCO2 POC ABG pO2 Sodium Potassium Carbon Dioxide BUN Creatinine Glucose POC Glucose 113 H 113 H 132 H Calcium Magnesium AST Lactate Dehydrogenase Total Creatine Kinase Total Protein Albumin Salicylates Acetaminophen 04/17/18 04/17/18 04/17/18 11:05 11:52 15:50 Lymph % (Auto) Lymph # Seg Neutrophils % Seg Neutrophils # POC ABG pH POC ABG pCO2 POC ABG pO2 Sodium Potassium Carbon Dioxide BUN Creatinine Glucose POC Glucose 114 H 121 H 110 H Calcium Magnesium AST Lactate Dehydrogenase Total Creatine Kinase Total Protein Albumin Salicylates Acetaminophen 04/17/18 04/18/18 04/18/18 19:24 00:03 04:25 Lymph % (Auto) Lymph # Seg Neutrophils % Seg Neutrophils # POC ABG pH POC ABG pCO2 POC ABG pO2 Sodium Potassium 2.8 L* Carbon Dioxide 31 H BUN 5 L Creatinine Glucose POC Glucose 141 H 189 H Calcium 7.3 L Magnesium 1.60 L AST Lactate Dehydrogenase Total Creatine Kinase Total Protein Albumin Salicylates Acetaminophen 04/18/18 04/18/18 09:06 18:48 Lymph % (Auto) Lymph # Seg Neutrophils % Seg Neutrophils # POC ABG pH POC ABG pCO2 POC ABG pO2 Sodium Potassium 3.4 L D Carbon Dioxide BUN Creatinine Glucose POC Glucose 113 H Calcium Magnesium AST Lactate Dehydrogenase Total Creatine Kinase Total Protein Albumin Salicylates Acetaminophen Allied health notes reviewed: nursing
--- NOTE | 2018-04-19 10:02 | Progress Note ---
Assessment and Plan Assessment and plan: Suicidal attempt 1013, mental health consult 1. s/p extubation day 2 (O2 sat stable in 3L via NC) 2. acute toxic Encephalopathy/lethargy due to aspirin od, improving 3. Salicylate poisoning syndrome Continue Poison Control recommendation received HD and IV bicarbonate, improved 4. Hypokalemia and hypokalemia replaced 5. bipolar disorder mental health consult History Interval history: patient remains disorganized denies cp, sob, vomiting, or fever Hospitalist Physical - Constitutional Vitals: Temp Pulse Resp BP Pulse Ox 99.5 F 91 H 24 141/87 98 04/18/18 16:00 04/19/18 06:42 04/19/18 00:01 04/19/18 06:42 04/19/18 06:42 General appearance: Present: well-nourished - EENT Eyes: Present: PERRL ENT: hearing intact - Neck Neck: Present: supple - Respiratory Respiratory effort: normal Respiratory: bilateral: CTA - Cardiovascular Rhythm: regular Heart Sounds: Present: S1 & S2 - Extremities Extremities: no ischemia Peripheral Pulses: within normal limits - Abdominal General gastrointestinal: soft, non-tender - Integumentary Integumentary: Present: clear, warm - Psychiatric Psychiatric: no appropriate mood/affect, no intact judgment & insight, other ( disorganized) - Neurologic Neurologic: CNII-XII intact, no focal deficits, moves all extremities Results - Labs CBC & Chem 7: 04/15/18 09:25 04/21/18 05:43 Labs: Laboratory Last Values WBC 10.9 K/mm3 (4.5-11.0) 04/15/18 09:25 RBC 4.82 M/mm3 (3.65-5.03) 04/15/18 09:25 Hgb 14.0 gm/dl (11.8-15.2) 04/15/18 09:25 Hct 42.3 % (35.5-45.6) 04/15/18 09:25 MCV 88 fl (84-94) 04/15/18 09:25 MCH 29 pg (28-32) 04/15/18 09:25 MCHC 33 % (32-34) 04/15/18 09:25 RDW 14.0 % (13.2-15.2) 04/15/18 09:25 Plt Count 343 K/mm3 (140-440) 04/15/18 09:25 Lymph % (Auto) 8.7 % (13.4-35.0) L 04/15/18 09:25 Harper % (Auto) 5.0 % (0.0-7.3) 04/15/18 09:25 Eos % (Auto) 0.2 % (0.0-4.3) 04/15/18 09:25 Baso % (Auto) 0.5 % (0.0-1.8) 04/15/18 09:25 Lymph # 0.9 K/mm3 (1.2-5.4) L 04/15/18 09:25 Harper # 0.5 K/mm3 (0.0-0.8) 04/15/18 09:25 Eos # 0.0 K/mm3 (0.0-0.4) 04/15/18 09:25 Baso # 0.1 K/mm3 (0.0-0.1) 04/15/18 09:25 Seg Neutrophils % 85.6 % (40.0-70.0) H 04/15/18 09:25 Seg Neutrophils # 9.3 K/mm3 (1.8-7.7) H 04/15/18 09:25 POC ABG pH 7.443 (7.35-7.45) 04/17/18 05:42 POC ABG pCO2 48.3 (35-45) H 04/17/18 05:42 POC ABG pO2 68 (80-105) L 04/17/18 05:42 POC ABG HCO3 33.0 04/17/18 05:42 POC ABG Total CO2 34 04/17/18 05:42 POC ABG O2 Sat 94 04/17/18 05:42 POC ABG Base Excess 9 04/17/18 05:42 FiO2 30 % 04/17/18 05:42 Sodium 145 mmol/L (137-145) 04/18/18 04:25 Potassium 3.4 mmol/L (3.6-5.0) L D 04/18/18 18:48 Chloride 106.9 mmol/L (98-107) 04/18/18 04:25 Carbon Dioxide 31 mmol/L (22-30) H 04/18/18 04:25 Anion Gap 10 mmol/L 04/18/18 04:25 BUN 5 mg/dL (9-20) L 04/18/18 04:25 Creatinine 0.9 mg/dL (0.8-1.5) 04/18/18 04:25 Estimated GFR > 60 ml/min 04/18/18 04:25 BUN/Creatinine Ratio 6 % 04/18/18 04:25 Glucose 87 mg/dL (75-100) 04/18/18 04:25 POC Glucose 90 (70-105) 04/18/18 16:28 Lactic Acid 1.60 mmol/L (0.7-2.0) 04/16/18 10:42 Calcium 7.3 mg/dL (8.4-10.2) L 04/18/18 04:25 Magnesium 1.60 mg/dL (1.7-2.3) L 04/18/18 04:25 Total Bilirubin < 0.20 mg/dL (0.1-1.2) 04/15/18 23:55 AST 85 units/L (5-40) H 04/15/18 23:55 ALT 38 units/L (7-56) 04/15/18 23:55 Alkaline Phosphatase 42 units/L (35-129) 04/15/18 23:55 Lactate Dehydrogenase 556 units/L (91-180) H 04/16/18 19:00 Total Creatine Kinase 190 units/L (55-170) H 04/15/18 10:57 Troponin T < 0.010 ng/mL (0.00-0.029) 04/15/18 10:57 Total Protein 4.9 g/dL (6.3-8.2) L 04/15/18 23:55 Albumin 2.9 g/dL (3.9-5) L 04/15/18 23:55 Albumin/Globulin Ratio 1.5 % 04/15/18 23:55 Urine Color Yellow (Yellow) 04/15/18 Unknown Urine Turbidity Clear (Clear) 04/15/18 Unknown Urine pH 6.0 (5.0-7.0) 04/15/18 Unknown Ur Specific [place] 1.015 (1.003-1.030) 04/15/18 Unknown Urine Protein 100 mg/dl mg/dL (Negative) 04/15/18 Unknown Urine Glucose (UA) 50 mg/dL (Negative) 04/15/18 Unknown Urine Ketones 20 mg/dL (Negative) 04/15/18 Unknown Urine Blood Neg (Negative) 04/15/18 Unknown Urine Nitrite Neg (Negative) 04/15/18 Unknown Urine Bilirubin Neg (Negative) 04/15/18 Unknown Urine Urobilinogen < 2.0 mg/dL (<2.0) 04/15/18 Unknown Ur Leukocyte Esterase Neg (Negative) 04/15/18 Unknown Urine WBC (Auto) 4.0 /HPF (0.0-6.0) 04/15/18 Unknown Urine RBC (Auto) 2.0 /HPF (0.0-6.0) 04/15/18 Unknown Salicylates 15.1 mg/dL (2.8-20.0) 04/17/18 04:37 Urine Opiates Screen Presumptive negative 04/15/18 Unknown Urine Methadone Screen Presumptive negative 04/15/18 Unknown Acetaminophen < 5.0 ug/mL (10.0-30.0) L 04/15/18 10:54 Ur Barbiturates Screen Presumptive negative 04/15/18 Unknown Ur Phencyclidine Scrn Presumptive negative 04/15/18 Unknown Ur Amphetamines Screen Presumptive negative 04/15/18 Unknown U Benzodiazepines Scrn Presumptive negative 04/15/18 Unknown Urine Cocaine Screen Presumptive negative 04/15/18 Unknown U Marijuana (THC) Screen Presumptive negative 04/15/18 Unknown Drugs of Abuse Note Disclamer 04/15/18 Unknown Plasma/Serum Alcohol < 0.01 % (0-0.07) 04/15/18 10:56 Hep Bs Antigen Non-reactive (Negative) 04/15/18 15:45 Hep B Core IgM Ab Non-reactive (NonReactive) 04/15/18 15:45 Hepatitis C Antibody Non-reactive (NonReactive) 04/15/18 15:45
[2018-04-19 11:48] LABS: BUN/Creatinine Ratio 12; Blood Urea Nitrogen 7 mg/dL (9-20); Hemolysis Index 0
[2018-04-19] MEDS: PEPCID IV SCH ×2 (12:36→21:55)
[2018-04-19] MEDS: SODIUM CHLORIDE FLUSH SYRINGE 10 ML IV SCH ×2 (12:37→21:25)
--- NOTE | 2018-04-19 18:49 | Progress Note ---
Assessment and Plan Impression: * Salicylate toxicity secondary to intention overdose * Acute kidney injury secondary to #1 * Metabolic acidosis/respiratory alkalosis secondary to #1 * Hypokalemia * Bipolar disorder Plan: * No further indication for dialysis at present - last treatment was 3 days ago * Femoral vas cath removed yesterday * Replete lytes prn * Avoid potential nephrotoxins * Dose medications for renal function * Will follow peripherally Subjective Date of service: 04/19/18 Principal diagnosis: Acute hypoxemic respiratory failure; Salicylate poisoning ; THOMAS Interval history: Patient transferred to floor. Objective - Vital Signs Vital signs: Vital Signs - 12hr 04/19/18 04/19/18 04/19/18 10:00 12:36 17:35 Temperature 98.7 F 99.3 F Pulse Rate 87 93 H Respiratory 16 18 Rate Blood Pressure 135/92 119/73 O2 Sat by Pulse 100 96 100 Oximetry - General Appearance General appearance: well-developed, well-nourished EENT: ATNC Respiratory: Present: Clear to Ascultation Cardiology: regular, S1S2 Gastrointestinal: normal, no tenderness, no distended Integumentary: no rash, warm and dry Musculoskeletal: other (no edema) Psychiatric: cooperative - Lab 04/15/18 09:25 04/19/18 10:39 Most recent lab results Calcium 8.0 mg/dL (8.4-10.2) L 04/19/18 10:39 Magnesium 1.70 mg/dL (1.7-2.3) 04/19/18 10:39
[2018-04-19] MEDS: NACL 0.9% 1000 ML 1,000 ML IV SCH (19:24)
--- NOTE | 2018-04-19 19:29 | Progress Note ---
Subjective - Reason for Consult Consult date: 04/19/18 Reason for consult: follow up - Chief Complaint Chief complaint: "panic attacks" 27-year-old male who presents after being brought in by EMS after patient was picked up at [facility]. The patient initially presented with a complaint of anxiety. He left the ER and went over to [facility], called 911, and EMS stated that he was sweating. He was in the critical care unit and now the medical floor for aspirin overdose. He is on 1013. He is disorganized in thought process and was able to provide some information. He states he took invega sustenna but cannot remember how long ago. He denies having schizophrenia or bipolar but states he was told that previously. He states he has panic attacks and denies depression. He cannot explain why he overdosed on aspirin. - Exam Narrative exam: Unable to complete the MSE. He is disorganized in thought process. Assessment and Plan Impression: Hx of Bipolar DO per collateral information from his mother Chelsea Nguyen. Elevated Salicylate levels (overdose)-now normal levels. Recommendation/Plan: Continue 1013 and transfer to inpatient psychiatric facility once medically cleared. start zyprexa 5mg hs for psychosis Mental Status Exam - Vital signs Last Vital Signs Temp 99.3 F 04/19/18 17:35 Pulse 93 H 04/19/18 17:35 Resp 18 04/19/18 17:35 BP 119/73 04/19/18 17:35 Pulse Ox 100 04/19/18 17:35
[2018-04-19] MEDS: PROVENTIL IH PRN (20:55)
[2018-04-20 07:18] LABS: Hepatitis A Antibody IgM NonReactive (NonReactive)
[2018-04-20] MEDS: PEPCID IV SCH ×2 (12:00→21:27)
[2018-04-20] MEDS: HEPARIN SUB-Q SCH ×3 (12:00→21:28)
[2018-04-20] MEDS: SODIUM CHLORIDE FLUSH SYRINGE 10 ML IV SCH ×2 (12:01→21:28)
--- NOTE | 2018-04-20 13:35 | Progress Note ---
Assessment and Plan Acute hypoxemic respiratory failure Salicylate poisoning Metabolic acidosis Acute encephalopathy Acute renal failure SIRS, does not appear to be sepsis related h/o Bipolar disorder Unclear as to intentional OD Obesity Hypokelemia - Psych evaluation for disposition - advance diet - discontinued groin CVL - stopped hourly accuchecks - ASA levels reducing - discontinued bicarbonate infusion - PT/OT evaluate and treat - VAP bundle addressed - Stopped serial ABG's - Continue to monitor renal function - CXRs prn at this point - VTE prophylaxis - Stress ulcer prophylaxis - Follow blood cultures, sputum and urine cultures - Discontinued antibiotics - Agitation management - Replete electrolytes as indicated ....... FULL CODE STATUS Subjective Date of service: 04/20/18 Principal diagnosis: Acute hypoxemic respiratory failure; Salicylate poisoning ; THOMAS Interval history: Patient is seen today for: Acute hypoxemic respiratory failure; Salicylate poisoning; Metabolic acidosis; Acute encephalopathy; Acute renal failure Seen and examined at bedside; 24hour events reviewed; nursing and respiratory care staff consulted; no adverse overnight events reported to me; doing much better; resting peacefully in bed; sitter watching; not agitated; wants to know when he can go home; making urine Objective Vital Signs - 12hr 04/20/18 05:30 Temperature 98.6 F Pulse Rate 91 H Respiratory 18 Rate Blood Pressure 131/74 O2 Sat by Pulse 96 Oximetry Constitutional: no acute distress, other (young obese AAM, normocephalic and atraumatic without increased respiratory effort) Eyes: non-icteric ENT: oropharynx moist, other (extubated) Neck: supple, no lymphadenopathy, no JVD, other (no thyromegaly) Effort: mildly labored Ascultation: Bilateral: diminished breath sounds, rhonchi (scant) Percussion: Bilateral: not dull Cardiovascular: regular rate and rhythm, other (S1,S2, no murmurs, gallops or rubs) Gastrointestinal: normoactive bowel sounds, soft, non-tender, non-distended, other (No palpable HSM) Integumentary: normal, other (Femoral vascath and femoral CVC) Extremities: no cyanosis, no edema, pulses normal, no ischemia or petechiae Neurologic: non-focal exam (grossly), pupils equal and round, CN II-XII normal, motor strength normal and Psychiatric: mood appropriate, affect normal CBC and BMP: 04/15/18 09:25 04/21/18 05:43 ABG, PT/INR, D-dimer: ABG POC ABG pH 7.443 (7.35-7.45) 04/17/18 05:42 POC ABG pCO2 48.3 (35-45) H 04/17/18 05:42 POC ABG pO2 68 (80-105) L 04/17/18 05:42 POC ABG HCO3 33.0 04/17/18 05:42 POC ABG Total CO2 34 04/17/18 05:42 POC ABG O2 Sat 94 04/17/18 05:42 Abnormal lab findings: Abnormal Labs 04/15/18 04/15/18 04/15/18 09:15 09:25 09:25 Lymph % (Auto) 8.7 L Lymph # 0.9 L Seg Neutrophils % 85.6 H Seg Neutrophils # 9.3 H POC ABG pH POC ABG pCO2 POC ABG pO2 Sodium 136 L Potassium Chloride Carbon Dioxide 15 L BUN Creatinine Glucose 133 H POC Glucose 110 H Calcium Magnesium AST Lactate Dehydrogenase Total Creatine Kinase Total Protein Albumin Salicylates Acetaminophen 04/15/18 04/15/18 04/15/18 10:54 10:57 10:57 Lymph % (Auto) Lymph # Seg Neutrophils % Seg Neutrophils # POC ABG pH POC ABG pCO2 POC ABG pO2 Sodium Potassium Chloride Carbon Dioxide BUN Creatinine Glucose POC Glucose Calcium Magnesium AST Lactate Dehydrogenase Total Creatine Kinase 190 H Total Protein Albumin Salicylates 104.5 H Acetaminophen < 5.0 L 04/15/18 04/15/18 04/15/18 14:16 15:45 18:17 Lymph % (Auto) Lymph # Seg Neutrophils % Seg Neutrophils # POC ABG pH 7.546 H 7.277 L POC ABG pCO2 14.8 L 54.1 H POC ABG pO2 112 H 153 H Sodium Potassium Chloride Carbon Dioxide BUN Creatinine Glucose POC Glucose Calcium Magnesium AST Lactate Dehydrogenase Total Creatine Kinase Total Protein Albumin Salicylates 107.9 H Acetaminophen 04/15/18 04/15/18 04/15/18 20:38 23:55 23:55 Lymph % (Auto) Lymph # Seg Neutrophils % Seg Neutrophils # POC ABG pH POC ABG pCO2 POC ABG pO2 Sodium Potassium 3.0 L D Chloride Carbon Dioxide 18 L BUN 21 H Creatinine 1.6 H D Glucose POC Glucose 110 H Calcium 6.3 L D Magnesium AST 85 H Lactate Dehydrogenase Total Creatine Kinase Total Protein 4.9 L Albumin 2.9 L Salicylates 50.3 H Acetaminophen 04/16/18 04/16/18 04/16/18 00:00 02:03 02:03 Lymph % (Auto) Lymph # Seg Neutrophils % Seg Neutrophils # POC ABG pH 7.517 H POC ABG pCO2 26.3 L POC ABG pO2 173 H Sodium Potassium 3.4 L Chloride Carbon Dioxide 17 L BUN 24 H Creatinine 1.8 H Glucose POC Glucose Calcium 6.4 L Magnesium AST Lactate Dehydrogenase Total Creatine Kinase Total Protein Albumin Salicylates 52.4 H Acetaminophen 04/16/18 04/16/18 04/16/18 04:57 06:06 06:20 Lymph % (Auto) Lymph # Seg Neutrophils % Seg Neutrophils # POC ABG pH POC ABG pCO2 34.9 L POC ABG pO2 Sodium Potassium Chloride Carbon Dioxide BUN Creatinine Glucose POC Glucose 121 H 136 H Calcium Magnesium AST Lactate Dehydrogenase Total Creatine Kinase Total Protein Albumin Salicylates Acetaminophen 04/16/18 04/16/18 04/16/18 06:34 06:34 07:08 Lymph % (Auto) Lymph # Seg Neutrophils % Seg Neutrophils # POC ABG pH POC ABG pCO2 POC ABG pO2 Sodium Potassium 3.2 L Chloride Carbon Dioxide BUN 29 H Creatinine 2.2 H Glucose 129 H POC Glucose 168 H Calcium 6.5 L Magnesium AST Lactate Dehydrogenase Total Creatine Kinase Total Protein Albumin Salicylates 49.2 H Acetaminophen 04/16/18 04/16/18 04/16/18 08:19 09:01 10:11 Lymph % (Auto) Lymph # Seg Neutrophils % Seg Neutrophils # POC ABG pH POC ABG pCO2 POC ABG pO2 Sodium Potassium Chloride Carbon Dioxide BUN Creatinine Glucose POC Glucose 121 H 166 H 133 H Calcium Magnesium AST Lactate Dehydrogenase Total Creatine Kinase Total Protein Albumin Salicylates Acetaminophen 04/16/18 04/16/18 04/16/18 10:42 10:42 10:42 Lymph % (Auto) Lymph # Seg Neutrophils % Seg Neutrophils # POC ABG pH POC ABG pCO2 POC ABG pO2 Sodium Potassium 2.8 L* Chloride Carbon Dioxide BUN 29 H Creatinine 2.1 H Glucose 171 H POC Glucose Calcium 5.8 L* Magnesium 1.40 L AST Lactate Dehydrogenase Total Creatine Kinase Total Protein Albumin Salicylates 45.2 H Acetaminophen 0904/16/18 04/16/18 12:00 13:06 14:00 Lymph % (Auto) Lymph # Seg Neutrophils % Seg Neutrophils # POC ABG pH POC ABG pCO2 POC ABG pO2 Sodium Potassium Chloride Carbon Dioxide BUN Creatinine Glucose POC Glucose 134 H 133 H 151 H Calcium Magnesium AST Lactate Dehydrogenase Total Creatine Kinase Total Protein Albumin Salicylates Acetaminophen 04/16/18 04/16/18 04/16/18 15:48 17:15 17:53 Lymph % (Auto) Lymph # Seg Neutrophils % Seg Neutrophils # POC ABG pH POC ABG pCO2 POC ABG pO2 Sodium Potassium Chloride Carbon Dioxide BUN Creatinine Glucose POC Glucose 128 H 119 H 140 H Calcium Magnesium AST Lactate Dehydrogenase Total Creatine Kinase Total Protein Albumin Salicylates Acetaminophen 04/16/18 04/16/18 04/16/18 19:00 19:03 19:10 Lymph % (Auto) Lymph # Seg Neutrophils % Seg Neutrophils # POC ABG pH POC ABG pCO2 POC ABG pO2 Sodium Potassium 2.8 L* 3.0 L Chloride Carbon Dioxide BUN Creatinine Glucose 103 H POC Glucose Calcium 8.0 L D Magnesium 1.50 L AST Lactate Dehydrogenase 556 H Total Creatine Kinase Total Protein Albumin Salicylates Acetaminophen 04/16/18 04/16/18 04/16/18 19:21 20:21 21:35 Lymph % (Auto) Lymph # Seg Neutrophils % Seg Neutrophils # POC ABG pH POC ABG pCO2 POC ABG pO2 Sodium Potassium Chloride Carbon Dioxide BUN Creatinine Glucose POC Glucose 114 H 116 H 128 H Calcium Magnesium AST Lactate Dehydrogenase Total Creatine Kinase Total Protein Albumin Salicylates Acetaminophen 04/16/18 04/16/18 04/16/18 22:43 22:50 22:53 Lymph % (Auto) Lymph # Seg Neutrophils % Seg Neutrophils # POC ABG pH 7.471 H POC ABG pCO2 46.9 H POC ABG pO2 Sodium Potassium 2.7 L* Chloride Carbon Dioxide 31 H BUN Creatinine Glucose 113 H POC Glucose 114 H Calcium 7.6 L Magnesium AST Lactate Dehydrogenase Total Creatine Kinase Total Protein Albumin Salicylates Acetaminophen 04/17/18 04/17/18 04/17/18 01:23 01:32 02:23 Lymph % (Auto) Lymph # Seg Neutrophils % Seg Neutrophils # POC ABG pH POC ABG pCO2 POC ABG pO2 Sodium Potassium 2.7 L* Chloride Carbon Dioxide 33 H BUN Creatinine Glucose 126 H POC Glucose 125 H 140 H Calcium 7.1 L Magnesium AST Lactate Dehydrogenase Total Creatine Kinase Total Protein Albumin Salicylates Acetaminophen 04/17/18 04/17/18 04/17/18 03:21 04:37 05:42 Lymph % (Auto) Lymph # Seg Neutrophils % Seg Neutrophils # POC ABG pH POC ABG pCO2 48.3 H POC ABG pO2 68 L Sodium Potassium 3.0 L Chloride Carbon Dioxide 33 H BUN Creatinine Glucose POC Glucose 149 H Calcium 7.5 L Magnesium AST Lactate Dehydrogenase Total Creatine Kinase Total Protein Albumin Salicylates Acetaminophen 04/17/18 04/17/18 04/17/18 06:23 07:38 08:59 Lymph % (Auto) Lymph # Seg Neutrophils % Seg Neutrophils # POC ABG pH POC ABG pCO2 POC ABG pO2 Sodium Potassium Chloride Carbon Dioxide BUN Creatinine Glucose POC Glucose 113 H 113 H 132 H Calcium Magnesium AST Lactate Dehydrogenase Total Creatine Kinase Total Protein Albumin Salicylates Acetaminophen 04/17/18 04/17/18 04/17/18 11:05 11:52 15:50 Lymph % (Auto) Lymph # Seg Neutrophils % Seg Neutrophils # POC ABG pH POC ABG pCO2 POC ABG pO2 Sodium Potassium Chloride Carbon Dioxide BUN Creatinine Glucose POC Glucose 114 H 121 H 110 H Calcium Magnesium AST Lactate Dehydrogenase Total Creatine Kinase Total Protein Albumin Salicylates Acetaminophen 04/17/18 04/18/18 04/18/18 19:24 00:03 04:25 Lymph % (Auto) Lymph # Seg Neutrophils % Seg Neutrophils # POC ABG pH POC ABG pCO2 POC ABG pO2 Sodium Potassium 2.8 L* Chloride Carbon Dioxide 31 H BUN 5 L Creatinine Glucose POC Glucose 141 H 189 H Calcium 7.3 L Magnesium 1.60 L AST Lactate Dehydrogenase Total Creatine Kinase Total Protein Albumin Salicylates Acetaminophen 04/18/18 04/18/18 04/19/18 09:06 18:48 10:39 Lymph % (Auto) Lymph # Seg Neutrophils % Seg Neutrophils # POC ABG pH POC ABG pCO2 POC ABG pO2 Sodium Potassium 3.4 L D Chloride 109.2 H Carbon Dioxide BUN 7 L Creatinine 0.6 L Glucose POC Glucose 113 H Calcium 8.0 L Magnesium AST Lactate Dehydrogenase Total Creatine Kinase Total Protein Albumin Salicylates Acetaminophen Allied health notes reviewed: nursing
--- NOTE | 2018-04-20 14:30 | Progress Note ---
Subjective - Reason for Consult Consult date: 04/20/18 Reason for consult: Psychiatry Follow-up - Chief Complaint Chief complaint: "I don't need to be here" 27-year-old male who presents after being brought in by EMS after patient was picked up at [facility]. The patient initially presented with a complaint of anxiety. He left the ER and went over to [facility], called 911, and EMS stated that he was sweating. He was in the critical care unit and now the medical floor for aspirin overdose. Today the patient is cooperative, but disorganized during the assessment. He had to be redirected several times during the interview to keep him on topic. Per collateral information from his mother, she stated that her son receive the monthly Invega injection, last administration 28 Mar 2018 ([facility]). He was asked several times about his actions (aspirin overdose) prior to his admission, but he could not elaborate. He denies SI/HI's and AVH' s. Mental Status Exam - Vital signs Last Vital Signs Temp 98.6 F 04/20/18 05:30 Pulse 91 H 04/20/18 05:30 Resp 18 04/20/18 05:30 BP 131/74 04/20/18 05:30 Pulse Ox 96 04/20/18 05:30 - Exam Narrative exam: MSE: Appearance: cooperative Behavior: regular eye contact Speech: pressured speech Mood: "anxious" Affect: congruent to mood Thought Process: disorganized Thought Content: denies SI/HI's and AVH's Motor Activity: ambulatory Cognition: A/O x 3 Insight: poor Judgment: poor Assessment and Plan Impression: Hx of Bipolar DO per collateral information from his mother Chelsea Nguyen. Unspecified Anxiety DO. Intentional vs unintentional overdose. Today the patient is cooperative, but disorganized during the assessment. Recommendation/Plan: Continue 1013 with placement to inpatient psy services once medically clear. Continue Zyprexa 5 mg PO HS for psychosis and start Buspar 7.5 mg PO BID for anxiety. Discussed possible metabolic side effects of Zyprexa with the patient. The patient receive the monthly Invega injection, last administration 28 Mar 2018 per his mother Ms Chelsea Nguyen.
[2018-04-20] MEDS: NACL 0.9% 1000 ML 1,000 ML IV SCH (17:29)
--- NOTE | 2018-04-20 17:29 | Progress Note ---
Assessment and Plan Assessment and plan: Suicidal attempt 1013, mental health consult 1.Acute hypoxic resp failure was on MV and now extubated for numerous days 2. acute toxic Encephalopathy/lethargy due to aspirin od, improving 3. Salicylate poisoning syndrome has completed Poison Control recommendation received HD and IV bicarbonate, improved 4. Hypokalemia and hypokalemia replaced 5. bipolar disorder mental health consult History Interval history: patient remains disorganized denies cp, sob, vomiting, or fever Hospitalist Physical - Physical exam Narrative exam: General appearance: Present: well-nourished - EENT Eyes: Present: PERRL ENT: hearing intact - Neck Neck: Present: supple - Respiratory Respiratory effort: normal Respiratory: bilateral: CTA - Cardiovascular Rhythm: regular Heart Sounds: Present: S1 & S2 - Extremities Extremities: no ischemia Peripheral Pulses: within normal limits - Abdominal General gastrointestinal: soft, non-tender - Integumentary Integumentary: Present: clear, warm - Psychiatric Psychiatric: no appropriate mood/affect, no intact judgment & insight, other ( disorganized) - Neurologic Neurologic: CNII-XII intact, no focal deficits, moves all extremities - Constitutional Vitals: Temp Pulse Resp BP Pulse Ox 99.2 F 89 18 135/80 99 04/20/18 17:15 04/20/18 17:15 04/20/18 17:15 04/20/18 17:15 04/20/18 17:15 General appearance: Present: mild distress, obese, other (intubated) Results - Labs CBC & Chem 7: 04/15/18 09:25 04/21/18 05:43 Labs: Laboratory Last Values WBC 10.9 K/mm3 (4.5-11.0) 04/15/18 09:25 RBC 4.82 M/mm3 (3.65-5.03) 04/15/18 09:25 Hgb 14.0 gm/dl (11.8-15.2) 04/15/18 09:25 Hct 42.3 % (35.5-45.6) 04/15/18 09:25 MCV 88 fl (84-94) 04/15/18 09:25 MCH 29 pg (28-32) 04/15/18 09:25 MCHC 33 % (32-34) 04/15/18 09:25 RDW 14.0 % (13.2-15.2) 04/15/18 09:25 Plt Count 343 K/mm3 (140-440) 04/15/18 09:25 Lymph % (Auto) 8.7 % (13.4-35.0) L 04/15/18 09:25 [place] % (Auto) 5.0 % (0.0-7.3) 04/15/18 09:25 Eos % (Auto) 0.2 % (0.0-4.3) 04/15/18 09:25 Baso % (Auto) 0.5 % (0.0-1.8) 04/15/18 09:25 Lymph # 0.9 K/mm3 (1.2-5.4) L 04/15/18 09:25 [place] # 0.5 K/mm3 (0.0-0.8) 04/15/18 09:25 Eos # 0.0 K/mm3 (0.0-0.4) 04/15/18 09:25 Baso # 0.1 K/mm3 (0.0-0.1) 04/15/18 09:25 Seg Neutrophils % 85.6 % (40.0-70.0) H 04/15/18 09:25 Seg Neutrophils # 9.3 K/mm3 (1.8-7.7) H 04/15/18 09:25 POC ABG pH 7.443 (7.35-7.45) 04/17/18 05:42 POC ABG pCO2 48.3 (35-45) H 04/17/18 05:42 POC ABG pO2 68 (80-105) L 04/17/18 05:42 POC ABG HCO3 33.0 04/17/18 05:42 POC ABG Total CO2 34 04/17/18 05:42 POC ABG O2 Sat 94 04/17/18 05:42 POC ABG Base Excess 9 04/17/18 05:42 FiO2 30 % 04/17/18 05:42 Sodium 140 mmol/L (137-145) 04/19/18 10:39 Potassium 3.6 mmol/L (3.6-5.0) 04/19/18 10:39 Chloride 109.2 mmol/L (98-107) H 04/19/18 10:39 Carbon Dioxide 22 mmol/L (22-30) D 04/19/18 10:39 Anion Gap 12 mmol/L 04/19/18 10:39 BUN 7 mg/dL (9-20) L 04/19/18 10:39 Creatinine 0.6 mg/dL (0.8-1.5) L 04/19/18 10:39 Estimated GFR > 60 ml/min 04/19/18 10:39 BUN/Creatinine Ratio 12 % 04/19/18 10:39 Glucose 94 mg/dL (75-100) 04/19/18 10:39 POC Glucose 90 (70-105) 04/18/18 16:28 Lactic Acid 1.60 mmol/L (0.7-2.0) 04/16/18 10:42 Calcium 8.0 mg/dL (8.4-10.2) L 04/19/18 10:39 Magnesium 1.70 mg/dL (1.7-2.3) 04/19/18 10:39 Total Bilirubin < 0.20 mg/dL (0.1-1.2) 04/15/18 23:55 AST 85 units/L (5-40) H 04/15/18 23:55 ALT 38 units/L (7-56) 04/15/18 23:55 Alkaline Phosphatase 42 units/L (35-129) 04/15/18 23:55 Lactate Dehydrogenase 556 units/L (91-180) H 04/16/18 19:00 Total Creatine Kinase 190 units/L (55-170) H 04/15/18 10:57 Troponin T < 0.010 ng/mL (0.00-0.029) 04/15/18 10:57 Total Protein 4.9 g/dL (6.3-8.2) L 04/15/18 23:55 Albumin 2.9 g/dL (3.9-5) L 04/15/18 23:55 Albumin/Globulin Ratio 1.5 % 04/15/18 23:55 Urine Color Yellow (Yellow) 04/15/18 Unknown Urine Turbidity Clear (Clear) 04/15/18 Unknown Urine pH 6.0 (5.0-7.0) 04/15/18 Unknown Ur Specific [place] 1.015 (1.003-1.030) 04/15/18 Unknown Urine Protein 100 mg/dl mg/dL (Negative) 04/15/18 Unknown Urine Glucose (UA) 50 mg/dL (Negative) 04/15/18 Unknown Urine Ketones 20 mg/dL (Negative) 04/15/18 Unknown Urine Blood Neg (Negative) 04/15/18 Unknown Urine Nitrite Neg (Negative) 04/15/18 Unknown Urine Bilirubin Neg (Negative) 04/15/18 Unknown Urine Urobilinogen < 2.0 mg/dL (<2.0) 04/15/18 Unknown Ur Leukocyte Esterase Neg (Negative) 04/15/18 Unknown Urine WBC (Auto) 4.0 /HPF (0.0-6.0) 04/15/18 Unknown Urine RBC (Auto) 2.0 /HPF (0.0-6.0) 04/15/18 Unknown Salicylates 15.1 mg/dL (2.8-20.0) 04/17/18 04:37 Urine Opiates Screen Presumptive negative 04/15/18 Unknown Urine Methadone Screen Presumptive negative 04/15/18 Unknown Acetaminophen < 5.0 ug/mL (10.0-30.0) L 04/15/18 10:54 Ur Barbiturates Screen Presumptive negative 04/15/18 Unknown Ur Phencyclidine Scrn Presumptive negative 04/15/18 Unknown Ur Amphetamines Screen Presumptive negative 04/15/18 Unknown U Benzodiazepines Scrn Presumptive negative 04/15/18 Unknown Urine Cocaine Screen Presumptive negative 04/15/18 Unknown U Marijuana (THC) Screen Presumptive negative 04/15/18 Unknown Drugs of Abuse Note Disclamer 04/15/18 Unknown Plasma/Serum Alcohol < 0.01 % (0-0.07) 04/15/18 10:56 Hepatitis A IgM Ab Nonreactive (NonReactive) 04/15/18 15:45 Hep Bs Antigen Non-reactive (Negative) 04/15/18 15:45 Hep B Core IgM Ab Non-reactive (NonReactive) 04/15/18 15:45 Hepatitis C Antibody Non-reactive (NonReactive) 04/15/18 15:45
[2018-04-20] MEDS: BUSPAR PO SCH (21:26)
[2018-04-20 22:50] VITALS: BP 123/71
[2018-04-21] MEDS: HEPARIN SUB-Q SCH ×3 (06:06→22:29)
[2018-04-21 06:35] LABS: BUN/Creatinine Ratio 9; Blood Urea Nitrogen 6 mg/dL (9-20); Calcium 8.3 mg/dL (8.4-10.2); Hemolysis Index 2
[2018-04-21] MEDS: PEPCID PO SCH ×2 (10:49→22:28)
[2018-04-21] MEDS: SODIUM CHLORIDE FLUSH SYRINGE 10 ML IV SCH ×2 (10:52→22:31)
[2018-04-21] MEDS: BUSPAR PO SCH ×3 (10:53→22:28)
--- NOTE | 2018-04-21 14:16 | Progress Note ---
Assessment and Plan Assessment and plan: Suicidal attempt 1013, mental health consult 1.Acute hypoxic resp failure was on MV and now extubated for numerous days 2. acute toxic Encephalopathy/lethargy due to aspirin od, improving 3. Salicylate poisoning syndrome has completed Poison Control recommendation received HD and IV bicarbonate, improved 4. Hypokalemia and hypokalemia replaced 5. bipolar disorder mental health consult Elevated LFTs and Pancreatic enzyme levels expected outcome from aspirin toxicity -asymptomatic NTD Medically optimized for transfer to inpatient psych. History Interval history: patient remains disorganized denies cp, sob, vomiting, or fever Hospitalist Physical - Physical exam Narrative exam: General appearance: Present: well-nourished - EENT Eyes: Present: PERRL ENT: hearing intact - Neck Neck: Present: supple - Respiratory Respiratory effort: normal Respiratory: bilateral: CTA - Cardiovascular Rhythm: regular Heart Sounds: Present: S1 & S2 - Extremities Extremities: no ischemia Peripheral Pulses: within normal limits - Abdominal General gastrointestinal: soft, non-tender - Integumentary Integumentary: Present: clear, warm - Psychiatric Psychiatric: no appropriate mood/affect, no intact judgment & insight, other ( disorganized) - Neurologic Neurologic: CNII-XII intact, no focal deficits, moves all extremities - Constitutional Vitals: Temp Pulse Resp BP Pulse Ox 98.5 F 98 H 18 123/71 100 04/20/18 22:46 04/20/18 22:46 04/20/18 22:46 04/20/18 22:46 04/21/18 10:00 General appearance: Present: mild distress, obese, other (intubated) Results - Labs CBC & Chem 7: 04/15/18 09:25 04/21/18 05:43 Labs: Laboratory Last Values WBC 10.9 K/mm3 (4.5-11.0) 04/15/18 09:25 RBC 4.82 M/mm3 (3.65-5.03) 04/15/18 09:25 Hgb 14.0 gm/dl (11.8-15.2) 04/15/18 09:25 Hct 42.3 % (35.5-45.6) 04/15/18 09:25 MCV 88 fl (84-94) 04/15/18 09:25 MCH 29 pg (28-32) 04/15/18 09:25 MCHC 33 % (32-34) 04/15/18 09:25 RDW 14.0 % (13.2-15.2) 04/15/18 09:25 Plt Count 343 K/mm3 (140-440) 04/15/18 09:25 Lymph % (Auto) 8.7 % (13.4-35.0) L 04/15/18 09:25 [place] % (Auto) 5.0 % (0.0-7.3) 04/15/18 09:25 Eos % (Auto) 0.2 % (0.0-4.3) 04/15/18 09:25 Baso % (Auto) 0.5 % (0.0-1.8) 04/15/18 09:25 Lymph # 0.9 K/mm3 (1.2-5.4) L 04/15/18 09:25 [place]rell # 0.5 K/mm3 (0.0-0.8) 04/15/18 09:25 Eos # 0.0 K/mm3 (0.0-0.4) 04/15/18 09:25 Baso # 0.1 K/mm3 (0.0-0.1) 04/15/18 09:25 Seg Neutrophils % 85.6 % (40.0-70.0) H 04/15/18 09:25 Seg Neutrophils # 9.3 K/mm3 (1.8-7.7) H 04/15/18 09:25 POC ABG pH 7.443 (7.35-7.45) 04/17/18 05:42 POC ABG pCO2 48.3 (35-45) H 04/17/18 05:42 POC ABG pO2 68 (80-105) L 04/17/18 05:42 POC ABG HCO3 33.0 04/17/18 05:42 POC ABG Total CO2 34 04/17/18 05:42 POC ABG O2 Sat 94 04/17/18 05:42 POC ABG Base Excess 9 04/17/18 05:42 FiO2 30 % 04/17/18 05:42 Sodium 137 mmol/L (137-145) 04/21/18 05:43 Potassium 4.0 mmol/L (3.6-5.0) 04/21/18 05:43 Chloride 104.1 mmol/L (98-107) 04/21/18 05:43 Carbon Dioxide 21 mmol/L (22-30) L 04/21/18 05:43 Anion Gap 16 mmol/L 04/21/18 05:43 BUN 6 mg/dL (9-20) L 04/21/18 05:43 Creatinine 0.7 mg/dL (0.8-1.5) L 04/21/18 05:43 Estimated GFR > 60 ml/min 04/21/18 05:43 BUN/Creatinine Ratio 9 % 04/21/18 05:43 Glucose 94 mg/dL (75-100) 04/21/18 05:43 POC Glucose 90 (70-105) 04/18/18 16:28 Lactic Acid 1.60 mmol/L (0.7-2.0) 04/16/18 10:42 Calcium 8.3 mg/dL (8.4-10.2) L 04/21/18 05:43 Magnesium 1.90 mg/dL (1.7-2.3) 04/21/18 05:43 Total Bilirubin < 0.20 mg/dL (0.1-1.2) 04/15/18 23:55 AST 85 units/L (5-40) H 04/15/18 23:55 ALT 38 units/L (7-56) 04/15/18 23:55 Alkaline Phosphatase 42 units/L (35-129) 04/15/18 23:55 Lactate Dehydrogenase 556 units/L (91-180) H 04/16/18 19:00 Total Creatine Kinase 190 units/L (55-170) H 04/15/18 10:57 Troponin T < 0.010 ng/mL (0.00-0.029) 04/15/18 10:57 Total Protein 4.9 g/dL (6.3-8.2) L 04/15/18 23:55 Albumin 2.9 g/dL (3.9-5) L 04/15/18 23:55 Albumin/Globulin Ratio 1.5 % 04/15/18 23:55 Urine Color Yellow (Yellow) 04/15/18 Unknown Urine Turbidity Clear (Clear) 04/15/18 Unknown Urine pH 6.0 (5.0-7.0) 04/15/18 Unknown Ur Specific [place] 1.015 (1.003-1.030) 04/15/18 Unknown Urine Protein 100 mg/dl mg/dL (Negative) 04/15/18 Unknown Urine Glucose (UA) 50 mg/dL (Negative) 04/15/18 Unknown Urine Ketones 20 mg/dL (Negative) 04/15/18 Unknown Urine Blood Neg (Negative) 04/15/18 Unknown Urine Nitrite Neg (Negative) 04/15/18 Unknown Urine Bilirubin Neg (Negative) 04/15/18 Unknown Urine Urobilinogen < 2.0 mg/dL (<2.0) 04/15/18 Unknown Ur Leukocyte Esterase Neg (Negative) 04/15/18 Unknown Urine WBC (Auto) 4.0 /HPF (0.0-6.0) 04/15/18 Unknown Urine RBC (Auto) 2.0 /HPF (0.0-6.0) 04/15/18 Unknown Salicylates 15.1 mg/dL (2.8-20.0) 04/17/18 04:37 Urine Opiates Screen Presumptive negative 04/15/18 Unknown Urine Methadone Screen Presumptive negative 04/15/18 Unknown Acetaminophen < 5.0 ug/mL (10.0-30.0) L 04/15/18 10:54 Ur Barbiturates Screen Presumptive negative 04/15/18 Unknown Ur Phencyclidine Scrn Presumptive negative 04/15/18 Unknown Ur Amphetamines Screen Presumptive negative 04/15/18 Unknown U Benzodiazepines Scrn Presumptive negative 04/15/18 Unknown Urine Cocaine Screen Presumptive negative 04/15/18 Unknown U Marijuana (THC) Screen Presumptive negative 04/15/18 Unknown Drugs of Abuse Note Disclamer 04/15/18 Unknown Plasma/Serum Alcohol < 0.01 % (0-0.07) 04/15/18 10:56 Hepatitis A IgM Ab Nonreactive (NonReactive) 04/15/18 15:45 Hep Bs Antigen Non-reactive (Negative) 04/15/18 15:45 Hep B Core IgM Ab Non-reactive (NonReactive) 04/15/18 15:45 Hepatitis C Antibody Non-reactive (NonReactive) 04/15/18 15:45
--- NOTE | 2018-04-21 14:29 | Progress Note ---
Subjective - Reason for Consult Consult date: 04/21/18 Reason for consult: Psychiatry Follow-up - Chief Complaint Chief complaint: "The patient rambling" 27-year-old male who presents after being brought in by EMS after patient was picked up at [facility]. The patient initially presented with a complaint of anxiety. He left the ER and went over to [facility], called 911, and EMS stated that he was sweating. He was in the critical care unit and now the medical floor for aspirin overdose. Today the patient is cooperative, but still disorganized during the assessment. His answers to questions isn't logical. He rambles on when asked questions. He stated that he isn't sleeping at night. He denies Si/HI 's and AVH's. He denies any side effects of his medications. Mental Status Exam - Vital signs Last Vital Signs Temp 98.5 F 04/20/18 22:46 Pulse 98 H 04/20/18 22:46 Resp 18 04/20/18 22:46 BP 123/71 04/20/18 22:46 Pulse Ox 100 04/21/18 10:00 - Exam Narrative exam: MSE: Appearance: cooperative Behavior: regular eye contact Speech: pressured speech, rambling Mood: "I'm okay" Affect: flat Thought Process: tangential, disorganized Thought Content: denies SI/HI's and AVH's Motor Activity: ambulatory Cognition: A/O x 3 Insight: poor Judgment: poor Assessment and Plan Impression: Hx of Bipolar DO per collateral information from his mother Chelsea Nguyen. Unspecified Anxiety DO. Intentional vs unintentional overdose. Manic symptoms. Today the patient is cooperativ, but still disorganized during the assessment. Recommendation/Plan: Continue 1013 with placement to inpatient psy services once medically clear. Increase Zyprexa to 10 mg PO HS for psychosis, and Buspar 7.5 mg PO BID for anxiety. Discussed possible metabolic side effects of Zyprexa with the patient. The patient receive the monthly Invega injection, last administration 28 Mar 2018 per his mother Ms Chelsea Nguyen.
--- NOTE | 2018-04-21 16:22 | Progress Note ---
Assessment and Plan -Acute hypoxemic respiratory failure, extubated -Salicylate poisoning -Metabolic acidosis -Acute encephalopathy -Acute renal failure -SIRS, does not appear to be sepsis related -h/o Bipolar disorder -Unclear as to intentional OD -Obesity - Psych evaluation for disposition - advance diet - discontinued groin CVL - stop hourly accuchecks - ASA levels reducing - discontinued bicarbonate infusion - PT/OT evaluate and treat - VAP bundle addressed - Stopped serial ABG's - Continue to monitor renal function - CXRs prn at this point - VTE prophylaxis - Stress ulcer prophylaxis - Monitor off antibiotics - Agitation management - Replete electrolytes as indicated FULL CODE STATUS Subjective Date of service: 04/21/18 Principal diagnosis: Acute hypoxemic respiratory failure; Salicylate poisoning ; THOMAS Objective Vital Signs - 12hr 04/21/18 10:00 O2 Sat by Pulse 100 Oximetry Constitutional: other (young obese AAM, normocephalic and atraumatic without increased respiratory effort) Eyes: non-icteric ENT: oropharynx moist, other (ETT 23 cm RICK) Neck: supple, no lymphadenopathy, no JVD Effort: mildly labored Ascultation: Bilateral: diminished breath sounds, rhonchi (scant) Percussion: Bilateral: not dull Cardiovascular: regular rate and rhythm, other (S1,S2, no murmurs, gallops or rubs) Gastrointestinal: normoactive bowel sounds, soft, non-tender, non-distended, other (No palpable HSM) Integumentary: normal, other (Femoral vascath and femoral CVC) Extremities: no cyanosis, no edema, pulses normal, no ischemia or petechiae Neurologic: non-focal exam (grossly), pupils equal and round, CN II-XII normal, motor strength normal and Psychiatric: other (deppressed) CBC and BMP: 04/15/18 09:25 04/21/18 05:43 ABG, PT/INR, D-dimer: ABG POC ABG pH 7.443 (7.35-7.45) 04/17/18 05:42 POC ABG pCO2 48.3 (35-45) H 04/17/18 05:42 POC ABG pO2 68 (80-105) L 04/17/18 05:42 POC ABG HCO3 33.0 04/17/18 05:42 POC ABG Total CO2 34 04/17/18 05:42 POC ABG O2 Sat 94 04/17/18 05:42 Abnormal lab findings: Abnormal Labs 04/15/18 04/15/18 04/15/18 09:15 09:25 09:25 Lymph % (Auto) 8.7 L Lymph # 0.9 L Seg Neutrophils % 85.6 H Seg Neutrophils # 9.3 H POC ABG pH POC ABG pCO2 POC ABG pO2 Sodium 136 L Potassium Chloride Carbon Dioxide 15 L BUN Creatinine Glucose 133 H POC Glucose 110 H Calcium Magnesium AST Lactate Dehydrogenase Total Creatine Kinase Total Protein Albumin Salicylates Acetaminophen 04/15/18 04/15/18 04/15/18 10:54 10:57 10:57 Lymph % (Auto) Lymph # Seg Neutrophils % Seg Neutrophils # POC ABG pH POC ABG pCO2 POC ABG pO2 Sodium Potassium Chloride Carbon Dioxide BUN Creatinine Glucose POC Glucose Calcium Magnesium AST Lactate Dehydrogenase Total Creatine Kinase 190 H Total Protein Albumin Salicylates 104.5 H Acetaminophen < 5.0 L 04/15/18 04/15/18 04/15/18 14:16 15:45 18:17 Lymph % (Auto) Lymph # Seg Neutrophils % Seg Neutrophils # POC ABG pH 7.546 H 7.277 L POC ABG pCO2 14.8 L 54.1 H POC ABG pO2 112 H 153 H Sodium Potassium Chloride Carbon Dioxide BUN Creatinine Glucose POC Glucose Calcium Magnesium AST Lactate Dehydrogenase Total Creatine Kinase Total Protein Albumin Salicylates 107.9 H Acetaminophen 04/15/18 04/15/18 04/15/18 20:38 23:55 23:55 Lymph % (Auto) Lymph # Seg Neutrophils % Seg Neutrophils # POC ABG pH POC ABG pCO2 POC ABG pO2 Sodium Potassium 3.0 L D Chloride Carbon Dioxide 18 L BUN 21 H Creatinine 1.6 H D Glucose POC Glucose 110 H Calcium 6.3 L D Magnesium AST 85 H Lactate Dehydrogenase Total Creatine Kinase Total Protein 4.9 L Albumin 2.9 L Salicylates 50.3 H Acetaminophen 04/16/18 04/16/18 04/16/18 00:00 02:03 02:03 Lymph % (Auto) Lymph # Seg Neutrophils % Seg Neutrophils # POC ABG pH 7.517 H POC ABG pCO2 26.3 L POC ABG pO2 173 H Sodium Potassium 3.4 L Chloride Carbon Dioxide 17 L BUN 24 H Creatinine 1.8 H Glucose POC Glucose Calcium 6.4 L Magnesium AST Lactate Dehydrogenase Total Creatine Kinase Total Protein Albumin Salicylates 52.4 H Acetaminophen 04/16/18 04/16/18 04/16/18 04:57 06:06 06:20 Lymph % (Auto) Lymph # Seg Neutrophils % Seg Neutrophils # POC ABG pH POC ABG pCO2 34.9 L POC ABG pO2 Sodium Potassium Chloride Carbon Dioxide BUN Creatinine Glucose POC Glucose 121 H 136 H Calcium Magnesium AST Lactate Dehydrogenase Total Creatine Kinase Total Protein Albumin Salicylates Acetaminophen 04/16/18 04/16/18 04/16/18 06:34 06:34 07:08 Lymph % (Auto) Lymph # Seg Neutrophils % Seg Neutrophils # POC ABG pH POC ABG pCO2 POC ABG pO2 Sodium Potassium 3.2 L Chloride Carbon Dioxide BUN 29 H Creatinine 2.2 H Glucose 129 H POC Glucose 168 H Calcium 6.5 L Magnesium AST Lactate Dehydrogenase Total Creatine Kinase Total Protein Albumin Salicylates 49.2 H Acetaminophen 04/16/18 04/16/18 04/16/18 08:19 09:01 10:11 Lymph % (Auto) Lymph # Seg Neutrophils % Seg Neutrophils # POC ABG pH POC ABG pCO2 POC ABG pO2 Sodium Potassium Chloride Carbon Dioxide BUN Creatinine Glucose POC Glucose 121 H 166 H 133 H Calcium Magnesium AST Lactate Dehydrogenase Total Creatine Kinase Total Protein Albumin Salicylates Acetaminophen 04/16/18 04/16/18 04/16/18 10:42 10:42 10:42 Lymph % (Auto) Lymph # Seg Neutrophils % Seg Neutrophils # POC ABG pH POC ABG pCO2 POC ABG pO2 Sodium Potassium 2.8 L* Chloride Carbon Dioxide BUN 29 H Creatinine 2.1 H Glucose 171 H POC Glucose Calcium 5.8 L* Magnesium 1.40 L AST Lactate Dehydrogenase Total Creatine Kinase Total Protein Albumin Salicylates 45.2 H Acetaminophen 04/16/18 04/16/18 04/16/18 12:00 13:06 14:00 Lymph % (Auto) Lymph # Seg Neutrophils % Seg Neutrophils # POC ABG pH POC ABG pCO2 POC ABG pO2 Sodium Potassium Chloride Carbon Dioxide BUN Creatinine Glucose POC Glucose 134 H 133 H 151 H Calcium Magnesium AST Lactate Dehydrogenase Total Creatine Kinase Total Protein Albumin Salicylates Acetaminophen 04/16/18 04/16/18 04/16/18 15:48 17:15 17:53 Lymph % (Auto) Lymph # Seg Neutrophils % Seg Neutrophils # POC ABG pH POC ABG pCO2 POC ABG pO2 Sodium Potassium Chloride Carbon Dioxide BUN Creatinine Glucose POC Glucose 128 H 119 H 140 H Calcium Magnesium AST Lactate Dehydrogenase Total Creatine Kinase Total Protein Albumin Salicylates Acetaminophen 04/16/18 04/16/18 04/16/18 19:00 19:03 19:10 Lymph % (Auto) Lymph # Seg Neutrophils % Seg Neutrophils # POC ABG pH POC ABG pCO2 POC ABG pO2 Sodium Potassium 2.8 L* 3.0 L Chloride Carbon Dioxide BUN Creatinine Glucose 103 H POC Glucose Calcium 8.0 L D Magnesium 1.50 L AST Lactate Dehydrogenase 556 H Total Creatine Kinase Total Protein Albumin Salicylates Acetaminophen 04/16/18 04/16/18 04/16/18 19:21 20:21 21:35 Lymph % (Auto) Lymph # Seg Neutrophils % Seg Neutrophils # POC ABG pH POC ABG pCO2 POC ABG pO2 Sodium Potassium Chloride Carbon Dioxide BUN Creatinine Glucose POC Glucose 114 H 116 H 128 H Calcium Magnesium AST Lactate Dehydrogenase Total Creatine Kinase Total Protein Albumin Salicylates Acetaminophen 04/16/18 04/16/18 04/16/18 22:43 22:50 22:53 Lymph % (Auto) Lymph # Seg Neutrophils % Seg Neutrophils # POC ABG pH 7.471 H POC ABG pCO2 46.9 H POC ABG pO2 Sodium Potassium 2.7 L* Chloride Carbon Dioxide 31 H BUN Creatinine Glucose 113 H POC Glucose 114 H Calcium 7.6 L Magnesium AST Lactate Dehydrogenase Total Creatine Kinase Total Protein Albumin Salicylates Acetaminophen 04/17/18 04/17/18 04/17/18 01:23 01:32 02:23 Lymph % (Auto) Lymph # Seg Neutrophils % Seg Neutrophils # POC ABG pH POC ABG pCO2 POC ABG pO2 Sodium Potassium 2.7 L* Chloride Carbon Dioxide 33 H BUN Creatinine Glucose 126 H POC Glucose 125 H 140 H Calcium 7.1 L Magnesium AST Lactate Dehydrogenase Total Creatine Kinase Total Protein Albumin Salicylates Acetaminophen 04/17/18 04/17/18 04/17/18 03:21 04:37 05:42 Lymph % (Auto) Lymph # Seg Neutrophils % Seg Neutrophils # POC ABG pH POC ABG pCO2 48.3 H POC ABG pO2 68 L Sodium Potassium 3.0 L Chloride Carbon Dioxide 33 H BUN Creatinine Glucose POC Glucose 149 H Calcium 7.5 L Magnesium AST Lactate Dehydrogenase Total Creatine Kinase Total Protein Albumin Salicylates Acetaminophen 0904/17/18 04/17/18 06:23 07:38 08:59 Lymph % (Auto) Lymph # Seg Neutrophils % Seg Neutrophils # POC ABG pH POC ABG pCO2 POC ABG pO2 Sodium Potassium Chloride Carbon Dioxide BUN Creatinine Glucose POC Glucose 113 H 113 H 132 H Calcium Magnesium AST Lactate Dehydrogenase Total Creatine Kinase Total Protein Albumin Salicylates Acetaminophen 04/17/18 04/17/18 04/17/18 11:05 11:52 15:50 Lymph % (Auto) Lymph # Seg Neutrophils % Seg Neutrophils # POC ABG pH POC ABG pCO2 POC ABG pO2 Sodium Potassium Chloride Carbon Dioxide BUN Creatinine Glucose POC Glucose 114 H 121 H 110 H Calcium Magnesium AST Lactate Dehydrogenase Total Creatine Kinase Total Protein Albumin Salicylates Acetaminophen 04/17/18 04/18/18 04/18/18 19:24 00:03 04:25 Lymph % (Auto) Lymph # Seg Neutrophils % Seg Neutrophils # POC ABG pH POC ABG pCO2 POC ABG pO2 Sodium Potassium 2.8 L* Chloride Carbon Dioxide 31 H BUN 5 L Creatinine Glucose POC Glucose 141 H 189 H Calcium 7.3 L Magnesium 1.60 L AST Lactate Dehydrogenase Total Creatine Kinase Total Protein Albumin Salicylates Acetaminophen 04/18/18 04/18/18 04/19/18 09:06 18:48 10:39 Lymph % (Auto) Lymph # Seg Neutrophils % Seg Neutrophils # POC ABG pH POC ABG pCO2 POC ABG pO2 Sodium Potassium 3.4 L D Chloride 109.2 H Carbon Dioxide BUN 7 L Creatinine 0.6 L Glucose POC Glucose 113 H Calcium 8.0 L Magnesium AST Lactate Dehydrogenase Total Creatine Kinase Total Protein Albumin Salicylates Acetaminophen 04/21/18 05:43 Lymph % (Auto) Lymph # Seg Neutrophils % Seg Neutrophils # POC ABG pH POC ABG pCO2 POC ABG pO2 Sodium Potassium Chloride Carbon Dioxide 21 L BUN 6 L Creatinine 0.7 L Glucose POC Glucose Calcium 8.3 L Magnesium AST Lactate Dehydrogenase Total Creatine Kinase Total Protein Albumin Salicylates Acetaminophen Allied health notes reviewed: nursing
[2018-04-21 16:41] LABS: Alanine Aminotransferase 94 units/L (7-56)
[2018-04-21 17:37] LABS: Lipase 588 units/L (13-60)
[2018-04-21] MEDS: PROVENTIL IH PRN (23:23)
[2018-04-22] MEDS: HEPARIN SUB-Q SCH ×2 (05:46→13:55)
[2018-04-22] MEDS: BUSPAR PO SCH (10:28)
[2018-04-22] MEDS: PEPCID PO SCH (10:28)
[2018-04-22] MEDS: SODIUM CHLORIDE FLUSH SYRINGE 10 ML IV SCH (10:29)
--- NOTE | 2018-04-22 12:43 | Event Note ---
Date: 04/22/18
--- NOTE | 2018-04-22 13:32 | Progress Note ---
Subjective - Reason for Consult Consult date: 04/22/18 Reason for consult: Psychiatric Follow-up - Chief Complaint Chief complaint: "I'm feeling like I'm ready to go home" Patient is a 27-year-old male who presents after being brought in by EMS after patient was picked up at [facility]. The patient initially presented with a complaint of anxiety. He left the ER and went over to [facility], called 911, and EMS stated that he was sweating. He was in the critical care unit and now the medical floor for aspirin overdose. Today the patient is cooperative, but anxious during the assessment. He is somewhat disorganized. His answers to questions isn't logical. He rambles when asked questions. He reports appropriate sleep and appetite. He denies SI/HI's and AVH's. He denies any side effects of his medications. Mental Status Exam - Vital signs Last Vital Signs Temp 98.5 F 04/20/18 22:46 Pulse 94 H 04/21/18 23:33 Resp 18 04/21/18 23:33 BP 123/71 04/20/18 22:46 Pulse Ox 100 04/21/18 10:00 - Exam Narrative exam: Mental Status Exam General Appearance: Casually Dressed-hospital gown Eye Contact: Intermittent Orientation: Alert and oriented x 3 ( person, place, and time) Attitude/Behavior: Cooperative Sensorium: Distracted Psychomotor & Musculoskeletal Activity: Ambulatory Mood: " Alright"; Anxious/fidgety Affect: Constricted Speech/Language: Rapid Thought Processes: tangential, circumstantial Thought Content: Impoverished Perception: Patient denies A/V/T hallucinations Concentration/Attention: Impaired Suicidal Ideations/Plan: Patient denies. Homicidal Ideations/Plan: Patient denies. Judgment: Poor Insight: Poor Assessment and Plan Impression: Hx of Bipolar DO per collateral information from his mother Chelsea Nguyen. Unspecified Anxiety DO. Intentional vs unintentional overdose. Manic symptoms. Today the patient is cooperative, but anxious during the assessment. Patient is somewhat disorganized/tangential during the assessment. Recommendation/Plan: 1. Continue 1013 with placement to inpatient psy services once medically clear. 2. Continue Zyprexa to 10 mg PO HS for psychosis, and Buspar 7.5 mg PO BID for anxiety. Discussed possible metabolic side effects of Zyprexa with the patient. The patient receive the monthly Invega injection, last administration 28 Mar 2018 per his mother Ms Chelsea Nguyen. 3. Patient accepted to [facility]. 1014 requested.
--- NOTE | 2018-04-22 14:58 | Progress Note ---
Assessment and Plan Assessment and plan: Suicidal attempt 1013, mental health consult 1.Acute hypoxic resp failure was on MV and now extubated for numerous days 2. acute toxic Encephalopathy/lethargy due to aspirin od, improving 3. Salicylate poisoning syndrome has completed Poison Control recommendation received HD and IV bicarbonate, improved 4. Hypokalemia and hypokalemia replaced 5. bipolar disorder mental health consult Elevated LFTs and Pancreatic enzyme levels expected outcome from aspirin toxicity -asymptomatic NTD Medically optimized for transfer to inpatient psych. History Interval history: Patient was seen and examined. Follow-up on current diagnosis of SI. Overnight uneventful. Patient denies any chest pain, shortness breath, nausea/vomiting or severe headaches. Imaging, nursing note, chart, labs and old chart reviewed. Discussed with patient. Hospitalist Physical - Physical exam Narrative exam: GEN: WDWN, NAD, Awake, Alert, Orientated x 3 HEENT: NCAT, EOMI, PERRL, OP Clear NECK: supple, no adenopathy, no thyromegaly, no JVD CVS/HEART: RRR, normal S1S2, pulses present bilaterally CHEST/LUNGS: CTA B, Symmetrical chest expansion, good air entry bilaterally GI/Abdomen: soft, epigastric tenderness, good bowel sounds, no guarding or rebound /Bladder: no suprapubic tenderness, no CVA or paraspinal tenderness EXT/Skin: no c/c/e, no obvious rash MSK: FROM x 4 Neuro: CN 2-12 grossly intact, no new focal deficits Psych: calm - Constitutional Vitals: Temp Pulse Resp BP Pulse Ox 98.5 F 94 H 18 123/71 100 04/20/18 22:46 04/21/18 23:33 04/21/18 23:33 04/20/18 22:46 04/21/18 10:00 General appearance: Present: obese. Absent: mild distress, other (intubated) Results - Labs CBC & Chem 7: 04/15/18 09:25 04/21/18 05:43 Labs: Laboratory Last Values WBC 10.9 K/mm3 (4.5-11.0) 04/15/18 09:25 RBC 4.82 M/mm3 (3.65-5.03) 04/15/18 09:25 Hgb 14.0 gm/dl (11.8-15.2) 04/15/18 09:25 Hct 42.3 % (35.5-45.6) 04/15/18 09:25 MCV 88 fl (84-94) 04/15/18 09:25 MCH 29 pg (28-32) 04/15/18 09:25 MCHC 33 % (32-34) 04/15/18 09:25 RDW 14.0 % (13.2-15.2) 04/15/18 09:25 Plt Count 343 K/mm3 (140-440) 04/15/18 09:25 Lymph % (Auto) 8.7 % (13.4-35.0) L 04/15/18 09:25 [place] % (Auto) 5.0 % (0.0-7.3) 04/15/18 09:25 Eos % (Auto) 0.2 % (0.0-4.3) 04/15/18 09:25 Baso % (Auto) 0.5 % (0.0-1.8) 04/15/18 09:25 Lymph # 0.9 K/mm3 (1.2-5.4) L 04/15/18 09:25 [place] # 0.5 K/mm3 (0.0-0.8) 04/15/18 09:25 Eos # 0.0 K/mm3 (0.0-0.4) 04/15/18 09:25 Baso # 0.1 K/mm3 (0.0-0.1) 04/15/18 09:25 Seg Neutrophils % 85.6 % (40.0-70.0) H 04/15/18 09:25 Seg Neutrophils # 9.3 K/mm3 (1.8-7.7) H 04/15/18 09:25 POC ABG pH 7.443 (7.35-7.45) 04/17/18 05:42 POC ABG pCO2 48.3 (35-45) H 04/17/18 05:42 POC ABG pO2 68 (80-105) L 04/17/18 05:42 POC ABG HCO3 33.0 04/17/18 05:42 POC ABG Total CO2 34 04/17/18 05:42 POC ABG O2 Sat 94 04/17/18 05:42 POC ABG Base Excess 9 04/17/18 05:42 FiO2 30 % 04/17/18 05:42 Sodium 137 mmol/L (137-145) 04/21/18 05:43 Potassium 4.0 mmol/L (3.6-5.0) 04/21/18 05:43 Chloride 104.1 mmol/L (98-107) 04/21/18 05:43 Carbon Dioxide 21 mmol/L (22-30) L 04/21/18 05:43 Anion Gap 16 mmol/L 04/21/18 05:43 BUN 6 mg/dL (9-20) L 04/21/18 05:43 Creatinine 0.7 mg/dL (0.8-1.5) L 04/21/18 05:43 Estimated GFR > 60 ml/min 04/21/18 05:43 BUN/Creatinine Ratio 9 % 04/21/18 05:43 Glucose 94 mg/dL (75-100) 04/21/18 05:43 POC Glucose 90 (70-105) 04/18/18 16:28 Lactic Acid 1.60 mmol/L (0.7-2.0) 04/16/18 10:42 Calcium 8.3 mg/dL (8.4-10.2) L 04/21/18 05:43 Magnesium 1.90 mg/dL (1.7-2.3) 04/21/18 05:43 Total Bilirubin < 0.20 mg/dL (0.1-1.2) 04/15/18 23:55 AST 101 units/L (5-40) H 04/21/18 15:00 ALT 94 units/L (7-56) H 04/21/18 15:00 Alkaline Phosphatase 83 units/L (35-129) 04/21/18 15:00 Lactate Dehydrogenase 556 units/L (91-180) H 04/16/18 19:00 Total Creatine Kinase 190 units/L (55-170) H 04/15/18 10:57 Troponin T < 0.010 ng/mL (0.00-0.029) 04/15/18 10:57 Total Protein 4.9 g/dL (6.3-8.2) L 04/15/18 23:55 Albumin 2.9 g/dL (3.9-5) L 04/15/18 23:55 Albumin/Globulin Ratio 1.5 % 04/15/18 23:55 Amylase 276 units/L (27-131) H 04/21/18 15:00 Lipase 588 units/L (13-60) H 04/21/18 15:00 Urine Color Yellow (Yellow) 04/15/18 Unknown Urine Turbidity Clear (Clear) 04/15/18 Unknown Urine pH 6.0 (5.0-7.0) 04/15/18 Unknown Ur Specific Douglas 1.015 (1.003-1.030) 04/15/18 Unknown Urine Protein 100 mg/dl mg/dL (Negative) 04/15/18 Unknown Urine Glucose (UA) 50 mg/dL (Negative) 04/15/18 Unknown Urine Ketones 20 mg/dL (Negative) 04/15/18 Unknown Urine Blood Neg (Negative) 04/15/18 Unknown Urine Nitrite Neg (Negative) 04/15/18 Unknown Urine Bilirubin Neg (Negative) 04/15/18 Unknown Urine Urobilinogen < 2.0 mg/dL (<2.0) 04/15/18 Unknown Ur Leukocyte Esterase Neg (Negative) 04/15/18 Unknown Urine WBC (Auto) 4.0 /HPF (0.0-6.0) 04/15/18 Unknown Urine RBC (Auto) 2.0 /HPF (0.0-6.0) 04/15/18 Unknown Salicylates 15.1 mg/dL (2.8-20.0) 04/17/18 04:37 Urine Opiates Screen Presumptive negative 04/15/18 Unknown Urine Methadone Screen Presumptive negative 04/15/18 Unknown Acetaminophen < 5.0 ug/mL (10.0-30.0) L 04/15/18 10:54 Ur Barbiturates Screen Presumptive negative 04/15/18 Unknown Valproic Acid < 2.8 ug/mL (50-100) L 04/21/18 15:00 Ur Phencyclidine Scrn Presumptive negative 04/15/18 Unknown Ur Amphetamines Screen Presumptive negative 04/15/18 Unknown U Benzodiazepines Scrn Presumptive negative 04/15/18 Unknown Urine Cocaine Screen Presumptive negative 04/15/18 Unknown U Marijuana (THC) Screen Presumptive negative 04/15/18 Unknown Drugs of Abuse Note Disclamer 04/15/18 Unknown Plasma/Serum Alcohol < 0.01 % (0-0.07) 04/15/18 10:56 Hepatitis A IgM Ab Nonreactive (NonReactive) 04/15/18 15:45 Hep Bs Antigen Non-reactive (Negative) 04/15/18 15:45 Hep B Core IgM Ab Non-reactive (NonReactive) 04/15/18 15:45 Hepatitis C Antibody Non-reactive (NonReactive) 04/15/18 15:45
--- NOTE | 2018-04-22 18:52 | Discharge Summary ---
Providers - Providers Date of Admission: 04/15/18 15:00 Date of discharge: 04/22/18 Attending physician: JOSÉ ANTONIO SANDERSON 04/15/18 15:02 Consult to Physician [CONS] Routine Comment: DR ARCHER OFFICE NOTIFIED DUY Consulting Provider: GM KOWALSKI Physician Instructions: Reason For Exam: salicylate toxicity 04/15/18 16:37 Consult to Physician [CONS] Stat Comment: Consulting Provider: CHANDNI HENDRICKS Physician Instructions: Reason For Exam: vasc cath 04/15/18 16:38 Consult to Physician [CONS] Stat Comment: Consulting Provider: SIGRID WHITAKER Physician Instructions: Reason For Exam: salicylate overdose 04/16/18 11:20 Consult to Dietitian/Nutrition [CONS] Routine Physician Instructions: Reason For Exam: Reason for Consult: Write/Manage Tube Feeding 04/17/18 12:45 Physical Therapy Evaluation and Treat [CONS] Routine Comment: Reason For Exam: Evaluate and treat 04/17/18 13:45 psychiatry consult [Consult to Mental Health] [CONS] Urgent Reason For Exam: 1013 Place consult to:: Mental Health Notified:: YES Phone number called:: [phone] Was contact made?: Yes If yes, spoke with:: Colin Time called:: 14:03 04/18/18 18:52 Speech Therapy Evaluation and Treat [CONS] Routine Reason For Exam: dysphagia was extubated 04/22/18 15:01 Consult to Physician [CONS] Routine Comment: Consulting Provider: REGIS JACOBS Physician Instructions: Reason For Exam: pancreatitis Primary care physician: FINISH INSPECTOR Hospitalization Condition: Stable Hospital course: Suicidal attempt 1013, mental health consult 1.Acute hypoxic resp failure was on MV and now extubated for numerous days 2. acute toxic Encephalopathy/lethargy due to aspirin od, improving 3. Salicylate poisoning syndrome has completed Poison Control recommendation received HD and IV bicarbonate, improved 4. Hypokalemia and hypokalemia replaced 5. bipolar disorder mental health consult Elevated LFTs and Pancreatic enzyme levels expected outcome from aspirin toxicity -asymptomatic NTD Medically optimized for transfer to inpatient psych. Disposition: DC/TX-65 PSY HOSP/PSY UNIT Time spent for discharge: 31 minutes Core Measure Documentation - Palliative Care Palliative Care/ Comfort Measures: Not Applicable - Core Measures Any of the following diagnoses?: none - VTE Discharge Requirements Deep Vein Thrombosis/Pulmonary Embolism Present on Admission: No Has pt received <5 days of overlap therapy or INR<2.0: No Anticoagulant overlap therapy prescribed at discharge: No Contraindication No Overlap Therapy order at DC: Not Indicated Exam - Physical Exam Narrative exam: GEN: WDWN, NAD, Awake, Alert, Orientated x 3 HEENT: NCAT, EOMI, PERRL, OP Clear NECK: supple, no adenopathy, no thyromegaly, no JVD CVS/HEART: RRR, normal S1S2, pulses present bilaterally CHEST/LUNGS: CTA B, Symmetrical chest expansion, good air entry bilaterally GI/Abdomen: soft, epigastric tenderness, good bowel sounds, no guarding or rebound /Bladder: no suprapubic tenderness, no CVA or paraspinal tenderness EXT/Skin: no c/c/e, no obvious rash MSK: FROM x 4 Neuro: CN 2-12 grossly intact, no new focal deficits Psych: calm - Constitutional Vitals: Temp Pulse Resp BP Pulse Ox 98.5 F 94 H 18 123/71 100 04/20/18 22:46 04/21/18 23:33 04/21/18 23:33 04/20/18 22:46 04/21/18 10:00 Plan Activity: other (no strenous activity) Diet: advance as tolerated Follow up with: PRIMARY CARE, [Primary Care Provider] - 3-5 Days Prescriptions: busPIRone [Buspar] 7.5 mg PO BID #60 tablet OLANzapine [Zyprexa] 10 mg PO HS #30 tablet
[2018-04-22] MEDS: PROVENTIL IH PRN (21:51)
== END 2018-04-22 22:22 | DRG 917 ==
LOC: ED 09:00 → CC1 15:00 → EDBD 15:00 → CC1 18:50 → 3A 04-19 00:18
PROVIDERS: ADMIT Internal Medicine; ATTEND Internal Medicine
PROC: 5A1945Z Respiratory Ventilation, 24-96 Consecutive Hours (ICD-10-PCS; principal; 2018-04-15)
PROC: 0BH17EZ Insertion of Endotracheal Airway into Trachea, Via Natural or Artificial Opening (ICD-10-PCS; 2018-04-15)
PROC: 06HN33Z Insertion of Infusion Device into Left Femoral Vein, Percutaneous Approach (ICD-10-PCS; 2018-04-15)
PROC: 06HM33Z Insertion of Infusion Device into Right Femoral Vein, Percutaneous Approach (ICD-10-PCS; 2018-04-15)
PROC: B51B1ZA Fluoroscopy of Right Lower Extremity Veins using Low Osmolar Contrast, Guidance (ICD-10-PCS; 2018-04-15)
PROC: B54BZZA Ultrasonography of Right Lower Extremity Veins, Guidance (ICD-10-PCS; 2018-04-15)
PROC: 4A033R1 Measurement of Arterial Saturation, Peripheral, Percutaneous Approach (ICD-10-PCS; 2018-04-15)
PROC: 5A1D70Z Performance of Urinary Filtration, Intermittent, Less than 6 Hours Per Day (ICD-10-PCS; 2018-04-15)
PROC: 5A1D70Z Performance of Urinary Filtration, Intermittent, Less than 6 Hours Per Day (ICD-10-PCS; 2018-04-16)
DX: T39.012A Poisoning by aspirin, intentional self-harm, initial encounter (principal); J96.01 Acute respiratory failure with hypoxia; G92 Toxic encephalopathy; E87.2 Acidosis; N17.9 Acute kidney failure, unspecified; R65.10 Systemic inflammatory response syndrome (SIRS) of non-infectious origin without acute organ dysfunction; Z99.11 Dependence on respirator [ventilator] status; F31.9 Bipolar disorder, unspecified; F41.9 Anxiety disorder, unspecified; E83.51 Hypocalcemia; E87.6 Hypokalemia; J45.909 Unspecified asthma, uncomplicated; E66.9 Obesity, unspecified; Z68.30 Body mass index [BMI] 30.0-30.9, adult; Y92.098 Other place in other non-institutional residence as the place of occurrence of the external cause
CPT/HCPCS: 36415; 36556; 36600; 71045; 76937; 77001; 80048; 80053; 80074; 80164; 80307; 80320; 81001; 82140; 82150; 82550; 82803; 82962; 83615; 83690; 83735; 84075; 84132; 84450; 84460; 84484; 85025; 87040; 87070; 87205; 93005; 93010; 94002; 94003; 94640; 94760; 96361; 96365; 96367; 96375; 96376; C1752; G0480; G8996-GN; G8997-GN; G8998-GN; J0171; J0330; J0610; J1265; J1630; J1644; J2060; J2250; J2543; J2704; J3010; J3370; J3475; J3480; J7030; J7040; J7050; J7070